=== PATIENT | male | born 1950 | race Caucasian/White ===

== ENCOUNTER 2023-10-25 12:00 | Outpatient (REF) | payer MEDICARE, OTHER, SELFPAY ==
[2023-10-25 17:32] LABS: MANUAL DIFF FLAG NO
[2023-10-25 17:34] LABS: Basophils Percent Auto 0.6 % (0-2); Eosinophils Absolute Auto 0.1 X10*3/uL (0.0-0.4); Hematocrit 43.7 % (42.0-52.0); Hemoglobin 14.8 g/dl (14.0-18.0); Imm Gran Abs Auto 0.01 X10*3/uL (0.00-0.03); Imm Gran Pct Auto 0.2 % (0.0-0.4); Lymphocytes Absolute Auto 1.3 X10*3/uL (1.2-4.9); Lymphocytes Percent Auto 25.6 % (20-40); Mean Corpuscular HGB Conc 33.9 g/dl (31.0-36.0); Mean Corpuscular Hemoglobin 31.8 pg (27.0-33.0); Mean Corpuscular Volume 93.8 fL (80.0-98.0); Mean Platelet Volume 11.5 fL (9.4-12.4); Monocytes Absolute Auto 0.6 X10*3/uL (0.1-1.2); Monocytes Percent Auto 11.3 % (2-11); Neutrophils Percent Auto 60.3 % (45-73); Platelet Count 204 X10*3/uL (160-400); Red Blood Count 4.66 X10*6/uL (4.60-5.80); Red Cell Distribution Width 12.8 % (11.0-16.0)
[2023-10-25 17:52] LABS: Alanine Aminotransferase 14 U/L (0-40); Albumin Level 4.2 g/dL (3.5-5.0); Alkaline Phosphatase 53 U/L (39-117); Anion Gap 13 (12-20); Aspartate Amino Transferase 18 U/L (5-37); Bilirubin Total 0.8 mg/dL (0.0-1.0); Blood Urea Nitrogen 17 mg/dL (9-16); Carbon Dioxide 27 mmol/L (22-29); Chloride 106 mmol/L (96-108); Estimated Glomerular Filt Rate > 60; Glucose Random 96 mg/dL (60-115); Potassium 4.5 mmol/L (3.3-5.1); Sodium 141 mmol/L (135-145); Total Protein 7.2 g/dL (6.5-8.0)
[2023-10-25 18:07] LABS: Thyroid Stimulating Hormone 0.84 uIU/mL (0.32-4.0)
[2023-10-25 18:20] LABS: Erythrocyte Sedimentation Rate 4 MM/HR (0-15)
[2023-10-28 13:58] LABS: Immunoglobulin A 80 mg/dL (70-320)
[2023-10-30 09:22] LABS: Gliadin Deamidated IgA Ab <1.0 U/mL; Gliadin Deamidated IgG Ab <1.0 U/mL; Transglutaminase Ab IgG <1.0 U/mL; Transglutaminase IgA <1.0 U/mL
[2023-10-31 11:54] LABS: Endomysial IgA Antibody Negative (Negative)
== END 2023-10-25 12:01 | disposition home or self-care (01) ==
LOC: HO.MANLDS 12:00
PROVIDERS: Visit Provider Internal Medicine
DX: K58.9 Irritable bowel syndrome, unspecified (principal); K57.30 Diverticulosis of large intestine without perforation or abscess without bleeding
CPT/HCPCS: 36415; 80053; 82784; 84443; 85025; 85652; 86231; 86258; 86364

== ENCOUNTER 2023-12-06 10:35 | Outpatient (REF) | payer MEDICARE, OTHER, SELFPAY ==
[2023-12-06 14:48] LABS: Alanine Aminotransferase 20 U/L (0-40); Alkaline Phosphatase 54 U/L (39-117); Anion Gap 10 (12-20); Aspartate Amino Transferase 17 U/L (5-37); Blood Urea Nitrogen 17 mg/dL (9-16); Calcium 9.5 mg/dL (8.4-10.2); Carbon Dioxide 28 mmol/L (22-29); Chloride 105 mmol/L (96-108); Cholesterol 216 mg/dL (<200); Estimated Glomerular Filt Rate > 60; Glucose Random 103 mg/dL (60-115); HDL Cholesterol 38 mg/dL (>40); LDL Cholesterol Calculated 162 mg/dL (<100); Potassium 4.4 mmol/L (3.3-5.1); Sodium 139 mmol/L (135-145); Total Protein 6.9 g/dL (6.5-8.0); Triglycerides 84 mg/dL (<150)
== END 2023-12-06 10:36 | disposition home or self-care (01) ==
LOC: HO.MANLDS 10:35
PROVIDERS: Visit Provider Physician Assistant
DX: E78.5 Hyperlipidemia, unspecified (principal)
CPT/HCPCS: 36415; 80053; 80061

== ENCOUNTER 2024-01-10 15:45 | Outpatient (REF) | payer MEDICARE, OTHER, SELFPAY ==
[2024-01-10 18:24] LABS: Erythrocyte Sedimentation Rate 6 MM/HR (0-15)
[2024-01-10 18:30] LABS: Alanine Aminotransferase 21 U/L (0-40); Albumin Level 4.1 g/dL (3.5-5.0); Alkaline Phosphatase 63 U/L (39-117); Anion Gap 17 (12-20); Aspartate Amino Transferase 19 U/L (5-37); Bilirubin Total 0.5 mg/dL (0.0-1.0); Blood Urea Nitrogen 21 mg/dL (9-16); C Reactive Protein < 0.10 mg/dL (< or = 0.50); Calcium 9.2 mg/dL (8.4-10.2); Carbon Dioxide 23 mmol/L (22-29); Chloride 107 mmol/L (96-108); Estimated Glomerular Filt Rate > 60; Glucose Random 77 mg/dL (60-115); Potassium 3.9 mmol/L (3.3-5.1); Sodium 143 mmol/L (135-145); Total Protein 7.2 g/dL (6.5-8.0)
[2024-01-15 03:18] LABS: Aldolase 4.5 U/L (<=8.1)
== END 2024-01-10 15:46 | disposition home or self-care (01) ==
LOC: HO.MANLDS 15:45
PROVIDERS: Visit Provider Internal Medicine
DX: E78.5 Hyperlipidemia, unspecified (principal); R10.13 Epigastric pain; T46.5X5D Adverse effect of other antihypertensive drugs, subsequent encounter
CPT/HCPCS: 36415; 80053; 82085; 82550; 85652; 86140

== ENCOUNTER 2024-04-13 09:20 | Outpatient (REF) | payer MEDICARE, OTHER, SELFPAY ==
[2024-04-13 13:39] LABS: Cholesterol 137 mg/dL (<200); HDL Cholesterol 40 mg/dL (>40); LDL Cholesterol Calculated 82 mg/dL (<100); Triglycerides 78 mg/dL (<150)
== END 2024-04-13 09:21 | disposition home or self-care (01) ==
LOC: HO.MANLDS 09:20
PROVIDERS: Visit Provider Internal Medicine
DX: E78.5 Hyperlipidemia, unspecified (principal)
CPT/HCPCS: 36415; 80061

== ENCOUNTER 2024-08-27 11:26 | Outpatient (AMB) | payer MEDICARE, OTHER, SELFPAY ==
--- NOTE | 2024-08-27 11:30 | A.OFFVIS_ITS ---
Intake Visit Reasons: New Pt - B/L neck/back pain Intake Note: Ralph is a 74 year old male right hand dominant male who presents today as a new patient for a evaluation of his B/L neck/back pain.No hx of injury. Patient reports ongoing pain for many years. Patient mentions that he is going to PT at [facility] which is not giving him relief. Patient states that he took a muscle relaxer which made him feel very sleepy. 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 Chronic. Bothers him daily. Can't lay on his back, with headache occipital/temporal area. Points to thoracic par aspinals and rhomboids. Occasionally would go to arms but not consistant. Occassionally bothers legs but denies significant low back pain. No constant numbness on fingers or toes. History of lumbar RFA at [facility] in 2023, with good relief. He also occipital nerve block last year, but didn't help. Had facet injections and also had RFA cervical, [address] [facility]. No trigger point injections yet. No epidural injections. Tried flexeril from PCP, helped a lot but makes him too sleepy. COUNTS INCLUDE 234 BEDS AT THE [facility] Social History (Updated 08/27/24 @ 11:38 by Juaquin Aquino) Alcohol intake: never Patient Tobacco Use Status: Never used Tobacco Current occupational status: retired Current occupation: right hand dominant Review of Systems Const All systems reviewed & are unremarkable except as noted in HPI and below Physical Exam Constitutional: Patient appears to be in no acute distress, well nourished and well developed. Patient was appropriately conversant and oriented. Good historian. MSK: Inspection reveals appropriate head and neck positioning. Tender on left splenius, left upper trapezius and left rhomboids. Also indicates tenderness on thoracic facets and paraspinals. Cervical ROM was full. Spurling's sign negative. Bilateral shoulder, elbow and wrist ROM WNL. No ligamentous laxity or crepitance. No increased effusion. Positive left Molina sign but negative empty can sign. No scapular winging. Strength is 5/5 in all muscle groups tested. No increased tone noted. Neurological: Neurologic examination of the upper and lower extremities was nonfocal with intact sensation, muscle stretch reflexes and without focal motor deficits . Conti?s negative bilaterally. Babinski was down going bilaterally. Clonus was negative. Gait is non-antalgic without loss of balance. Assessment & Plan Assessment & Plan (1) Myofascial pain: Code(s): M79.18 - Myalgia, other site Category: Medical (2) Cervicogenic headache: Code(s): G44.86 - Cervicogenic headache Category: Medical (3) Thoracic facet syndrome: Code(s): M47.894 - Other spondylosis, thoracic region Category: Medical Plan Suspect myofascial pain affecting splenius, trapezius and rhomboids. We talked about trial of trigger point injections here locally, before he goes back to [facility] for further treatment. We talked about pursuing thoracic facet injections at [facility] if trigger point injections do not help. Trigger point injections to be scheduled. He is unfortunately unable to tolerate cyclobenzaprine. Assessment and plan discussed with patient, and patient was agreeable. All questions were answered thoroughly. Total of 45 minutes spent today including chart review, results review, history taking, physical examination, discussion of assessment and plan, and coordinat ion of care. Mikaela Benavides MD, RASHID Board Certified, [place] Board [employer] and Rehabilitation (ABPMR) Board Certified, [place] Board of Electrodiagnostic Medicine (ABEM) Coding Level of Care Code New Pt Level 4 (67989) Diagnoses Myofascial pain M79.18 Cervicogenic headache G44.86 Thoracic facet syndrome M47.894
--- OUTSIDE RECORDS SUMMARY | 2024-08-27 12:36 | XMS_ITS | Data Portability ---
Author Organization [facility], [id number] [place] [address] Assessment No assessment recorded. Plan of Treatment Reminders Order Date Submit Date Provider Last Modified By Organization Details Last Modified Time Details Appointments None recorded. Lab None recorded. Referral None recorded. Procedures None recorded. Surgeries None recorded. Imaging None recorded. Medication Orders Augmentin 875 mg-125 mg tablet 2022 023 JOSE ALEJANDRO [facility] #[id number], [address] [place], [address], 3 17:30:06 Flonase Allergy Relief 50 mcg/actuat ion nasal spray,susp ension 2022 023 [email or web address] [facility][id number], [address] [place], [address], 3 08:25:25 Patient TargetsNo targets recorded. Patient Instructions Encounter Date Encounter Id Patient Instructions Last Modified By Organization Details Last Modified Time 08/20/2023 [id number] Acute Sinusitis: Care Instructions [email or web address] Not available 08/20/2023 17:30:02 Based on your presentation and exam, you are being diagnosed with Sinusitis. Rhinosinusitis is most often viral and will resolve on its own in 7-10 days. Symptoms that last longer than 2 weeks an antibiotic could be considered. Based on your presentation, and antibiotic was written. The following are my recommendations to help your symptoms and to allow your condition to improve: 1. Drink plenty of fluids while you are ill- stay hydrated 2. Rest - don't overexert yourself - this includes sports and any gym routines. 3. I suggest taking an antihistamine - like Claritin, Zyrtec, or Benedryl 4. If you take OTC cold medication I would recommend Marla-Aida Cold/Cough. 5. Mucinex with a lot of water is ok - if you are having trouble clearing your nasal passages of mucous. However, if you start to cough then discontinue - this can increase coughing due to a watery post nasal drip. 6. Saline Nasal [place] is recommended. Since an antibiotic was prescribed you need to complete the full course - this is important so you don't develop any antibiotic resistance to future infections. I advise taking a Probiotic like Florastor since you are on an antibiotic - this will help you re-colonize your body with the good bacteria. Typically, it will take 6 months for you to restore your normal body randee after an antibiotic. Don't hesitate to be seen again if you develop: 1. Fever > 100.5 2. Worsening Headache 3. Stiff Neck 4. Worsening Cough or Shortness of breath 5. Visual Changes. The antibiotic should start to work in 4-5 days. You may not notice immediate response. Thank you for using [facility] today, please feel free to contact our office if you have any questions or concerns. [email or web address] Not available 08/20/2023 17:29:20 Reason for Referral None Reported. Medical Equipment None Reported. Medications Name Sig Start Date Stop Date Status Note LastModified by Organization Details LastModified Time celecoxib 200 mg capsule TAKE 1 CAPSULE BY MOUTH TWICE A DAY active Not Available Not Available No t Available cyclobenzaprin e 10 mg tablet TAKE 1 TABLET BY MOUTH THREE TIMES A DAY FOR 15 DAYS active Not Available Not Available No t Available amoxicillin 500 mg capsule TAKE 1 CAPSULE BY MOUTH EVERY 8 HOURS FOR 10 DAYS active Not Available Not Available No t Available Augmentin 875 mg-125 mg tablet Take 1 tablet twice a day by oral route for 10 days. 2022 active Not Available Not Available Not Avai lable azithromycin 250 mg tablet TAKE 2 TABLETS BY MOUTH TODAY, THEN TAKE 1 TABLET DAILY FOR 4 DAYS DIRECTED active Not Available Not Available No t Available tizanidine 4 mg tablet TAKE 1 TABLET BY MOUTH TWICE A DAY NEEDED active Not Available Not Available No t Available tramadol 50 mg tablet TAKE 1 TABLET BY MOUTH EVERY 8 HOURS NEEDED FOR PAIN active Not Available Not Available No t Available dicyclomine 20 mg tablet TAKE 1 TABLET BY MOUTH FOUR TIMES A DAY NEEDED FOR 7 DAYS active Not Available Not Available No t Available hyoscyamine 0.[address] 1 TABLET UNDER THE TONGUE AND ALLOW TO DISSOLVE THREE TIMES A DAY NEEDED FOR 30 DAYS active Not Available Not Available No t Available diclofenac sodium 75 mg tablet,delayed release TAKE 1 TABLET BY MOUTH TWICE A DAY WITH MEALS FOR 30 DAYS active Not Available Not Available No t Available levofloxacin 500 mg tablet TAKE 1 TABLET BY MOUTH EVERY DAY active Not Available Not Available No t Available zolpidem 10 mg tablet TAKE 1 TABLET BY MOUTH EVERY DAY NEEDED active Not Available Not Available No t Available hydrocortisone 2.5 % topical ointment APPLY TO AFFECTED AREA TWICE A DAY active Not Available Not Available No t Available fluticasone propionate 50 mcg/actuation nasal spray,suspensi on SPRAY 2 SPRAYS INTO EACH NOSTRIL EVERY DAY FOR 30 DAYS 2022 active Not Available Not Available Not Avai lable diazepam 5 mg tablet TAKE 1 TABLET BY MOUTH TWICE A DAY active Not Available Not Available No t Available oxycodone 5 mg tablet TAKE 1 TABLET (5 MG) BY MOUTH EVERY 8 HOURS NEEDED active Not Available Not Available No t Available rosuvastatin 5 mg tablet TAKE 1 TABLET (5 MG TOTAL) BY MOUTH DAILY. active Not Available Not Available No t Available Vitals Date Recorded Body height Body mass index (BMI) Body weight Oxygen saturation Oxygen saturation in Arterial blood by Pulse oximetry Heart rate Respiratory rate Body temperature Systolic blood pressure Diastolic blood pressure Provider Name and Address Organization Details Last Updated DateTime 3 180.34 cm 25.8 kg/m2 76908.5 9 g 99 % 99 % 57 /min 18 /min 98 [degF] 182 mm[Hg] 92 mm[Hg] HARIKA HERNANDEZ [facility] [place], [address], [place] - [facility] 3 17:18:05 Social History None recorded. Functional Status None recorded. Mental Status None recorded. Family History Nothing Reported. Medical History No medical history recorded. Past Encounters Encounter ID Performer Location Encounter Start Date Encounter Closed Date Diagnosis/Indication Diagnosis SNOMED-CT Code Diagnosis ICD10 Code [id number] [address] [address] 02/20/2016 17:01:31 02/20/2016 19:02:50 [id number] [address] [place] [address] 12/19/2016 10:44:34 12/19/2016 12:12:23 [id number] [address] [facility] [place]OLPH Mccord [address] 11/17/2016 18:47:51 11/17/2016 19:22:[id number] [place] [address] 01/09/2018 16:10:21 01/09/2018 16:56:38 [id number] [address] [place] [address] 09/15/2018 11:14:19 09/15/2018 12:19:19 [id number] [address] [facility] [place] [address] 08/31/2018 13:26:41 08/31/2018 15:32:38 [id number] [address] [facility] [place] [address] 09/16/2017 11:32:53 09/16/2017 12:29:03 [id number] [address] [facility] [place] [address] 06/09/2019 14:21:27 06/09/2019 15:06:37 [id number] [address] [facility] [address] 09/18/2016 11:25:55 09/18/2016 12:11:29 [id number] [address] [address] 12/14/2016 11:53:57 12/14/2016 12:44:13 [id number] HARIKA HERNANDEZ [address] [facility] [place] [address] 08/20/2023 16:57:49 08/20/2023 17:31:37 Acute sinusitis [id number] J01.90 Health Concerns Section Related Observation LastModified by Organization Detai ls LastModified Time None Recorded Concern Status LastModified by Organization Details LastModified Time None Recorded Advance Directives Directive None Recorded Payers Encounter Date Sequence Insurance Name Policy Number Policy Echols Covered Member ID Echols Member ID Guarantor Name 01/09/2018 1 [place]: [facility] Ralph Masunmaldonado [id number] Ralph Grajeda Bielunis 01/09/2018 2 COMMONWEALTH INDEMNITY PLAN - UNICARE [id number] Brigida Fonseca Bielunis [id number] Ralph Grajeda Bielunis 08/31/2018 1 [place] [facility] Ralph Masunis [id number] Ralph Grajeda Bielunis 08/31/2018 2 COMMONWE[employer] INDEMNITY PLAN - UNICARE [id number] Brigida oFnseca Bielunis [id number] Ralph Grajeda Bielunis 09/15/2018 1 [place] [facility] Ralph Velásquez [id number] Ralph Grajeda Bielunis 09/15/2018 2 COMMONWEALTH INDEMNITY PLAN - UNICARE [id number] Brigida Fonseca Bielunis [id number] Ralph Grajeda Bielunis 06/09/2019 1 [place] [facility] Ralhp Masunis [id number] Ralph Grajeda Bielunis 06/09/2019 2 COMMONWEALTH INDEMNITY PLAN - [employer]ARE [id number] Brigida Fonseca Bielunis [id number] Ralph Grajeda Bielunis 08/20/2023 1 [place]: [employer] Ralph Masunis [id number] Ralph Grajeda Bielunis 08/20/2023 2 COMMONWEALTH INDEMNITY PLAN - [employer] [id number] Brigida Fonseca Bielunis [id number] Ralph Grajeda Bijoséunis Notes Date Note Type Note Provider Name and Address Organization Details Recorded Time 08/20/2023 text/html 73 y.o male pt presents with sinus congestion and pressure for 3 weeks. Pt has had Sinusitis in the past. He denies fever, sob or chest pain YOVANI ESPINO, PA [address] [place], [address], [place] - [facility] 08/20/2023 17:30:06
== END 2024-08-27 12:35 | disposition home or self-care (01) ==
PROVIDERS: Visit Provider Physical Medicine & Rehabilitation
DX: M79.18 Myalgia, other site (principal); G44.86 Cervicogenic headache; M47.894 Other spondylosis, thoracic region
CPT/HCPCS: 99204

== ENCOUNTER → 2024-08-27 11:26 | Outpatient (BNVA) | payer MEDICARE, OTHER, SELFPAY | PROVIDERS: Visit Provider Physical Medicine & Rehabilitation | DX: M79.18 Myalgia, other site (principal); G44.86 Cervicogenic headache; M47.894 Other spondylosis, thoracic region | CPT/HCPCS: 99202 ==

== ENCOUNTER 2024-11-30 15:48 | Outpatient (REF) | payer MEDICARE, OTHER, SELFPAY ==
[2024-11-30 17:44] LABS: MANUAL DIFF FLAG NO
[2024-11-30 17:48] LABS: Basophils Absolute Auto 0.1 X10*3/uL (0.0-0.2); Basophils Percent Auto 0.9 % (0-2); Eosinophils Absolute Auto 0.3 X10*3/uL (0.0-0.4); Eosinophils Percent Auto 2.7 % (0-4); Hematocrit 34.2 % (42.0-52.0); Hemoglobin 11.2 g/dl (14.0-18.0); Imm Gran Abs Auto 0.08 X10*3/uL (0.00-0.03); Imm Gran Pct Auto 0.9 % (0.0-0.4); Lymphocytes Absolute Auto 1.7 X10*3/uL (1.2-4.9); Lymphocytes Percent Auto 18.3 % (20-40); Mean Corpuscular HGB Conc 32.7 g/dl (31.0-36.0); Mean Corpuscular Hemoglobin 30.6 pg (27.0-33.0); Mean Corpuscular Volume 93.4 fL (80.0-98.0); Mean Platelet Volume 9.6 fL (9.4-12.4); Monocytes Absolute Auto 0.9 X10*3/uL (0.1-1.2); Monocytes Percent Auto 10.1 % (2-11); Neutrophils Absolute Auto 6.2 x10*3/uL (2.0-8.3); Neutrophils Percent Auto 67.1 % (45-73); Platelet Count 610 X10*3/uL (160-400); Red Blood Count 3.66 X10*6/uL (4.60-5.80); Red Cell Distribution Width 13.2 % (11.0-16.0); White Blood Count 9.2 X10*3/uL (4.8-10.8)
--- OUTSIDE RECORDS SUMMARY | 2024-11-30 18:29 | XMS_ITS | Clinical Summary ---
Author Organization [facility] Address [address] [place] [address] Care Team Providers Care License Clerk Name Role Phone Gil Pridelon Primary Care Provider Unav ailable Medications traMADol HCl (Ultram) 50 MG tablet ULTRAM 50MG, NEEDED #0.00, starting 01/07/2007, No Refill. Active. 0 0 01/07/2007 Active Fish Oil (FISH OIL) 1000 MG Cap FISH OIL 1000MG, 1 Every Day #0.00, starting 01/07/2007, No Refill. Active. 0 0 01/07/2007 Active Eszopiclone (Lunesta) 1 MG Tab LUNESTA 1MG, 1 Every Day At Bedtime As Needed #0.00, starting 01/07/2007, No Refill. Active. 0 0 01/07/2007 Active Active Problems Problem Noted Date Diagnosed Date Remarried 02/13/2019 Overview (09/29/2023): Onset: 01/07/2007; Description: Sleep Medicine Migration - Source Name: MARITAL STATUS: Remarried Daily alcohol use 02/13/2019 Overview (09/29/2023): Onset: 01/07/2007; Description: Sleep Medicine Migration - Source Name: ALCOHOL: The patient consumes 1 beverage daily 02/13/2019 Overview (09/29/2023): Onset: 01/07/2007; Description: Sleep Medicine Migration - Source Name: MARITAL STATUS: , living with spouse Never used tobacco 02/13/2019 Overview (09/29/2023): Onset: 01/07/2007; Description: Sleep Medicine Migration - Source Name: TOBACCO USE: Has no smoking history Restless legs syndrome 02/13/2019 Overview (09/29/2023): Onset: 01/07/2007; Description: Sleep Medicine Migration - Source Name: Syndrome, restless legs (333.94); Notes: ASSESSMENT: Atypical symptoms, but I feel that this is a likely diagnosis and trial of Rx recommended. He may have primarily insomnia and anxiety. 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 Overview (09/29/2023): Onset: 01/07/2007; Description: Sleep Medicine Migration - Source Name: Disorders, organic, sleep related bruxism Social History Tobacco Use Types Packs/Day Years Used Date Smoking Tobacco: Never Assessed Sex and Gender Information Value Date Recorded Sex Assigned at Not on file Legal Sex Male 5:32 PM EDT Gender Identity Not on file Sexual Orientation Not on file Last Filed Vital Signs Vital Sign Reading Time Taken Comments Blood Pressure 116/68 01/07/2007 8:30 AM EDT LUE/Sitting LUE/Sitting Pulse - - Temperature - - Respiratory Rate 12 01/07/2007 8:30 AM EDT Oxygen Saturation - - Inhaled Oxygen Concentration - - Weight 86 kg (189 lb 8.1 oz) 01/07/2007 8:30 AM EDT Height 179.7 cm (5' 10.75 ) 01/07/2007 8:30 AM EDT Body Mass Index 26.62 01/07/2007 8:30 AM EDT Plan of Treatment Health Maintenance Due Date Last Done Comments Hepatitis C Screening 1950 DTaP/Tdap/Td (1 - Tdap) 1969 Pneumococcal 50+ years (1 of 1 - PCV) 2001 Zoster (Shingrix) (1 of 2) 2001 COVID-19 Vaccine ( - 2023-2 5 season) 2024 Influenza (#1) 2024 RSV (1 - 1-dose 75+ series) 2026 Abdominal Aorta Imaging Discontinued HPV Vaccine Aged Out No longer eligi ble based on patient's age to complete this topic Hep A Aged Out No longer eligi ble based on patient's age to complete this topic Hep B Aged Out No longer eligi ble based on patient's age to complete this topic Hib Aged Out No longer eligi ble based on patient's age to complete this topic Meningococcal ACWY Aged Out No longer eligible based on patient's age to complete this topic Zoster (Zostavax) Discontinued Care Teams License Clerk Relationship Specialty Start Date End Date Gil Pride PCP - General 04/01/23
--- OUTSIDE RECORDS SUMMARY | 2024-11-30 18:29 | XMS_ITS | Continuity of Care Document ---
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) MDM HIGH MUST MEET 2 OUT OF 3 ELEMENTS: PROBLEMS, DATA OR RISK ELEMENT 1: PROBLEMS 1 OR MORE CHRONIC ILLNESS W/SEVERE EXACERBATION, PROGRESSION MAY REQUIRE HOSPITAL LEVEL CARE OR 1 ACUTE OR CHRONIC ILLNESS OR INJURY THAT POSES A THREAT TO LIFE OR BODILY FUNCTION ELEMENT 2: DATA: MUST MEET 2 OF 3 CATEGORIES CATEGORY 1 REVIEW OF PRIOR EXTERNAL NOTES REVIEW OF THE RESULTS ORDERING OF EACH TEST ASSESSMENT REQUIRING INDEPENDENT HISTORIAN(S) CATEGORY 2: INDEPENDENT INTERPRETATION OF TESTS BY ANOTHER PROVIDER/SPECIALI ST CATEGORY 3: DISCUSSION OF MGT OR TEST INTERPRETATION W/EXTERNAL PHYSICIAN/SPECIAL IST ELEMENT 3: RISK HIGH RISK OF MORBIDITY FROM ADDITIONAL DIAGNOSTIC TESTING OR TREATMENT PROVIDER MUST THOROUGHLY DOCUMENT EACH ELEMENT THAT IS COVERED The patient presented to their appointment today for multiple concerns requiring moderate to high-level decision making and took over 40-45 minutes for an adequate and appropriate history, exam, assessment and treatment plan. This appointment was done with an established patient. Not available 11/30/2024 16:54:51 Plan of Treatment Reminders Order Date Submit Date Provider Last Modified By Organization Details Last Modified Time Details Appointments FOLLOW UP 2024 04:15P M DR BABOTT Not available Not available Not available FOLLOW UP 2024 11:45A M HARIKA RAY Not available Not available Not available Lab None recorded. Referral None recorded. Procedures None recorded. Surgeries None recorded. Imaging CT, abdomen, w/ contrast 2024 025 [facility], [address], [place], [address], 11/30/2024 16:56:04 Medication Orders None recorded. Patient TargetsNo targets recorded. Patient InstructionsNo instructions recorded. Reason for Referral None Reported. Problems Name Problem SNOMED Code Status Onset Date Resolution Date Notes Provider Name and Address Organization Details Recorded Time Headache 15982716 Active 2022 Jennifer galeas [facility] 3 09:01:52 Cervical facet joint pain 702681601 [facility] 09:[facility] Hyperlipi demia 37528465 Active 2022 Jennifer galeas [facility] 3 09:02:14 Fibromyal parisa 281128231 Active 2022 Jennifer galeas [facility] 3 09:02:19 Insomnia 854855843 Active 2022 Jennifer galeas [facility] 3 09:02:24 Prediabet es 430306041 Active 2022 Jennifer galeas [facility] 3 09:02:30 Abdominal bloating 916923573 Active 2022 Jennifer galeas [facility] 3 09:02:38 Irritable bowel syndrome 97199388 Active 2022 Jennifer galeas [facility] 3 09:02:42 Abdominal aortic atheroscl erosis 494269895 Active 2022 Jennifer galeas [facility] 3 09:02:52 Erectile dysfuncti on 648585228 Active 2022 Jennifer galeas [facility] 3 09:03:02 Cielo thyroidit is 04629360 Active 2022 Jennifer galeas [facility] 3 09:03:12 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 222027621905 109 Active 2022 Jenniferjess Tellez null, [facility] 3 09:03:24 Family history of polyp of colon 117802813 Active 2022 Jennifer Tellez null, [facility] 3 09:10:53 Family history of diabetes mellitus 925946832 Active 2022 Jenniferjess Tellez null, [facility] 3 09:11:01 Family history of malignant neoplasm of prostate 452939603 Active 2022 Jenniferjess Tellez null, [facility] 3 09:11:10 Lumbar spondylos is 691517799 Active 2022 Robin Abbott, [address] [place] [address], [phone], [facility], [place] 3 14:52:09 Acute sinusitis 64904615 Active 2022 Robin Abbott, [address] [place] [address], [phone], [facility], [place] 3 14:16:15 Cervico-o ccipital neuralgia 47294378 Active 2022 HARIKA RAY [address] [place] [address], [address], [facility], [place] 3 16:27:39 Vitamin D deficienc y 43803242 Active 2022 Robin Abbott, [address] [place] [address], [address], [facility], [place] 3 11:14:40 Osteoarth ritis 097790738 Active 2022 HARIKA RAY [address] [place] [address], [address], [facility], [place] 3 13:27:19 Diverticu losis of colon 505725354 Active 2023 Robin Abbott DO [address] [place] [address], [phone], [facility], [place] 4 11:47:44 Epigastri c pain 52841225 Active 2023 Robin Abbott DO [address] [place] [address], [address], [facility], [place] 4 15:29:23 Hiatal hernia with gastroeso phageal reflux 954117441 Active 2023 HARIKA RAY [address] [place] [address], [phone], [facility], [place] 4 13:59:50 Male pattern alopecia 92023922 Active 2023 Robin Abbott DO [address] [place] [address], [address], [facility] 4 15:28:02 Myalgia caused by statin 067575024906 12524 Active 2023 Robin Abbott DO [address] [place] [address], [address], [facility], [place] 4 15:34:34 Cough 92123224 Active 2023 Robin Abbott DO [address] [place] [address], [phone], [facility] 4 13:31:04 Gastritis 6587429 Active 2024 HARIKA RAY [address] [place] [address], [address], [facility], [place] 5 15:20:34 Fever 387494528 Active 2024 HARIKA RAY [address] [place] [address], [address], [facility], [place] 5 15:33:01 Anemia 521633133 Active 2024 Robin Abbott DO [address] [place] [address], [address], [facility], [place] 5 08:07:11 Problem Notes None recorded. Medical Equipment None Reported. Allergies Allergen ID Allergen Name Allergen Category Reaction Reaction Severity Criticality Documentation Date Start Date Code Code System Note Provider Name and Address Organization Details Recorded Time 6328 cephalexi n medicatio n Not available Not available Not available 09/18/2022 2231 RxNorm Jennifer Geoff galeas [facility] 3 09:01:36 6329 pravastat in medicatio n Not available Not available Not available 09/18/2022 21322 RxNorm Jennifer galeas [facility] 3 09:01:42 6330 Bactrim medicatio n Not available Not available Not available 09/18/2022 57192 9 RxNorm Jennifer galeas [facility] 3 09:01:46 6988 oxycodone medicatio n Not available Not available Not available 02/18/2023 7804 RxNorm GI upset Rony Sandoval gudelia [facility] 4 15:03:17 Medications Name Sig Start Date Stop Date Status Note LastModified by Organization Details LastModified Time celecoxib 200 mg capsule TAKE 1 CAPSULE BY MOUTH EVERY DAY NEEDED FOR PAIN 11/14 completed Not Available Not Available Not Available cyclobenzap rine 10 mg tablet TAKE 1 TABLET BY MOUTH THREE TIMES A DAY FOR 15 DAYS 10/24 completed Not Available Not Available Not Available amoxicillin 500 mg capsule TAKE 1 CAPSULE BY MOUTH EVERY 8 HOURS FOR 10 DAYS 10/24 completed Not Available Not Available Not Available prednisone 10 mg tablet PLEASE SEE ATTACHED FOR DETAILED DIRECTION S 09/19 completed Not Available Not Available Not Available doxycycline hyclate 100 mg capsule TAKE 1 CAPSULE BY MOUTH TWICE A DAY FOR 10 DAYS 11/24 completed Not Available Not Available Not Available tizanidine 4 mg tablet TAKE 1 TABLET BY MOUTH TWICE A DAY NEEDED 10/24 completed Not Available Not Available Not Available meloxicam 15 mg tablet TAKE 1 TABLET BY MOUTH EVERY DAY 09/19 completed Not Available Not Available Not Available sucralfate 1 gram tablet TAKE 1 TABLET BY MOUTH FOUR TIMES A DAY DIRECTED FOR 15 DAYS active Not Available Not Available No t Available famotidine 40 mg tablet TAKE 1 TABLET BY MOUTH EVERY DAY NEEDED active Not Available Not Available No t Available prednisone 20 mg tablet TAKE 2 TABLETS BY MOUTH EVERY DAY FOR 7 DAYS 08/20 /2024 completed Not Available Not Available Not Available fluorouraci l 5 % topical cream PLEASE SEE ATTACHED FOR DETAILED DIRECTION S 09/19 completed Not Available Not Available Not Available Zithromax Z-Isaac 250 mg tablet TAKE 2 TABLETS (500 MG) BY ORAL ROUTE ONCE DAILY FOR 1 DAY THEN 1 TABLET (250 MG) BY ORAL ROUTE ONCE DAILY FOR 4 DAYS 07/26 completed Not Available Not Available Not Available minoxidil 2.5 mg tablet TAKE 2 TABLETS BY MOUTH EVERY DAY 2023 active Not Available Not Available Not Avai lable tramadol 50 mg tablet TAKE 1 TABLET BY MOUTH EVERY 8 HOURS NEEDED FOR PAIN 04/09 completed Not Available Not Available Not Available triamcinolo ne acetonide 0.1 % topical cream APPLY TO AFFECTED AREA TWICE A DAY 11/26 completed Not Available Not Available Not Available butalbital- acetaminoph en-caffeine 50 mg-325 mg-40 mg tablet Take 1 tablet every 4 hours by oral route as needed for 7 days. 2023 active Not Available Not Available Not Avai lable hydrocortis one 2.5 % topical cream with perineal applicator INSERT INTO THE RECTUM 2 (TWO) TIMES A DAY. DO NOT USE LONGER THAN 7 DAYS IN A ROW. active Not Available Not Available No t Available methocarbam ol 750 mg tablet TAKE 1 TABLET BY MOUTH TWICE A DAY NEEDED FOR MUSCLE SPASMS active Not Available Not Available No t Available dicyclomine 20 mg tablet TAKE 1 TABLET BY MOUTH FOUR TIMES A DAY NEEDED FOR 7 DAYS 11/14 completed Not Available Not Available Not Available doxycycline monohydrate 100 mg capsule TAKE 1 CAPSULE BY MOUTH TWICE A DAY FOR 10 DAYS 09/19 completed Not Available Not Available Not Available pantoprazol e 40 mg tablet,triston yed release TAKE 1 TABLET BY MOUTH EVERY DAY DIRECTED active Not Available Not Available No t Available hyoscyamine 0.125 mg sublingual tablet 04/09 completed Not Available Not Available Not Available omeprazole 20 mg capsule,del ayed release TAKE 1 CAPSULE BY MOUTH EVERY DAY 30 MINUTES BEFORE MORNING MEAL FOR 90 DAYS active Not Available Not Available No t Available diclofenac sodium 75 mg tablet,triston yed release TAKE 1 TABLET BY MOUTH TWICE A DAY WITH MEALS FOR 30 DAYS 11/14 completed Not Available Not Available Not Available levofloxaci n 500 mg tablet Take 1 tablet every day by oral route. 08/05 completed Not Available Not Available Not Available zolpidem 10 mg tablet TAKE 1 TABLET BY MOUTH EVERY DAY NEEDED active Not Available Not Available No t Available albuterol sulfate HFA 90 mcg/actuati on aerosol inhaler INHALE 2 PUFFS EVERY 4 HOURS NEEDED FOR WHEEZING active Not Available Not Available No t Available hydrocortis one 2.5 % topical ointment APPLY TO AFFECTED AREA TWICE A DAY 11/24 completed Not Available Not Available Not Available ketoconazol e 2 % topical cream APPLY TWICE DAILY TO RASH OF THE PENIS UNTIL CLEAR. MAY MIX WITH OTC HYDROCORT ISONE 01/09 completed Not Available Not Available Not Available betamethaso ne dipropionat e 0.05 % topical ointment APPLY TO AFFECTED AREAS TWICE A DAY UP TO 2 WEEKS ON, 1 WEEK OFF NEEDED FOR RASH 09/19 completed Not Available Not Available Not Available phenobarb-h yoscyamn-at ropine-scop 16.2 mg-0.1037 mg-0.0194 mg tablet TAKE 2 TABLETS 3 TIMES A DAY BY ORAL ROUTE NEEDED FOR 10 DAYS. 11/14 completed Not Available Not Available Not Available fluticasone propionate 50 mcg/actuati on nasal spray,suspe nsion SPRAY 2 SPRAYS INTO EACH NOSTRIL EVERY DAY FOR 30 DAYS 10/24 completed Not Available Not Available Not Available doxycycline hyclate 100 mg tablet TAKE 1 TABLET BY MOUTH TWICE A DAY FOR 10 DAYS 09/19 completed Not Available Not Available Not Available diazepam 5 mg tablet TAKE 1 TABLET BY MOUTH TWICE A DAY active Not Available Not Available No t Available finasteride 1 mg tablet TAKE 1 TABLET BY MOUTH EVERY DAY active Not Available Not Available No t Available amoxicillin 875 mg-potassiu m clavulanate 125 mg tablet TAKE 1 TABLET BY MOUTH TWICE A DAY FOR 10 DAYS 10/24 completed Not Available Not Available Not Available oxycodone 5 mg tablet TAKE 1 TABLET BY MOUTH EVERY 8 HOURS NEEDED FOR PAIN 11/24 completed Not Available Not Available Not Available ezetimibe 10 mg tablet TAKE 1 TABLET BY MOUTH EVERY DAY FOR 30 DAYS active Not Available Not Available No t Available rosuvastati n 5 mg tablet TAKE 1 TABLET BY MOUTH EVERY DAY 01/23 completed Not Available Not Available Not Available Linzess 145 mcg capsule TAKE 1 CAPSULE BY MOUTH EVERY DAY active Not Available Not Available No t Available Eliquis 2.5 mg tablet TAKE 1 TABLET (2.5 MG TOTAL) BY MOUTH TWICE A DAY FOR 14 DAYS 11/30 completed Not Available Not Available Not Available Repatha SureClick 140 mg/mL subcutaneou s pen injector INJECT 1 ML (140 MG TOTAL) UNDER THE SKIN EVERY 14 DAYS. active Not Available Not Available No t Available Flowflex COVID-19 Antigen Home Test kit TAKE DIRECTED 09/19 completed Not Available Not Available Not Available Paxlovid 300 mg (150 mg x 2)-100 mg tablets in a dose pack TAKE 3 TABLETS BY MOUTH TWICE A DAY FOR 5 DAYS 09/19 completed Not Available Not Available Not Available Vitals Date Recorded Body height Body mass index (BMI) Body weight Heart rate Oxygen saturation Oxygen saturation in Arterial blood by Pulse oximetry Systolic blood pressure Diastolic blood pressure Provider Name and Address Organization Details Last Updated DateTime 179.07 cm 25 kg/m2 72064.8 5 g 99 /min 98 % 98 % 140 mm[Hg] 60 mm[Hg] Krupa Cobb [facility] 16:16:42 Social History Question Answer Notes LastModified by Organizat ion Details LastModified Time Tobacco Smoking Status Former Smoker Robin Abbott DO [address] [place] [address], [address], [facility], [place] 09/19/2022 14:19:29 What Was The Date Of Your Most Recent Tobacco Screening? 04/14/2024 [email or web address] Information not available 04/14/2024 Do You Or Have You Ever Used Any Other Forms Of Tobacco Or Nicotine? No Information not available 09/19/2022 Sex: Unknown Functional Status None recorded. Mental Status None recorded. Family History Nothing Reported. Medical History No medical history recorded. Past Encounters Encounter ID Performer Location Encounter Start Date Encounter Closed Date Diagnosis/Indication Diagnosis SNOMED-CT Code Diagnosis ICD10 Code Diagnosis Note [id number] HARIKA RAY [facility] [address],[facility] [place] [address] 11/24/2024 13:59:01 11/24/2024 15:54:27 Gastritis 6013722 K29.00 will switch up his medication Fever 754626249 R50.9 will send referral for nurse consult Hiatal her karley with gastroesophageal reflux 445471763 K21.9 meds adjusted [id number] Robin Abbott DO [facility] [address] [place] [address] 11/30/2024 16:03:15 11/30/2024 16:56:28 Abdominal bloating 509143568 R14.0 see below Diverticul osis of colon 163940198 K57.30 we will consider treating this if above unhelpful Epigastric pain 79822241 R10.13 long detailed discussion we will eliminate ALL the otc and rx pain meds this is a must as otc nsaid gastritis is a real possibilit yalso will have him stop the repatha (having a lot of URI and laryngeal mucous) Hyperlipidemia 01981569 E78.5 will need to rechk Anemia 630403999 D64.9 will rechk Depression screening 171 315691 Z13.31 neg;;;; Health Concerns Section Related Observation LastModified by Organization Detai ls LastModified Time None Recorded Concern Status LastModified by Organization Details LastModified Time None Recorded Payers Encounter Date Sequence Insurance Name Policy Number Policy Echols Covered Member ID Echols Member ID Guarantor Name 11/30/2024 2 [facility] [employer] F (MEDICARE SUPPLEMENT) [id number] Ralph Velásquez [id number] Ralph Velásquez 11/30/2024 1 [place] [employer] Ralph Velásquez [id number] Ralph Velásquez Notes Date Note Type Note Provider Name and Address Organization Details Recorded Time 12/01/19 25 text/htm l Abdominal PainReported bypatient.Location:epigastr ic Onset/Timing:better Alleviating Factors:nothing gives relief Associated Symptoms:no fever; no chills; no blood in the urine; no heartburn; no shortness of breath; no nausea; no vomiting; no diarrhea; no constipation; normal stool; no blood in stool; normal appetite Other:denies possible Pain Radiation:no radiationAnemiaReported bypatient.Timing:better Associated Symptoms:no shortness of breath; no chest pain; no abdominal pain; no nausea; no vomiting; no melena; no blood in stool; no weakness; no fatigue; no palpitations; no excessive sweating; normal nails; tolerant of cold; no nonfood cravings; no behavior problems; no symptoms of peripheral neuropathy; normal balance; no jaundice; no pallor; no weight lossCare Management - Esophageal RefluxReported bypatient.Symptomsasymptoma tic; no difficulty swallowing; no pain swallowing; no postprandial pain Severity:improving Associated Symptoms:no frequent coughing; no feeling of fullness/mass in throat; no hoarseness; no food getting stuck; no belching/burping; no nausea; no vomiting; not vomiting blood; no regurgitation; no shortness of breath; no chest pain; no heartburn; no difficulty swallowing; no pain when swallowing; no bad taste; no decreased appetite; no weight loss; no black/tarry stools; no fatigue; no throat painCare Management - HyperlipidemiaReported bypatient.Control:usually well controlled; improving; at goal Complications:no coronary artery disease; no heart attack; no cardiovascular disease; no pancreatitis; no stroke relates having a great deal of epigastric pain and is very uncomfortable and is losing weight and has bee n going on for 3 months relates that he has been taking various pain meds including nsaids and tylenol etc and he says any amount of this sets off severe epigastric painwork up last year including UGI showed a large hiatal herniahas lost about 10 lbs but eating any heavy food he is not tolerating he has lost signif blood with hemorrhoids about a month ago also has a lot of mucous that he has been coughing up feels strongly that this is related to him taking otc nsaids including asa and even tylenol got horribly worse when he took eliquis Robin Abbott, DO [address] [facility] [address], [place], [address], [facility] 11/30/2024 16:56:27
--- OUTSIDE RECORDS SUMMARY | 2024-11-30 18:29 | XMS_ITS | Clinical Summary ---
Author Organization 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 Active calcium citrate/vitamin D2 (JEFFRY-CITRATE ORAL) Take by mouth. Active celecoxib (CeleBREX) 200 mg capsule Take 1 capsule (200 mg total) by mouth 2 (two) times a day. 04/27/2023 Active CHOLECALCIFEROL , VITAMIN D3, ORAL Take by mouth. Active diazePAM (VALIUM) 5 mg tablet Take 1 tablet (5 mg total) by mouth 2 (two) times a day. 09/04/2023 Active linaclotide (LINZESS ORAL) Take 1 capsule by mouth daily. Active evolocumab (Repatha SureClick) 140 mg/mL pen injector injection INJECT 1 ML (140 MG TOTAL) UNDER THE SKIN EVERY 14 DAYS. 02/05/2024 Active RESVERATROL ORAL Take by mouth. Active zolpidem (AMBIEN) 10 mg tablet Take 1 tablet (10 mg total) by mouth daily as needed. 09/30/2023 Active hydrocortisone (ANUSOL-HC) 2.5 % rectal cream Insert into the rectum 2 (two) times a day. Do not use longer than 7 days in a row. 28 g 10/29/2024 Active Active Problems Problem Noted Date Diagnosed Date Prolapsed internal hemorrhoids, grade 2 08/01/20 21 Thoracic spine pain 09/30/2020 Strain of thoracic spine 09/30/2020 Encounters Date Type Department Care Team Description 10/29/2024 1:30 PM EST Office Visit [facility] [address] [place] [address] Brit Ivey PA Rectal bleeding (Primary Dx); Grade III internal hemorrhoids; Constipation, unspecified constipation type from Last 3 Months Immunizations Name Administration Dates Next Due Moderna SARS-CoV-2 COVID-19, mRNA, LNP-S, preservative free 08/21/2021,11/15/2020,10/18/2020 Family History Medical History Relation Name Comments Diabetes Brother Arthritis Mother Relation Name Status Comments Brother Mother Social History Tobacco Use Types Packs/Day Years Used Date Smoking Tobacco: Former Smokeless Tobacco: Never Alcohol Use Standard Drinks/Week Comments No 0 (1 standard drink = 0.6 oz pur e alcohol) Sex and Gender Information Value Date Recorded Sex Assigned at Not on file Legal Sex Male 11:21 AM EST Gender Identity Not on file Sexual Orientation Not on file Obstetrics History Last Filed Vital Signs Vital Sign Reading Time Taken Comments Blood Pressure 98/70 10/29/2024 1:47 PM EST Pulse 74 03/09/2024 1:32 PM EDT Temperature - - Respiratory Rate - - Oxygen Saturation - - Inhaled Oxygen Concentration - - Weight 78 kg (172 lb) 10/29/2024 1:47 PM EST Height 180.3 cm (5' 11 ) 10/29/2024 1:47 PM EST Body Mass Index 23.99 10/29/2024 1:47 PM EST Plan of Treatment Health Maintenance Due Date Last Done Comments DTaP,Tdap,and Td Vaccines (1 - Tdap) 1970 Pneumococcal Vaccine: 50+ Years (1 of 1 - PCV) 2001 Zoster Vaccines (1 of 2) 2001 Abdominal Aortic Aneurysm (AAA) Screen 08/04/2022 Colorectal Cancer Screening: Colonoscopy 08/04/2022 Depression Screening 08/04/2022 Falls Risk Assessment 08/04/2022 Medicare Annual Wellness Visit 08/04/2022 Social Influencers of Health Screening 08/04/2022 COVID-19 Vaccine (4 - 2023-2 5 season) 2024 08/21/2021, 11/15/2020, 10/18/2020 Influenza Vaccine (Season Ended) 2025 RSV Immunization Adult Patients (1 - 1-dose 75+ series) 2026 Cholesterol Screening (Lipid Panel) 04/15/2028 04/15/2023 Hepatitis C Screening Completed 02/05/2018 HIB Vaccines Aged Out No longer eligi ble based on patient's age to complete this topic HPV Vaccines Aged Out No longer eligi ble based on patient's age to complete this topic Hepatitis A Vaccines Aged Out No long er eligible based on patient's age to complete this topic Hepatitis B Vaccines Aged Out No long er eligible based on patient's age to complete this topic IPV Vaccines Aged Out No longer eligi ble based on patient's age to complete this topic MMR Vaccines Aged Out No longer eligi ble based on patient's age to complete this topic Meningococcal ACWY Vaccine Aged Out N o longer eligible based on patient's age to complete this topic Meningococcal B Vaccine Aged Out No l onger eligible based on patient's age to complete this topic RSV Immunization Patients Under 20 months Aged Out No longer eligible b ased on patient's age to complete this topic Varicella Vaccines Aged Out No longer eligible based on patient's age to complete this topic Procedures Procedure Name Priority Date/Time Associated Diagnosis Comments LIPID PANEL Routine 04/15/2023 HEPATITIS C SCREENING Routine 02/05/2018 from Last 3 Months or Most Recently Relevant to Health Maintenance Results * Lipid panel (04/15/2023) LDL/HDL Ratio 0 Comment:no interpretation Triglycerides 0 mg/dL Comment:no interpretation Cholesterol 0 mg/dL Comment:no interpretation HDL 0 mg/dL Comment:no interpretation LDL Cholesterol 0 mg/dL Comment:no interpretation Blood Venous blood specimen / Unknown Historical Provider LAB BLOOD ORDERABLES Poly l Result * Hepatitis C Screening (02/05/2018) Hepatitis C Screening abstracted us Historical Provider MD HEALTH MAINTENANCE Final Result from Last 3 Months or Most Recently Relevant to Health Maintenance Insurance MEDICARE [facility] Care Teams Band Saw Operator Cake Cutting Relationship Specialty Start Date End Date Robin Snow DO [address] [place], [place] PCP - General 07/02/23
--- OUTSIDE RECORDS SUMMARY | 2024-11-30 18:29 | XMS_ITS ---
Author Name [facility] Organization Unknown History of Medication Use Medication Directions Dispensed Refills Start Date End Date Stat calcium citrate/vitamin D2 (JEFFRY-CITRATE ORAL) Take by mouth. ac tive rosuvastatin (CRESTOR) 5 mg tablet Take 1 tablet (5 mg total) by mouth daily. 09/29/2020 5 aborted finasteride (PROPECIA) 1 mg tablet Take 1 tablet (1 mg total) by mouth daily. 02/05/2024 5 aborted celecoxib (CeleBREX) 200 mg capsule Take 1 capsule (200 mg total) by mouth 2 (two) times a day. 04/27/2023 active diclofenac (VOLTAREN) 75 mg EC tablet 10/19/2023 5 aborted minoxidiL (LONITEN) 2.5 mg tablet Take 1 tablet (2.5 mg total) by mouth 2 (two) times a day. 5 aborted diazePAM (VALIUM) 5 mg tablet Take 1 tablet (5 mg total) by mouth 2 (two) times a day. 09/04/2023 active ketoconazole (NIZORAL) 2 % cream APPLY TWICE DAILY TO RASH OF THE PENIS UNTIL CLEAR. MAY MIX WITH OTC HYDROCORTISONE 10/11/2023 aborted hydrocortisone (ANUSOL-HC) 2.5 % rectal cream Insert into the rectum 2 (two) times a day. Do not use longer than 7 days in a row. 10/29/2024 active evolocumab (Repatha SureClick) 140 mg/mL pen injector injection INJECT 1 ML (140 MG TOTAL) UNDER THE SKIN EVERY 14 DAYS. 02/05/2024 active zolpidem (AMBIEN) 10 mg tablet Take 1 tablet (10 mg total) by mouth daily as needed. 09/30/2023 active Problems Problem Status Onset Date Problem Type Date of Resolution Source Constipation, unspecified constipation type active EncounterDiagnosisAct C T_THNEMG Prolapsed internal hemorrhoids, grade 2 active 2021-08-01 ProblemAct [facility]_THN[facility] Thoracic spine pain active 2020-09-30 ProblemAct [facility] Strain of thoracic spine active 2020-09-30 ProblemAct [facility] Grade III internal hemorrhoids active EncounterDiagnosisAct CT_THN EMG Rectal bleeding active EncounterDiagnosisAct [facility]NEM[facility] Immunizations Vaccine Date Source Lot Number Status Moderna SARS-CoV-2 COVID-19, mRNA, LNP-S, preservative free 11/15/2020 [facility] [id number] completed Moderna SARS-CoV-2 COVID-19, mRNA, LNP-S, preservative free 10/18/2020 [facility] [id number] completed Moderna SARS-CoV-2 COVID-19, mRNA, LNP-S, preservative free 08/21/2021 [facility]_THNEMG [id number] completed Encounters Encounter Type Encounter Reason Primary Diagnosis Location Date Ambulatory [facility] 10/29 Care Team Organization Name Specialty Phone Email Start Date End [facility] Primary Care 10/24 [facility] Primary Care 01/2025
--- OUTSIDE RECORDS SUMMARY | 2024-11-30 18:29 | XMS_ITS | Data Portability ---
Author Organization [facility]IKA [facility], [id number] [place] [address] Assessment No assessment recorded. Plan of Treatment Reminders Order Date Submit Date Provider Last Modified By Organization Details Last Modified Time Details Appointments None recorded. Lab None recorded. Referral None recorded. Procedures None recorded. Surgeries None recorded. Imaging None recorded. Medication Orders Augmentin 875 mg-125 mg tablet 2022 023 JOSE ALEJANDRO [id number], [address] [place], [address], 3 17:30:06 Flonase Allergy Relief 50 mcg/actuat ion nasal spray,susp ension 2022 023 [email or web address] [id number], [address] [place], [address], 3 08:25:25 Patient TargetsNo targets recorded. Patient Instructions Encounter Date Encounter Id Patient Instructions Last Modified By Organization Details Last Modified Time 08/20/2023 [id number] Acute Sinusitis: Care Instructions [email or web address] Not available 08/20/2023 17:30:02 Based on your [...] watery post nasal drip. 6. Saline Nasal [place] is recommended. Since an antibiotic was prescribed [...] notice immediate response. Thank you for using [facility] today, please feel free to contact our office if you have any questions or concerns. [email or web address] Not available 08/20/2023 17:29:20 Reason for Referral [...] Updated DateTime 3 180.34 cm 25.8 kg/m2 78716.5 9 g 99 % 99 % 57 /min 18 /min 98 [degF] 182 mm[Hg] 92 mm[Hg] HARIKA HERNANDEZ [facility] [place], [address], [place] - [facility] 3 17:18:05 Social History None recorded. Functional Status None recorded. Mental Status None recorded. Family History Nothing Reported. Medical History No medical history recorded. Past Encounters Encounter ID Performer Location Encounter Start Date Encounter Closed Date Diagnosis/Indication Diagnosis SNOMED-CT Code Diagnosis ICD10 Code Diagnosis Note [id number] [address] [address] 02/20/2016 17:01:31 02/20/2016 19:02:50 [id number] [address] [facility] [place] [address] 12/19/2016 10:44:34 12/19/2016 12:12:23 [id number] [address] [facility] [place] [address] 11/17/2016 18:47:51 11/17/2016 19:22:26 [id number] [place] [address] 01/09/2018 16:10:21 01/09/2018 16:56:38 [id number] [address] [place] [address] 09/15/2018 11:14:19 09/15/2018 12:19:19 [id number] [address] [place] [address] 08/31/2018 13:26:41 08/31/2018 15:32:38 [id number] [address] [place] [address] 09/16/2017 11:32:53 09/16/2017 12:29:03 [id number] [address] [place] [address] 06/09/2019 14:21:27 06/09/2019 15:06:37 [id number] [address] [facility] [place] [address] 09/18/2016 11:25:55 09/18/2016 12:11:29 [id number] [address] [address] 12/14/2016 11:53:57 12/14/2016 12:44:13 [id number] HARIKA HERNANDEZ [address] [place] [address] 08/20/2023 16:57:49 08/20/2023 17:31:37 Acute sinusitis [id number] J01.90 TAKE A PROBIOTIC OR EAT YOGURT WHILE ON ANTIBIOTIC FOLLOW UP WITH PCP THIS WEEK ER IF WORSE OR CHEST PAIN OR SHORTNESS OF BREATH - Use the medication s prescribed . - Decongesta nts if tolerated. - Recommend recheck if fever develops or no improvemen t in 5-7 days. - Use saline nasal spray or neti-pot flushes once to twice a day to loosen mucus in sinuses. -Use a cool mist humidifier in the room that you sleep to add moisture to the air, which should soothe the airways and help loosen any mucus that may be present. -Call 911 or proceed to nearest Emergency Department if you develop shortness of breath, chest pain, severe headache or other symptoms that concern you. Health Concerns Section Related Observation LastModified by Organization Detai ls LastModified Time None Recorded Concern Status LastModified by Organization Details LastModified Time None Recorded Advance Directives Directive None Recorded Payers Encounter Date Sequence Insurance Name Policy Number Policy Echols Covered Member ID Echols Member ID Guarantor Name 01/09/2018 1 [place] [employer] Ralph Velásquez [id number] Ralph Grajeda Bijoséunis 01/09/2018 2 [facility] [id number] Brigida Masunmaldonado [id number] Ralph Grajeda Bielunis 08/31/2018 1 [place] [employer] Ralph Velásquez [id number] Ralph Grajeda Bielunis 08/31/2018 2 [facility] [id number] Brigida Fisherelunis [id number] Ralph Grajeda Bielunis 09/15/2018 1 [place] [employer] Ralph Velásquez [id number] Ralph Grajeda Bielunis 09/15/2018 2 [facility] [id number] Brigida Fonseca Bielunis [id number] Ralph Grajeda Bielunis 06/09/2019 1 [place] [employer] Ralph Velásquez [id number] Ralph Velásquez 06/09/2019 2 [facility] [id number] Brigida Velásquez [id number] Ralph Velásquez 08/20/2023 1 [place] [facility] Ralph Velásquez [id number] Ralph Velásquez 08/20/2023 2 [facility] [id number] Brigida Velásquez [id number] Ralph Velásquez Notes Date Note Type Note Provider Name and Address Organization Details Recorded Time 08/20/2023 text/html 73 y.o male pt presents with sinus congestion and pressure for 3 weeks. Pt has had Sinusitis in the past. He denies fever, sob or chest pain HARIKA HERNANDEZ [address] [place], [place] [address], [address], [place] - [facility] 08/20/2023 17:30:06
--- OUTSIDE RECORDS SUMMARY | 2024-11-30 18:29 | XMS_ITS | Clinical Summary ---
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 0 09/29/2020 Activ e celecoxib (CeleBREX) 200 MG capsule Take 1 capsule (200 mg total) by mouth 2 (two) times a day. 0 04/27/2023 Active diazePAM (VALIUM) tablet 5 mg Take 1 tablet (5 mg total) by mouth 2 (two) times a day. 0 09/04/2023 Active diclofenac (VOLTAREN) 75 MG EC tablet 0 10/19/2023 Active ketoconazole (NIZORAL) 2 % cream APPLY TWICE DAILY TO RASH OF THE PENIS UNTIL CLEAR. MAY MIX WITH OTC HYDROCORTISONE 0 10/11/2023 Active zolpidem (AMBIEN) 10 MG tablet Take 1 tablet (10 mg total) by mouth daily as needed. 0 09/30/2023 Active Ascorbic Acid (VITAMIN C PO) Take by mouth. 0 Active Cholecalciferol (D3 PO) Take by mouth. 0 Active Calcium Citrate (JEFFRY-CITRATE PO) Take by mouth. 0 Acti ve RESVERATROL PO Take by mouth. 0 Active Repatha SureClick 140 MG/ML injection INJECT 1 ML (140 MG TOTAL) UNDER THE SKIN EVERY 14 DAYS. 0 02/05/2024 Active finasteride (PROPECIA) 1 MG tablet Take 1 tablet (1 mg total) by mouth daily. 0 02/05/2024 Activ e minoxidil (LONITEN) 2.5 MG tablet Take 1 tablet (2.5 mg total) by mouth 2 (two) times a day. 0 Active linaCLOtide (LINZESS PO) Take 1 capsule by mouth daily. 0 Active Active Problems Problem Noted Date Diagnosed Date Prolapsed internal hemorrhoids, grade 2 08/01/20 21 Thoracic spine pain 09/30/2020 Strain of thoracic spine 09/30/2020 Family History Medical History Relation Name Comments Diabetes Brother Arthritis Mother Relation Name Status Comments Brother Mother Social History Tobacco Use Types Packs/Day Years Used Date Smoking Tobacco: Former Smokeless Tobacco: Never Tobacco Cessation:Counseling Given: Not Answered Alcohol Use Standard Drinks/Week Comments No 0 (1 standard drink = 0.6 oz pur e alcohol) Sex and Gender Information Value Date Recorded Sex Assigned at Not on file Gender Identity Not on file Sexual Orientation Not on file Job Start Date Occupation Industry Not on file Not on file Not on file Last Filed Vital Signs Vital Sign Reading Time Taken Comments Blood Pressure 118/72 03/09/2024 1:32 PM EDT Pulse 74 03/09/2024 1:32 PM EDT Temperature 36.7 ??C (98.1 ??F) 09/01/2021 2:31 PM ES T Respiratory Rate - - Oxygen Saturation 98% 03/09/2024 1:32 PM EDT Inhaled Oxygen Concentration - - Weight 79.8 kg (176 lb) 03/09/2024 1:32 PM EDT Height 180.3 cm (5' 11 ) 03/09/2024 1:32 PM EDT Body Mass Index 24.55 03/09/2024 1:32 PM EDT Plan of Treatment Health Maintenance Due Date Last Done Comments Depression Screening 1963 Preventative Health Evaluation 1969 Colon Cancer Screening (Colonoscopy) 1996 Fall Risk Assessment 2016 Shingrix-Zoster Vaccine (2 of 2) 03/30/2019 02/02/2019 DTap / Tdap / Td (2 - Td or Tdap) 11/30/2023 11/29/2013 COVID-19 Vaccine (5 - 2024-25 season) 2024 08/21/2021, 08/17/2021, 11/15/2020, Additional history exists Influenza Vaccine (#1) 2024 , 06/17/2020, 06/24/2019, Additional history exists RSV Adult > 60+ Yrs or (1 - 1-dose 75+ series) 2026 Hepatitis C Screening Completed 02/05/2018 Pneumococcal Vaccine Completed 07/18/2020, 07/26/2016, 06/05/2012 Hepatitis B Vaccines Aged Out No long er eligible based on patient's age to complete this topic RSV Ped < 20 months Aged Out No longe r eligible based on patient's age to complete this topic Care Teams Wing Mailer Machine Operator Relationship Specialty Start Date End Date Robin Snow DO [address] [place] [address] PCP - General Internal Medicine 07/02/23
--- OUTSIDE RECORDS SUMMARY | 2024-11-30 18:29 | XMS_ITS | Data Portability ---
Author Organization [facility], [facility] Address [address] [place] [address] Assessment No assessment recorded. Plan of Treatment Reminders Order Date Submit Date Provider Last Modified By Organization Details Last Modified Time Details Appointments None record ed. Lab None record ed. Referral None record ed. Procedures None record ed. Surgeries None record ed. Imaging None record ed. Medication Orders None record ed. Patient TargetsNo targets recorded. Patient InstructionsNo instructions recorded. Reason for Referral None Reported. Procedures Surgical History Date Name Laterality Status Provider Name and Address Organization Details Recorded Time 7 Demetria - Colonoscopy completed Teodoro Augustin MD [address] [place] [address], [id number] 10/17/2016 09:25:56 Imaging Results None recorded. Procedure Notes None recorded. Medical Equipment None Reported. Vitals None Recorded Social History None recorded. Functional Status None recorded. Mental Status None recorded. Family History Nothing Reported. Medical History No medical history recorded. Past Encounters Encounter ID Performer Location Encounter Start Date Encounter Closed Date Diagnosis/Indication Diagnosis SNOMED-CT Code Diagnosis ICD10 Code Diagnosis Note [id number] Teodoro Augustin MD [facility], [address] [address] 10/17/2016 08:17:23 10/17/2016 13:57:30 Health Concerns Section Related Observation LastModified by Organization Detai ls LastModified Time None Recorded Concern Status LastModified by Organization Details LastModified Time None Recorded Advance Directives Directive None Recorded Payers Encounter Date Sequence Insurance Name Policy Number Policy Echols Covered Member ID Echols Member ID Guarantor Name 10/17/2016 2 [facility] - [facility] [id number] Ralph Velásquez [id number] Ralph Velásquez 10/17/2016 1 [place]: [employer] Ralph Velásquez [id number] Ralph Velásquez
[2024-11-30 18:30] LABS: Vitamin B12 > 2000 pg/mL (200-900)
--- OUTSIDE RECORDS SUMMARY | 2024-11-30 18:30 | XMS_ITS | Data Portability ---
Author Organization [facility], Home Service Address [address] [facility] [place] [address] Assessment Encounter Date Assessment Date Assessment LastModified by Organization Details LastModified Time 11/15/2023 11/15/2023 [id number] [place] [id number] (CILNICAL SCIENTIST) MDM MODERATE MUST MEET 2 OUT OF 3 ELEMENTS: PROBLEMS, DATA OR RISK ELEMENT 1: PROBLEMS ADDRESSED 1 OR MORE CHRONIC ILLNESS WITH EXACERBATION OR 2 OR MORE STABLE CHRONIC ILLNESSES OR 1 UNDIAGNOSED NEW PROBLEM OR 1 ACUTE ILLNESS W/SYMPTOMS OR 1 ACUTE COMPLICATED INJURY ELEMENT 2: DATA MUST MEET 1 OF 3 CATEGORIES CATEGORY 1: REVIEW OF PRIOR EXTERNAL NOTES, REVIEW OF RESULTS, ORDERING OF EACH TEST, ASSESSMENT REQUIRING INDEPENDENT HISTORIAN OR CATEGORY 2: INDEPENDENT INTERPRETATION OF TESTS BY ANOTHER PHYSICIAN OR SPECIALIST OR CATEGORY 3: DISCUSSION OF MGT OR TEST INTERPRETATION W/EXTERNAL PHYSICIAN OR SPECIALIST ELEMENT 3: RISK RISK OF COMPLICATIONS AND/OR MORBIDITY OR MORTALITY OF PATIENT MANAGEMENT PROVIDER MUST THOROUGHLY DOCUMENT EACH ELEMENT THAT IS COVERED Not available 11/15/2023 15:29:05 01/10/2024 01/10/2024 [id number] [place] [id number] (CILNICAL SCIENTIST) MDM HIGH MUST MEET 2 OUT OF [...] THOROUGHLY DOCUMENT EACH ELEMENT THAT IS COVERED Not available 01/10/2024 15:37:07 11/24/2024 11/24/2024 Patient agreed and verbally consents to this audio and video Telehealth appt via a secure platform [email or web address] Not available 11/24/2024 15:31:14 11/30/2024 11/30/2024 [address] [place] [address] (CILNICAL SCIENTIST) MDM HIGH MUST MEET 2 OUT OF [...] Last Modified Time Details Appointments FOLLOW UP 15 2024 04:15P M DR ABBOTT Not available Not available Not available FOLLOW UP 15 2024 11:45A M HARIKA RAY Not available Not available Not available Lab lipid panel, serum 2023 024 [facility], [address] [facility], [place], [address], 04/14/2024 11:08:08 CK (creatine kinase), total, serum 2023 024 [facility], [facility], [place], [address], 01/10/2024 15:44:03 erythrocy te sedimenta tion rate by zia n method 2023 024 [facility], [address] [place] [address], [address], 01/10/2024 15:44:03 aldolase, serum 2023 024 [facility], [address] [place] [address], [address], 01/15/2024 11:06:37 C reactive protein, QN, serum or plasma 2023 024 [facility], [address] [place] [address], [address], 01/10/2024 15:44:03 CMP, serum or plasma 2023 024 [facility], [address] [place] [address], [address], 01/10/2024 15:26:00 CMP, serum or plasma 2023 024 [facility], [address] [place] [address], [place], [address], 01/13/2024 11:07:26 Referral home health referral 2024 025 [facility] - Active Patient Orders Only, [address], [place], [address], 11/25/2024 09:22:41 physical therapist referral - please provide instructi on on cervial traction 2023 024 [facility], [address], [place], [address], 04/22/2024 09:04:54 Procedures None recorded. Surgeries None recorded. Imaging CT, abdomen, w/ contrast 2024 025 [facility], [address] [place], [address], 11/30/2024 16:56:04 US, abdomen, complete 2023 024 [email or web address] Not available 11/18/2023 08:42:03 RF, upper gastroint estinal tract, w/ contrast PO 2023 024 hrubner Not available 11/19/2023 14:21:55 Medication Orders pantopraz ole 40 mg tablet,de layed release 2024 025 [facility], [address] [place] [address], [address], 11/24/2024 15:31:21 famotidin e 40 mg tablet 2024 025 [facility], [address] [place] [address], [address], 11/24/2024 15:31:20 sucralfat e 1 gram tablet 2024 025 [facility], [address] [place] [address], [address], 11/24/2024 15:31:21 butalbita l-acetami nophen-ca ffeine 50 mg-325 mg-40 mg tablet 2023 024 [facility], [address] [place] [address], [address], 04/14/2024 11:53:32 minoxidil 2.5 mg tablet 2023 024 [facility], [address] [place] [address], [address], 01/10/2024 15:38:06 Propecia 1 mg tablet 2023 024 [facility]044[facility], [address] [place] [address], [address], 01/11/2024 22:49:40 diazepam 5 mg tablet 2023 024 JOSE ALEJANDRO [facility], [address] [place], [address], 01/10/2024 15:38:07 ezetimibe 10 mg tablet 2023 024 jbigda [facility], [address] [place], [address], 01/17/2024 09:58:37 Patient TargetsNo targets recorded. Patient Instructions Encounter Date Encounter Id Patient Instructions Last Modified By Organization Details Last Modified Time 01/10/2024 [id number] irritable bowel syndrome: care instructions [place] [id number] Not available 01/10/2024 15:21:11 high cholesterol : care instructions [place] [id number] Not available 01/10/2024 15:21:11 04/14/2024 [id number] headache: care instructions [place] [id number] Not available 04/14/2024 11:50:34 Reason for Referral Physical Therapist Referral for Cervico-occipital neuralgia please provide instruction on cervial traction Referring Physician: Robin Abbott, Internal Medicine, Encounter Date: 04/14/2024 Home Health Referral for Fev er has vna through [facility] ortho, needs BW done as he is having a fever after knee replacement Referring Physician: Danitza Briscoe, Internal Medicine, Encounter Date: 11/24/2024 Results Created Date Observation Date Name Description Value Unit Range Abnormal Flag Note LastModifiedBy Organization Detail LastModifiedTime 11/22/1911/21/2023 US, abdom en, compl ete No observ ation record ed. [facility] [address] [place] [address], [address], 11/23/2023 07:50:15 11/29/1911/29/2023 RF, upper gastr ointe lila l tract , w/ contr ast PO No observ ation record ed. [address], [address], 12/01/2023 23:26:07 03/26/20 24 03/26/2024 XR, chest , 2 view No observ ation record ed. [facility] ( [facility]) [address] [facility] [place], [address], 03/26/2024 19:52:27 Result Notes None recorded. Problems Name Problem SNOMED Code Status Onset Date Resolution Date Notes Provider Name and Address Organization Details Recorded Time Headache 47920439 Active 2022 Jennifer galeas [facility] 3 09:01:52 Cervical facet joint pain 304951953 Active 2022 Jennifer galeas [facility] 3 09:02:02 Hyperlipi demia 71458427 Active 2022 Jennifer galeas [facility] 3 09:02:14 Fibromyal parisa 761913845 Active 2022 Jennifer galeas [facility] 3 09:02:19 Insomnia 274697960 Active 2022 Jennifer galeas [facility] 3 09:02:24 Prediabet es 248339406 Active 2022 Jennifer galeas [facility] 3 09:02:30 Abdominal bloating 681452523 Active 2022 Jennifer galeas [facility] 3 09:02:38 Irritable bowel syndrome 59784776 Active 2022 Jennifer galeas [facility] 3 09:02:42 Abdominal aortic atheroscl erosis 368507185 Active 2022 Jennifer galeas [facility] 3 09:02:52 Erectile dysfuncti on 103009460 Active 2022 Jennifer galeas [facility] 3 09:03:02 Cielo thyroidit is 83747963 Active 2022 Jennifer galeas [facility] 3 09:03:12 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 280313937849 109 Active 2022 Jenniferjess Tellez null, [facility] 3 09:03:24 Family history of polyp of colon 044072461 Active 2022 Jennifer Tellez null, [facility] 3 09:10:53 Family history of diabetes mellitus 822878013 Active 2022 Jenniferjess Tellez null, [facility] 3 09:11:01 Family history of malignant neoplasm of prostate 394465547 Active 2022 Jenniferjess Tellez null, [facility] 3 09:11:10 Lumbar spondylos is 784369971 Active 2022 Robin Abbott, [address] [place] [address], [address], [facility] 3 14:52:09 Acute sinusitis 43354236 Active 2022 Robin Abbott DO [address] [place] [address], [address], [facility] 3 14:16:15 Cervico-o ccipital neuralgia 82578438 Active 2022 HARIKA RAY [address] [place] [address], [address], [facility] [place] 3 16:27:39 Vitamin D deficienc y 09492885 Active 2022 Robin Abbott DO [address] [place] [address], [address], [facility] [place] 3 11:14:40 Osteoarth ritis 710141197 Active 2022 HARIKA RAY [address] [place] [address], [address], [facility] [place] 3 13:27:19 Diverticu losis of colon 454976470 Active 2023 Robin Abbott DO [address] [place] [address], [address], [facility] [place] 4 11:47:44 Epigastri c pain 57690942 Active 2023 Robin Abbott DO [address] [place] [address], [address], [facility] [place] 4 15:29:23 Hiatal hernia with gastroeso phageal reflux 876947784 Active 2023 HARIKA RAY [address] [place] [address], [address], [facility] [place] 4 13:59:50 Male pattern alopecia 98670893 Active 2023 Robin Abbott [address], [address], [facility] 4 15:28:02 Myalgia caused by statin 274194369470 89849 Active 2023 Robin Abbott DO [address] [place] [address], [address], [facility] [place] 4 15:34:34 Cough 67216855 Active 2023 Robin Abbott DO [address] [place] [address], [address], [facility] 4 13:31:04 Gastritis 2361347 Active 2024 HARIKA RAY [address] [place] [address], [address], [facility] [place] 5 15:20:34 Fever 170540217 Active 2024 HARIKA RAY [address] [place] [address], [address], [facility] [place] 5 15:33:01 Anemia 432194740 Active 2024 Robin Abbott DO [address] [place] [address], [address], [facility] [place] 5 08:07:11 Problem Notes None recorded. Procedures Surgical History None recorded. Imaging Results Imaging Date Name Status LastModified by Organization Details LastModified Time 11/21/2023 US, abdomen, complete completed [facility] [address] [place] [address], [address], 11/23/2023 07:50:15 11/29/2023 RF, upper gastrointestinal tract, w/ contrast PO completed [facility] [address] [place], [address], 12/01/2023 23:26:07 03/26/2024 XR, chest, 2 view completed [facility] ( [facility]) [address] [place], [address], 03/26/2024 19:52:27 Procedure Notes None recorded. Medical Equipment None Reported. Allergies Allergen ID Allergen Name Allergen Category Reaction Reaction Severity Criticality Documentation Date Start Date Code Code System Note Provider Name and Address Organization Details Recorded Time 6328 cephalexi n medicatio n Not available Not available Not available 09/18/2022 2231 RxNorm Jennifer galeas [facility] 3 09:01:36 6329 pravastat in medicatio n Not available Not available Not available 09/18/2022 78207 RxNorm Jennifer galeas [facility] 3 09:01:42 6330 Bactrim medicatio n Not available Not available Not available 09/18/2022 29409 9 RxNorm Jennifer galeas [facility] 3 09:01:46 6988 oxycodone medicatio n Not available Not available Not available 02/18/2023 7804 RxNorm GI upset Rony galeas [facility] 4 15:03:17 Medications Name Sig Start Date [...] BY MOUTH EVERY DAY FOR 7 DAYS 04/14 completed Not Available Not Available Not Available [...] and Address Organization Details Last Updated DateTime 4 182.88 cm 24.8 kg/m2 56530.4 g 73 /min 98 % 98 % 120 mm[Hg] 70 mm[Hg] [facility] 4 14:38:21 Date Recorded Body height Body mass index (BMI) Body weight Heart rate Respiratory rate Oxygen saturation Oxygen saturation in Arterial blood by Pulse oximetry Systolic blood pressure Diastolic blood pressure Provider Name and Address Organization Details Last Updated DateTime 4 182.88 cm 24.9 kg/m2 39359.8 4 g 68 /min 16 /min 98 % 98 % 122 mm[Hg] 82 mm[Hg] Rony Sandoval [facility] 4 15:02:54 Date Recorded Body height Body mass index (BMI) Body weight Heart rate Oxygen saturation Oxygen saturation in Arterial blood by Pulse oximetry Systolic blood pressure Diastolic blood pressure Provider Name and Address Organization Details Last Updated DateTime 4 179.07 cm 25.1 kg/m2 04497.2 1 g 74 /min 98 % 98 % 134 mm[Hg] 80 mm[Hg] Rony aSndoval [facility] 4 11:11:07 Date Recorded Body height Body mass index (BMI) Body weight Heart rate Oxygen saturation Oxygen saturation in Arterial blood by Pulse oximetry Systolic blood pressure Diastolic blood pressure Provider Name and Address Organization Details Last Updated DateTime 5 179.07 cm 25 kg/m2 37276.8 5 g 99 /min 98 % 98 % 140 mm[Hg] 60 mm[Hg] Krupa Cobb [facility] 5 16:16:42 Social History Question Answer Notes LastModified by Organizat ion Details LastModified Time Tobacco Smoking Status Former Smoker Robin Abbott DO [address] [place] [address], [address] 09/19/2022 14:19:29 What Was The [...] SNOMED-CT Code Diagnosis ICD10 Code Diagnosis Note [id number] Robin Abbott DO [facility] [address] [facility] [address] [address] 09/19/2022 14:01:07 09/19/2022 15:12:55 Irritable bowel syndrome 87652941 K58.9 using diazepam Cervical f acet joint pain 607009012 M54.2 sees [facility] specialist for injections Prediabetes 769354250 R7 3.03 will need labwork Cielo thyroiditis 21 318057 E06.3 will need tsh Hyperlipidemia 58147496 E78.5 will need to rechk [id number] Robin Abbott [facility] [address] [facility] [facility] [place] [address] 11/26/2022 14:41:03 11/26/2022 15:15:18 Prediabetes 774345927 R73.03 doing great no DM< a1c is 5.9 Insomnia 627001829 G47.0 0 [place] [id number] Robin Abbott [facility] [address] [facility] [facility] [place] [address] 04/09/2023 10:30:35 04/09/2023 11:25:09 Active or passive immunization 822462578 Z23 Adult heal th examination 218465091 Z00.00 Lumbar spondylosis 23271 0009 M47.896 stabke radha navarrete is his neck Cielo thyroiditis 21 818080 E06.3 will need tsh Hyperlipidemia 20716750 E78.5 will need to rechk Vitamin D deficiency 347 81619 E55.9 Cervico-oc cipital neuralgia 70810225 M54.81 [id number] Robin Abbott [facility] [address] [facility] [address] 10/25/2023 11:09:46 10/25/2023 15:09:21 Irritable bowel syndrome 75577090 K58.9 bentyl unhelpful we will try donnatol Diverticul osis of colon 333932859 K57.30 we will consider treating this if above unhelpful [id number] Robin Abbott [facility] [address] [facility] [address],[place] [address] 11/15/2023 14:32:43 11/15/2023 15:39:21 Irritable bowel syndrome 42932581 K58.9 bentyl unhelpful we will try donnatol Epigastric pain 98196528 R10.13 stop atorvastat in stop oxycodstop pepcid use omeprazole [id number] Robin Abbott DO [facility] [address] [facility],[place] [address] 01/10/2024 14:50:25 01/10/2024 15:57:54 Irritable bowel syndrome 20517206 K58.9 this was the rosuvastat in Epigastric pain 10608067 R10.13 stop atorvastat in stop oxycodstop pepcid use omeprazole Hiatal her karley with gastroesophageal reflux 743736602 K21.9 discussed re scalp hair look Depression screening 171 031672 Z13.31 neg;;;; Hyperlipidemia 07218986 E78.5 will need to rechk Lumbar spondylosis 86416 0009 M47.896 stabke radha navarrete is his neck Male pattern alopecia 87 260464 L64.9 Myalgia ca used by statin 8082404965 7496069 T46.6X5D will need to order lab [id number] Robin Abbott DO [facility] [address] [facility] [address] 04/14/2024 11:00:13 04/14/2024 11:59:03 Active or passive immunization 704769058 Z23 utd Adult heal th examination 340500829 Z00.01 as noted he will call the [facility] Depression screening 171 508451 Z13.31 neg;;;; Hiatal her karley with gastroesophageal reflux 124214608 K21.9 discussed re scalp hair look Headache 66912270 R51.9 has been stable for the most part but cant get Epigastric pain 31650932 R10.13 recent worseningu se omeprazole and can increase to bid for 10 days and see if this exacerbati on feels better Cervico-oc cipital neuralgia 20628614 M54.81 [id number] HARIKA RAY [facility] [address] [facility] [address],[place] [address] 11/24/2024 13:59:01 11/24/2024 15:54:27 Gastritis 1120141 K29.00 will switch up his medication Fever 601339251 R50.9 will send referral for nurse consult Hiatal her karley with gastroesophageal reflux 589367314 K21.9 meds adjusted [id number] Robin Abbott, [facility] [address] [facility],[place] [address] 11/30/2024 16:03:15 11/30/2024 16:56:28 Abdominal bloating 353695062 R14.0 see below Diverticul osis of colon 063039960 K57.30 we will consider treating this if above unhelpful Epigastric pain 02432838 R10.13 long detailed discussion we will eliminate ALL the otc and rx pain meds this is a must as otc nsaid gastritis is a real possibilit yalso will have him stop the repatha (having a lot of URI and laryngeal mucous) Hyperlipidemia 63035018 E78.5 will need to rechk Anemia 074838124 D64.9 will rechk Depression screening 171 061324 Z13.31 neg;;;; Health Concerns Section Related Observation LastModified by Organization Detai ls LastModified Time None Recorded Concern Status LastModified by Organization Details LastModified Time None Recorded Advance Directives Directive None Recorded Payers Encounter Date Sequence Insurance Name Policy Number Policy Echols Covered Member ID Echols Member ID Guarantor Name 11/15/2023 2 [employer] - SENIOR SERVICES PLAN F (MEDICARE SUPPLEMENT) [id number] Ralph Velásquez [id number] Ralph Masunmaldonado 11/15/2023 1 [place] Ralph Grajeda Phillipjosésobia [id number] Ralph Bielunis 01/10/2024 2 [employer] - SENIOR SERVICES PLAN F (MEDICARE SUPPLEMENT) [id number] Ralph Masunis [id number] Ralph Bielunmaldonado 01/10/2024 1 [place] Ralph Nicci Didier [id number] Ralph Bijoséunmaldonado 04/14/2024 2 [employer] - SENIOR SERVICES PLAN F (MEDICARE SUPPLEMENT) [id number] Ralph Velásquez [id number] Ralph Masunis 04/14/2024 1 [place] Ralph Velásquez [id number] Ralph Bielunis 11/24/2024 2 [employer] - SENIOR SERVICES PLAN F (MEDICARE SUPPLEMENT) [id number] Ralph Velásquez [id number] Ralph Bijoséunis 11/24/2024 1 [place] Ralph Velásquez [id number] Ralph Bielunis 11/30/2024 2 [employer] - SENIOR SERVICES PLAN F (MEDICARE SUPPLEMENT) [id number] Ralph Velásquez [id number] Ralph Bielunis 11/30/2024 1 [place] [facility] SERVICES Ralph Velásquez [id number] Ralph Velásquez Notes Date Note Type Note Provider Name and Address Organization Details Recorded Time 11/15/19 24 text/htm l having a great deal of discomfortpain is located in the epigastric region also xs gashaving prob with eating a brat diethaving soft bowel movements multiple times in the dayno bleeding no black melena Robin Abbott DO [address] [place], [address], [facility] [place] 11/15/2023 15:33:23 01/10/20 24 text/htm l here for rechk doing ok overallhas recently had major workup and found to have a large hiatal hernianow on omeprazole and is feeling bettervoice is bettersp dx pf hiatal hernia is the answer to hsi sx as he is feeling better rosuvastatin has been bothering his stomach and he is feeling better off the med but hsi cholesterol is up snow that he is off the rosuvastatingiven the class Robin Abbott DO [address] [place], [address], [facility] [place] 01/10/2024 15:39:08 04/14/20 24 text/htm l Annual WellnessReported bypatient.Diet and Nutrition:healthy diet Fracture Risk:no history of fractures; no recent explained fracture; no sudden unexplained fractures; no previous musculoskeletal injuries Physical Activity:exercises on a regular basis; recent increase in physical activity; good physical condition Additional Lifestyle Factors:no tobacco use; no alcohol intake; stopped drinking alcohol Depression Risk:never feels sad, empty, or tearful; no loss of interest in activities; no significant changes in weight; no sleep disturbances or insomnia; no agitation; no loss of energy; no feelings of worthlessness or guilt; no thoughts of suicide; no history of depression; no history of mood disorders Hearing:no loss of hearing Vision:no vision problemsNotes:seems better today having some ongoing epigastric discomfort due to his hiatal hernia and gerdtakes omeprazolehas had headaches but cant take the nsaids due to stomach issue Robin Abbott DO [address] [place], [address], [facility] [place] 04/14/2024 11:53:36 11/25/19 25 text/htm l c/o gastritis The patient is participating in this appointment via telemedicine communication with a phone call/video calling service ([employer])The patient consents to use of these platforms in place of an in-person appointment due to either sick symptoms the patient is presenting with or current office closure due to COVID exposure in order to keep our office staff and patients safe the patient reports the the medication worked out well, felt great, got the surgerynoted that he was started on ASA BID to prevent clot formationthe patient takes it in the AM and in the PM started getting the burning and gastritis symptoms againprobs combo of the surgery, meds he was started on, being flat for as long as the surgery took adjusted his diet, avoid citrus, acid, fatty foods, caffeine and sugar switch out medications and given adjusted doses to start home bound due to knee replacementhas PT/nurse coming, will add to request for CBC blood draw also having low grade fever since his replacementrecommended lab work to check his CBC HARIKA RAY [address] [place], [address], [facility] [place] 11/24/2024 15:41:42 12/01/19 25 text/htm l Abdominal PainReported bypatient.Location:epigastr [...] he took eliquis Robin Abbott, DO [address] [facility], [place], [address], [facility] [place] 11/30/2024 16:56:27
--- OUTSIDE RECORDS SUMMARY | 2024-11-30 18:30 | XMS_ITS | Patient Health Record ---
Author Organization [facility] Address [address] [place] [address] Care Team Providers Care Laborer Name Role Phone Tod Pepper Primary Care Provider Reason For Referral No Information Medications Medication SIG (Take, Route, Frequency, Duration) Notes Start Date End Date Status Ultram ER 100 mg Tablet Sustained Release 24 hr 50 Take 1 tablet by mouth every six hours,prn headache for 0 *please review for potential update for e-prescription and drug interaction check* 05/27/2009 Active Plan Of Treatment No Information Insurance Providers Payer Name Payer Address Payer Phone Subscriber Number Group Number Insured Name Patient Relationship to Insured Coverage Start Date Coverage End Date [place] OF [place]/OUT OF [place]AN [address] [place], [place] [id number] Ralph Velásquez Self - patient is the insured
[2024-11-30 19:07] LABS: Alanine Aminotransferase 15 U/L (0-40); Albumin Level 3.7 g/dL (3.5-5.0); Alkaline Phosphatase 61 U/L (39-117); Anion Gap 12 (12-20); Aspartate Amino Transferase 22 U/L (5-37); Bilirubin Total 0.8 mg/dL (0.0-1.0); Blood Urea Nitrogen 20 mg/dL (9-16); Calcium 9.6 mg/dL (8.4-10.2); Carbon Dioxide 24 mmol/L (22-29); Chloride 105 mmol/L (96-108); Estimated Glomerular Filt Rate 58; Glucose Random 112 mg/dL (60-115); Iron 35 mcg/dL (45-160); Percent Iron Saturation 15 % (15-50); Potassium 4.1 mmol/L (3.3-5.1); Sodium 137 mmol/L (135-145); Total Iron Binding Capacity 234 mcg/dL (228-428); Total Protein 7.1 g/dL (6.5-8.0); Unsaturated Iron Binding 199 ug/dL
[2024-11-30 19:22] LABS: Ferritin 269 ng/mL (20-250)
== END 2024-11-30 15:49 | disposition home or self-care (01) ==
LOC: HO.MANLDS 15:48
PROVIDERS: Visit Provider Internal Medicine
DX: D64.9 Anemia, unspecified (principal)
CPT/HCPCS: 36415; 80053; 82607; 82728; 83540; 85025

== ENCOUNTER 2024-12-10 | Outpatient (REF) | payer MEDICARE, OTHER, SELFPAY ==
--- OUTSIDE RECORDS SUMMARY | 2024-12-15 14:54 | XMS_ITS | Clinical Summary ---
Author Organization [facility] Address [address] [place] [address] Care Team Providers Care Sales Program Coordinator Name Role Phone Robin Snow DO Primary Care Provider [phone] Allergies Active Allergy Reactions Criticality Noted Date [...] Office Visit [facility] [address] [place] [address] Brit Ivey PA Rectal bleeding [...] Recently Relevant to Health Maintenance Insurance MEDICARE [facility] Care Teams Sales Program Coordinator Relationship Specialty Start Date End Date Robin Snow DO [address] [facility] [address] [place], [place] PCP - General 07/02/23
--- OUTSIDE RECORDS SUMMARY | 2024-12-15 14:54 | XMS_ITS | Clinical Summary ---
Author Organization [facility] Address [address] [place] [address] Care Team Providers Care Lock And Dam Operator Name Role Phone Gil Pridelon Primary Care [...] this topic Zoster (Zostavax) Discontinued Care Teams Lock And Dam Operator Relationship Specialty Start Date End Date Gil Pride PCP - General 04/01/23
--- OUTSIDE RECORDS SUMMARY | 2024-12-15 14:54 | XMS_ITS | Data Portability ---
Author Organization [facility] Address [address] [place] [address] Assessment Encounter Date Assessment Date Assessment LastModified by Organization Details LastModified Time 11/15/2023 11/15/2023 [address] [place] [address] (DUCT CLEANER) MDM MODERATE MUST MEET 2 OUT OF [...] COVERED Not available 11/15/2023 15:29:05 01/10/2024 01/10/2024 [address] [place] [address] (DUCT CLEANER) MDM HIGH MUST MEET 2 OUT OF [...] [email or web address] Not available 11/24/2024 15:31:14 11/30/2024 11/30/2024 [address] [place] [address] (DUCT CLEANER) MDM HIGH MUST MEET 2 OUT OF [...] Time Details Appointments FOLLOW UP 15 2024 11:45A M HARIKA RAY Not available Not available Not available Lab lipid panel, serum 2023 024 [facility], [address] [place] [address], [place], [address], 04/14/2024 11:08:08 CK (creatine kinase), total, serum 2023 024 [facility], [address] [place] [address], [place], [address], 01/10/2024 15:44:03 erythrocy te sedimenta tion rate by zia cuellar 2023 024 [facility], [address] [place] [address], [place], [address], 01/10/2024 15:44:03 aldolase, serum 2023 024 [facility], [address] [place] [address], [address], 01/15/2024 11:06:37 C reactive protein, QN, serum or plasma 2023 024 [facility], [address] [place] [address], [address], 01/10/2024 15:44:03 CMP, serum or plasma 2023 024 [facility], [address] [place] [address], [address], 01/10/2024 15:26:00 CMP, serum or plasma 2023 024 [facility], [address] [place] [address], [address], 01/13/2024 11:07:26 Referral home health referral 2024 025 [facility] - Active Patient Orders Only, [address], [place], [address], 11/25/2024 09:22:41 physical therapist referral - please provide instructi on on cervial traction 2023 024 [facility], [address], [place], [address], 04/22/2024 09:04:54 Procedures None recorded. Surgeries None recorded. Imaging CT, abdomen, w/ contrast 2024 025 [facility], [address], [place], [address], 12/01/2024 09:20:29 US, abdomen, complete 2023 024 [email or web address] Not available 11/18/2023 08:42:03 RF, upper gastroint estinal tract, w/ contrast PO 2023 024 hrubner Not available 11/19/2023 14:21:55 Medication Orders pantopraz ole 40 mg tablet,de layed release 2024 025 [id number], [address] [place] [address], [address], 11/24/2024 15:31:21 famotidin e 40 mg tablet 2024 025 [facility], [address] [place] [address], [address], 11/24/2024 15:31:20 sucralfat e 1 gram tablet 2024 025 [facility], [address] [place] [address], [address], 11/24/2024 15:31:21 butalbita l-acetami nophen-ca ffeine 50 mg-325 mg-40 mg tablet 2023 024 [facility], [address] [place] [address], [address], 04/14/2024 11:53:32 minoxidil 2.5 mg tablet 2023 024 [facility], [address] [place] [address], [address], 01/10/2024 15:38:06 Propecia 1 mg tablet 2023 024 [facility], [address] [place] [address], [address], 01/11/2024 22:49:40 diazepam 5 mg tablet 2023 024 [facility], [address] [place], [address], 01/10/2024 15:38:07 ezetimibe 10 mg tablet 2023 024 [email or web address], [address] [place], [address], 01/17/2024 09:58:37 Patient TargetsNo targets recorded. Patient Instructions Encounter Date Encounter Id Patient Instructions Last Modified By Organization Details Last Modified Time 01/10/2024 [id number] irritable bowel syndrome: care instructions [place] [address] Not available 01/10/2024 15:21:11 high cholesterol : care instructions [place] [address] Not available 01/10/2024 15:21:11 04/14/2024 [id number] headache: care instructions [place] [address] Not available 04/14/2024 11:50:34 Reason for Referral Physical Therapist Referral for Cervico-occipital neuralgia please provide instruction on cervial traction Referring Physician: Robin Snow, Internal Medicine, Encounter Date: 04/14/2024 Home Health Referral for Fev er has vna through [facility], needs BW done as he is having a fever after knee replacement Referring Physician: Danitza Briscoe, Internal Medicine, Encounter Date: 11/24/2024 Results Created Date Observation Date Name Description Value Unit Range Abnormal Flag Note LastModifiedBy Organization Detail LastModifiedTime 11/22/19 24 11/21/2023 US, abdom en, compl ete No observ ation record ed. [facility] [address] [place] [address], [address], 11/23/2023 07:50:15 11/29/19 24 11/29/2023 RF, upper gastr ointe lila l tract , w/ contr ast PO No observ ation record ed. [address], [address], 12/01/2023 23:26:07 03/26/20 24 03/26/2024 XR, chest , 2 view No observ ation record ed. [facility] ( [facility]) [address] [facility] [place], [address], 03/26/2024 19:52:27 12/11/19 25 12/08/2024 CT, abdom en, w/ contr ast No observ ation record ed. [address], [address], 12/10/2024 15:49:20 Result Notes None recorded. Problems Name Problem SNOMED Code Status Onset Date Resolution Date Notes Provider Name and Address Organization Details Recorded Time Headache 49814167 Active 2022 Jennifer galeas [facility] 3 09:01:52 Cervical facet joint pain 487966910 Active 2022 Jennifer galeas [facility] 3 09:02:02 Hyperlipi demia 35747235 Active 2022 Jennifer galeas [facility] 3 09:02:14 Fibromyal parisa 273439757 Active 2022 Jennifer galeas [facility] 3 09:02:19 Insomnia 158774787 Active 2022 Jennifer galeas [facility] 3 09:02:24 Prediabet es 727346171 Active 2022 Jennifer galeas [facility] 3 09:02:30 Abdominal bloating 537093451 Active 2022 Jennifer galeas [facility] 3 09:02:38 Irritable bowel syndrome 52143520 Active 2022 Jennifer galeas [facility] 3 09:02:42 Abdominal aortic atheroscl erosis 855721273 Active 2022 Jennifer galeas [facility] 3 09:02:52 Erectile dysfuncti on 129116816 Active [address] [facility] 3 09:03:02 Cielo thyroidit is 00972608 Active 2022 Jenniferjess Tellez null, [facility] 3 09:03:12 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 713741467293 109 Active 2022 Jennifer Tellez null, [facility] 3 09:03:24 Family history of polyp of colon 992823343 Active 2022 Jenniferjess Tellez null, [facility] 3 09:10:53 Family history of diabetes mellitus 903220374 Active 2022 Jenniferjess Tellez null, [facility] 3 09:11:01 Family history of malignant neoplasm of prostate 322732737 Active 2022 Jenniferjess Tellez null, [facility] 3 09:11:10 Lumbar spondylos is 574876306 Active 2022 Robin Snow DO [address] [place] [address], [address], [facility] 3 14:52:09 Acute sinusitis 19860395 Active 2022 Robin Snow DO [address] [place] [address], [address], [facility] 3 14:16:15 Cervico-o ccipital neuralgia 47949570 Active 2022 HARIKA RAY [address] [place] [address], [address], [facility] [place] 3 16:27:39 Vitamin D deficienc y 07883983 Active 2022 Robin Snow DO [address] [place] [address], [address], [facility] [place] 3 11:14:40 Osteoarth ritis 797862576 Active 2022 HARIKA RAY [address] [place] [address], [address], [facility] [place] 3 13:27:19 Diverticu losis of colon 626816630 Active 2023 Robin Snow, DO [address] [place] [address], [address], [facility] [place] 4 11:47:44 Epigastri c pain 32283845 Active 2023 Robin Snow, DO [address] [place] [address], [address], [facility] [place] 4 15:29:23 Hiatal hernia with gastroeso phageal reflux 802743466 Active 2023 HARIKA RAY [address] [place] [address], [address], [facility] [place] 4 13:59:50 Male pattern alopecia 84886629 Active 2023 Robin Snow DO [address] [place] [address], [address], [facility] [place] 4 15:28:02 Myalgia caused by statin 418954583457 01064 Active 2023 Robin Snow, DO [address] [place] [address], [address], [facility] [place] 4 15:34:34 Cough 34807531 Active 2023 Robin Snow DO [address] [place] [address], [address], [facility] [place] 4 13:31:04 Gastritis 3947911 Active 2024 HARIKA RAY [address] [place] [address], [address], [facility] [place] 5 15:20:34 Fever 591463373 Active 2024 HARIKA RAY [address] [place] [address], [address], [facility] [place] 5 15:33:01 Anemia 072012513 Active 2024 Robin Snow DO [address] [place] [address], [address], [facility] [place] 5 08:07:11 Problem Notes None recorded. Procedures Surgical History None recorded. Imaging Results Imaging Date Name Status LastModified by Organization Details LastModified Time 11/21/2023 US, abdomen, complete completed [address] [facility] [address] [place] [address], [address], 11/23/2023 07:50:15 11/29/2023 RF, upper gastrointestinal tract, w/ contrast PO completed [address], [address], 12/01/2023 23:26:07 03/26/2024 XR, chest, 2 view completed [address] [facility] ( [facility]) [address] [facility] [place], [address], 03/26/2024 19:52:27 12/08/2024 CT, abdomen, w/ contrast completed [address], [address], 12/10/2024 15:49:20 Procedure Notes None recorded. Medical Equipment None Reported. Allergies Allergen ID Allergen Name Allergen Category Reaction Reaction Severity Criticality Documentation Date Start Date Code Code System Note Provider Name and Address Organization Details Recorded Time 6328 cephalexi n medicatio n Not available Not available Not available 09/18/2022 2231 RxNorm Jennifer galeas [facility] 3 09:01:36 6329 pravastat in medicatio n Not available Not available Not available 09/18/2022 75091 RxNorm Jennifer galeas [facility] 3 09:01:42 6330 Bactrim medicatio n Not available Not available Not available 09/18/2022 38817 9 RxNorm Jennifer [facility]aleas [facility] 3 09:01:46 6988 oxycodone medicatio n Not available Not available Not available 02/18/2023 7804 RxNorm GI patricio galeas [place] [facility] 15:03:17 Medications Name Sig Start Date Stop [...] completed Not Available Not Available Not Available fondaparinu x 2.5 mg/0.5 mL subcutaneou s solution syringe INJECT 0.5 ML (2.5 MG TOTAL) UNDER THE SKIN DAILY FOR 9 DAYS. active Not Available Not Available No t Available minoxidil 2.5 mg tablet TAKE 2 [...] completed Not Available Not Available Not Available enoxaparin 40 mg/0.4 mL subcutaneou s syringe INJECT 0.4 ML (40 MG TOTAL) UNDER THE SKIN DAILY FOR 12 DAYS. active Not Available Not Available No t Available ezetimibe 10 mg tablet TAKE 1 [...] Updated DateTime 4 182.88 cm 24.8 kg/m2 78712.4 g 73 /min 98 % 98 % 120 mm[Hg] 70 mm[Hg] Krupa Cobb [facility] 4 14:38:21 Date Recorded Body height Body mass index (BMI) Body weight Heart rate Respiratory rate Oxygen saturation Oxygen saturation in Arterial blood by Pulse oximetry Systolic blood pressure Diastolic blood pressure Provider Name and Address Organization Details Last Updated DateTime 4 182.88 cm 24.9 kg/m2 29623.8 4 g 68 /min 16 /min 98 % 98 % 122 mm[Hg] 82 mm[Hg] Rony Sandoval [facility] 4 15:02:54 Date Recorded Body height Body mass index (BMI) Body weight Heart rate Oxygen saturation Oxygen saturation in Arterial blood by Pulse oximetry Systolic blood pressure Diastolic blood pressure Provider Name and Address Organization Details Last Updated DateTime 4 179.07 cm 25.1 kg/m2 17110.2 1 g 74 /min 98 % 98 % 134 mm[Hg] 80 mm[Hg] Rony Sandoval [facility] 4 11:11:07 Date Recorded Body height Body mass index (BMI) Body weight Heart rate Oxygen saturation Oxygen saturation in Arterial blood by Pulse oximetry Systolic blood pressure Diastolic blood pressure Provider Name and Address Organization Details Last Updated DateTime 5 179.07 cm 25 kg/m2 71330.8 5 g 99 /min 98 % 98 % 140 mm[Hg] 60 mm[Hg] Krupa Cobb [facility] 5 16:16:42 Social History Question Answer Notes LastModified by Organizat ion Details LastModified Time Tobacco Smoking Status Former Smoker Robin Snow DO [address] [place] [address], [address], [facility] [place] 09/19/2022 [...] SNOMED-CT Code Diagnosis ICD10 Code Diagnosis Note [id number] Robin Snow DO [facility] [address] [place] [address] 09/19/2022 14:01:07 09/19/2022 15:12:55 Irritable bowel syndrome 98922962 K58.9 using diazepam Cervical f acet joint pain 963768105 M54.2 [facility] for injections Prediabetes 573630846 R7 3.03 will need labwork Cielo thyroiditis 21 707787 E06.3 will need tsh Hyperlipidemia 60770437 E78.5 will need to rechk [id number] Robin Snow DO [facility] [address] [facility],[place] [address] 11/26/2022 14:41:03 11/26/2022 15:15:18 Prediabetes 056897914 R73.03 doing great no DM< a1c is 5.9 Insomnia 594931663 G47.0 0 [place] [id number] Robin Snow DO [facility] [address] [place] [address] 04/09/2023 10:30:35 04/09/2023 11:25:09 Active or passive immunization 462125181 Z23 Adult heal th examination 923404394 Z00.00 Lumbar spondylosis 45888 0009 M47.896 stabke big prob is his neck Cielo thyroiditis 21 646594 E06.3 will need tsh Hyperlipidemia 18387521 E78.5 will need to rechk Vitamin D deficiency 347 08290 E55.9 Cervico-oc cipital neuralgia 68753116 M54.81 [id number] Robin Snow [facility] [address] [facility],[place] [address] 10/25/2023 11:09:46 10/25/2023 15:09:21 Irritable bowel syndrome 16310112 K58.9 bentyl unhelpful we will try donnatol Diverticul osis of colon 729332864 K57.30 we will consider treating this if above unhelpful [id number] Robin Snow [facility] [address] [facility],[place] [address] 11/15/2023 14:32:43 11/15/2023 15:39:21 Irritable bowel syndrome 34972686 K58.9 bentyl unhelpful we will try donnatol Epigastric pain 07132477 R10.13 stop atorvastat in stop oxycodstop pepcid use omeprazole [id number] Robin Snow [facility] [address] [facility],[place] [address] 01/10/2024 14:50:25 01/10/2024 15:57:54 Irritable bowel syndrome 22550464 K58.9 this was the rosuvastat in Epigastric pain 64736563 R10.13 stop atorvastat in stop oxycodstop pepcid use omeprazole Hiatal her karley with gastroesophageal reflux 272279414 K21.9 discussed re scalp hair look Depression screening 171 697481 Z13.31 neg;;;; Hyperlipidemia 41911320 E78.5 will need to rechk Lumbar spondylosis 89233 0009 M47.896 annalee navarrete is his neck Male pattern alopecia 87 465797 L64.9 Myalgia ca used by statin 4190424564 5856575 T46.6X5D will need to order lab [id number] Robin Snow [facility] [address] [place] [address] 04/14/2024 11:00:13 04/14/2024 11:59:03 Active or passive immunization 782778888 Z23 utd Adult heal th examination 758579293 Z00.01 as noted he will call the [facility] Depression screening 171 851943 Z13.31 neg;;;; Hiatal her karley with gastroesophageal reflux 465873637 K21.9 discussed re scalp hair look Headache 58168945 R51.9 has been stable for the most part but cant get Epigastric pain 16345705 R10.13 recent worseningu se omeprazole and can increase to bid for 10 days and see if this exacerbati on feels better Cervico-oc cipital neuralgia 41822107 M54.81 [id number] HARIKA RAY [facility] [address] [place] [address] 11/24/2024 13:59:01 11/24/2024 15:54:27 Gastritis 5083362 K29.00 will switch up his medication Fever 437580367 R50.9 will send referral for nurse consult Hiatal her karley with gastroesophageal reflux 980047506 K21.9 meds adjusted [id number] Robin Snow DO [facility] [address] [place] [address] 11/30/2024 16:03:15 12/01/2024 08:12:54 Abdominal bloating 970312027 R14.0 see below Diverticul osis of colon 094920831 K57.30 we will consider treating this if above unhelpful Epigastric pain 09891122 R10.13 long detailed discussion we will eliminate ALL the otc and rx pain meds this is a must as otc nsaid gastritis is a real possibilit yalso will have him stop the repatha (having a lot of URI and laryngeal mucous) Hyperlipidemia 51481106 E78.5 will need to rechk Anemia 589428995 D64.9 will rechk Depression screening 171 602537 Z13.31 neg;;;; Health Concerns Section Related Observation LastModified by Organization Detai ls LastModified Time None Recorded Concern Status LastModified by Organization Details LastModified Time None Recorded Advance Directives Directive None Recorded Payers Encounter Date Sequence Insurance Name Policy Number Policy Echols Covered Member ID Echols Member ID Guarantor Name 11/15/2023 2 [employer] - SENIOR SERVICES PLAN F (MEDICARE SUPPLEMENT) [id number] Ralph Bielunis [id number] Ralph Bielunis 11/15/2023 1 [place] Ralph Nicci Bielunis [id number] Ralph Bielunis 01/10/2024 2 [employer] - SENIOR SERVICES PLAN F (MEDICARE SUPPLEMENT) [id number] Ralph Bielunis [id number] Ralph Bielunis 01/10/2024 1 [place] Ralph C Bielunis [id number] Ralph Bielunis 04/14/2024 2 [employer] - SENIOR SERVICES PLAN F (MEDICARE SUPPLEMENT) [id number] Ralph Bielunis [id number] Ralph Bielunis 04/14/2024 1 [place] Ralph C Bielunis [id number] Ralph Bielunis 11/24/2024 2 [employer] - SENIOR SERVICES PLAN F (MEDICARE SUPPLEMENT) [id number] Ralph Bielunis [id number] Ralph Bielunis 11/24/2024 1 [place] Ralph C Bielunis [id number] Ralph Bielunis 11/30/2024 2 [employer] - SENIOR SERVICES PLAN F (MEDICARE SUPPLEMENT) [id number] Ralph Bielunis [id number] Ralph Bielunis 11/30/2024 1 [place] Ralph C Bielunis [id number] Ralph Bielunis Notes Date Note Type Note Provider Name and Address Organization Details Recorded Time 11/15/19 24 text/htm l having a great deal of discomfortpain is located in the epigastric region also xs gashaving prob with eating a brat diethaving soft bowel movements multiple times in the dayno bleeding no black melena Robin Snow, DO [address] [facility], [place], [address], [facility] 11/15/2023 15:33:23 05/17/20 24 text/htm l here for rechk doing [...] is off the rosuvastatingiven the class Robin Snow, DO [address] [place] [address], [address], [facility] [place] 01/10/2024 [...] the nsaids due to stomach issue Robin Snow DO [address] [place], [address], [facility] [place] 04/14/2024 11:53:36 11/25/19 25 text/htm l c/o gastritis The patient is participating in this appointment via telemedicine communication with a phone call/video calling service ([employer])The patient consents to use of these platforms [...] to check his CBC HARIKA RAY [address] [place], [address], [facility] [place] 11/24/2024 [...] horribly worse when he took eliquis Robin Snow, DO [address] [facility], [place], [address], [facility] 11/30/2024 16:56:27
--- OUTSIDE RECORDS SUMMARY | 2024-12-15 14:54 | XMS_ITS | Data Portability ---
Author Organization [facility], [facility] Address [address] [place] [address] Assessment No assessment recorded. Plan of Treatment [...] Demetria - Colonoscopy completed Teodoro Augustin MD [address] [place] [address], [phone] 10/17/2016 09:25:56 Imaging Results None recorded. Procedure Notes None recorded. Medical Equipment None Reported. Vitals None Recorded Social History None recorded. Functional Status None recorded. Mental Status None recorded. Family History Nothing Reported. Medical History No medical history recorded. Past Encounters Encounter ID Performer Location Encounter Start Date Encounter Closed Date Diagnosis/Indication Diagnosis SNOMED-CT Code Diagnosis ICD10 Code Diagnosis Note [id number] Teodoro Augustin MD [facility], [address] [address] 10/17/2016 08:17:23 10/17/2016 13:57:30 Health Concerns Section Related Observation LastModified by Organization Detai ls LastModified Time None Recorded Concern Status LastModified by Organization Details LastModified Time None Recorded Advance Directives Directive None Recorded Payers Encounter Date Sequence Insurance Name Policy Number Policy Echols Covered Member ID Echols Member ID Guarantor Name 10/17/2016 2 [facility] INDEMNITY PLAN - [facility] [id number] Ralph Velásquez [id number] Ralph Velásquez 10/17/2016 1 MEDICARE [place]: [employer] Ralph Velásquez [id number] Ralph Velásquez
--- OUTSIDE RECORDS SUMMARY | 2024-12-15 14:54 | XMS_ITS | Clinical Summary ---
Author Organization [facility] Address [address] [place] [address] Care Team Providers Care Clinical Cytopathologist Name Role Phone Robin Snow DO Primary Care Provider [phone] Allergies Active Allergy Reactions Criticality Noted Date [...] age to complete this topic Care Teams Clinical Cytopathologist Relationship Specialty Start Date End Date Robin Snow DO [address] [place] [address] PCP - General Internal Medicine 07/02/23
--- OUTSIDE RECORDS SUMMARY | 2024-12-15 14:55 | XMS_ITS | Patient Health Record ---
Author Organization [facility] Address [address] [place] [address] Care Team Providers Care Wetlands Conservation Laborer Name Role Phone Tod Pepper Primary Care Provider [phone] Reason For Referral No Information Medications Medication [...] BS OF [place]/OUT OF PLAN [address] [place], [place] [phone] [id number] Ralph Velásquez Self - patient is the insured
--- OUTSIDE RECORDS SUMMARY | 2024-12-15 14:55 | XMS_ITS | Data Portability ---
Author Organization [facility], [id number] [place] [address] Assessment No assessment recorded. Plan of Treatment Reminders Order Date Submit Date Provider Last Modified By Organization Details Last Modified Time Details Appointments None recorded. Lab None recorded. Referral None recorded. Procedures None recorded. Surgeries None recorded. Imaging None recorded. Medication Orders Augmentin 875 mg-125 mg tablet 2022 023 JOSE ALEJANDRO [facility]arm[facility] #[id number], [address] [place], [address], 3 17:30:06 Flonase Allergy Relief 50 mcg/actuat ion nasal spray,susp ension 2022 023 [email or web address] [facility] #[id number], [address] [place], [address], 3 08:25:25 Patient TargetsNo targets recorded. Patient Instructions Encounter Date Encounter Id Patient Instructions Last Modified By Organization Details Last Modified Time 08/20/2023 [id number] Acute Sinusitis: Care Instructions [email or web address] Not available 08/20/2023 17:30:02 Based on your [...] watery post nasal drip. 6. Saline Nasal [place] is recommended. Since an antibiotic was prescribed [...] notice immediate response. Thank you for using [email or web address] today, please feel free to contact our office if you have any questions or concerns. [email or web address] Not available 08/20/2023 17:29:20 Reason for Referral [...] Updated DateTime 3 180.34 cm 25.8 kg/m2 08970.5 9 g 99 % 99 % 57 /min 18 /min 98 [degF] 182 mm[Hg] 92 mm[Hg] HARIKA HERNANDEZ [facility], [address], [place] - [facility] 3 17:18:05 Social History None recorded. Functional Status None recorded. Mental Status None recorded. Family History Nothing Reported. Medical History No medical history recorded. Past Encounters Encounter ID Performer Location Encounter Start Date Encounter Closed Date Diagnosis/Indication Diagnosis SNOMED-CT Code Diagnosis ICD10 Code Diagnosis Note [id number] [address] [address] 02/20/2016 17:01:31 02/20/2016 19:02:50 [id number] 21005[facility] [facility] [place] [address] 12/19/2016 10:44:34 12/19/2016 12:12:23 [id number] 20995[address]Chi N[address] [facility] [place] [address] 11/17/2016 18:47:51 11/17/2016 19:22:[id number] [place] [address] 01/09/2018 16:10:21 01/09/2018 16:56:38 [id number] [address] [place] [address] 09/15/2018 11:14:19 09/15/2018 12:19:19 [id number] [address] [place] [address] 08/31/2018 13:26:41 08/31/2018 15:32:38 [id number] [address] [place] [address] 09/16/2017 11:32:53 09/16/2017 12:29:03 [id number] [address] [place] [address] 06/09/2019 14:21:27 06/09/2019 15:06:37 [id number] [address] [facility] [place] [address] 09/18/2016 11:25:55 09/18/2016 12:11:29 [id number] [address] [address] 12/14/2016 11:53:57 12/14/2016 12:44:13 [id number] HARIKA HERNANDEZ [address] [place] [address] 08/20/2023 16:57:49 08/20/2023 17:31:37 Acute sinusitis [id number] J01.90 TAKE A PROBIOTIC OR EAT YOGURT [...] Member ID Guarantor Name 01/09/2018 1 MEDICARE [place]: [employer] Ralph Velásquez [id number] Ralph Grajeda Bijoséunis 01/09/2018 2 [facility] [id number] Brigida Masunmaldonado [id number] Ralph Grajeda Bielunis 08/31/2018 1 [place]: [employer] Ralph Velásquez [id number] Ralph Grajeda Bielunis 08/31/2018 2 [facility] [id number] Brigida Fisherelunis [id number] Ralph Grajeda Bielunis 09/15/2018 1 MEDICARE [place]: [employer] Ralph Velásquez [id number] Ralph Grajeda Bielunis 09/15/2018 2 [facility] [id number] Brigida Fonseca Bielunis [id number] Ralph Grajeda Bielunis 06/09/2019 1 MEDICARE [place]: [employer] Ralph Velásquez [id number] Ralph Velásquez 06/09/2019 2 [facility] [id number] Brigida Velásquez [id number] Ralph Velásquez 08/20/2023 1 MEDICARE B-LA: [facility] Ralph Velásquez [id number] Ralph Velásquez 08/20/2023 2 [facility] [id number] Brigida Velásquez [id number] Ralph Velásquez Notes Date Note Type Note Provider Name and Address Organization Details Recorded Time 08/20/2023 text/html 73 y.o male pt presents with sinus congestion and pressure for 3 weeks. Pt has had Sinusitis in the past. He denies fever, sob or chest pain HARIKA HERNANDEZ [address] [place], [place] [address], [address], [place] - [facility] 08/20/2023 17:30:06
== END 2024-12-10 00:01 | disposition home or self-care (01) ==
LOC: HO.MANLNP
PROVIDERS: Visit Provider Internal Medicine
DX: Z13.89 Encounter for screening for other disorder (principal)
CPT/HCPCS: 82274

== ENCOUNTER 2024-12-22 15:33 | Outpatient (REF) | payer MEDICARE, OTHER, SELFPAY ==
[2024-12-22 16:55] LABS: MANUAL DIFF FLAG NO
[2024-12-22 16:58] LABS: Basophils Absolute Auto 0.1 X10*3/uL (0.0-0.2); Basophils Percent Auto 0.9 % (0-2); Eosinophils Absolute Auto 0.4 X10*3/uL (0.0-0.4); Eosinophils Percent Auto 4.4 % (0-4); Hematocrit 36.7 % (42.0-52.0); Hemoglobin 11.9 g/dl (14.0-18.0); Imm Gran Abs Auto 0.03 X10*3/uL (0.00-0.03); Imm Gran Pct Auto 0.4 % (0.0-0.4); Lymphocytes Absolute Auto 2.1 X10*3/uL (1.2-4.9); Lymphocytes Percent Auto 25.9 % (20-40); Mean Corpuscular HGB Conc 32.4 g/dl (31.0-36.0); Mean Corpuscular Hemoglobin 30.4 pg (27.0-33.0); Mean Corpuscular Volume 93.9 fL (80.0-98.0); Mean Platelet Volume 9.9 fL (9.4-12.4); Monocytes Absolute Auto 0.8 X10*3/uL (0.1-1.2); Monocytes Percent Auto 9.9 % (2-11); Neutrophils Absolute Auto 4.7 x10*3/uL (2.0-8.3); Neutrophils Percent Auto 58.5 % (45-73); Platelet Count 269 X10*3/uL (160-400); Red Blood Count 3.91 X10*6/uL (4.60-5.80); Red Cell Distribution Width 13.9 % (11.0-16.0)
[2024-12-22 17:13] LABS: Iron 37 mcg/dL (45-160); Percent Iron Saturation 15 % (15-50); Total Iron Binding Capacity 248 mcg/dL (228-428); Unsaturated Iron Binding 211 ug/dL
[2024-12-22 17:28] LABS: Ferritin 195 ng/mL (20-250)
--- OUTSIDE RECORDS SUMMARY | 2024-12-22 18:12 | XMS_ITS | Data Portability ---
Author Organization [facility], [facility] Address [address] [place] [address] Assessment No assessment recorded. Plan of Treatment [...] Demetria - Colonoscopy completed Teodoro Augustin MD [address] [place] [address], [phone] 10/17/2016 09:25:56 Imaging Results None recorded. Procedure Notes None recorded. Medical Equipment None Reported. Vitals None Recorded Social History None recorded. Functional Status None recorded. Mental Status None recorded. Family History Nothing Reported. Medical History No medical history recorded. Past Encounters Encounter ID Performer Location Encounter Start Date Encounter Closed Date Diagnosis/Indication Diagnosis SNOMED-CT Code Diagnosis ICD10 Code Diagnosis Note [id number] Teodoro Augustin MD [facility], [address] [address] 10/17/2016 08:17:23 10/17/2016 13:57:30 Health Concerns Section Related Observation LastModified by Organization Detai ls LastModified Time None Recorded Concern Status LastModified by Organization Details LastModified Time None Recorded Advance Directives Directive None Recorded Payers Encounter Date Sequence Insurance Name Policy Number Policy Echols Covered Member ID Echols Member ID Guarantor Name 10/17/2016 2 [facility] INDEMNITY PLAN - [facility] [id number] Ralph Velásquez [id number] Ralph Velásquez 10/17/2016 1 MEDICARE B-[place]: [employer] Ralph Velásquez [id number] Ralph Velásquez
--- OUTSIDE RECORDS SUMMARY | 2024-12-22 18:12 | XMS_ITS | Continuity of Care Document ---
Author Organization [facility], [facility] Address [address] [facility] [place] [address] [place] [address] Assessment Encounter Date Assessment Date Assessment LastModified by Organization Details LastModified Time 12/21/2024 12/21/2024 seeing hamp GI will send them notes [email or web address] Not available 12/21/2024 13:12:34 Plan of Treatment Reminders Order Date Submit Date Provider Last Modified By Organization Details Last Modified Time Details Appointments FOLLOW UP 15 2024 01:30P HARIKA PARISH Not available Not available Not available Lab iron + TIBC + ferritin, serum 2024 025 [facility], [address] [place] [address], [place], [address], 12/21/2024 13:05:20 CBC w/ auto diff 2024 025 [facility], [address] [place] [address], [address], 12/21/2024 13:05:20 fecal occult blood, QN, stool 2024 025 [facility], [address] [place] [address], [address], 12/21/2024 13:05:20 Referral None recorded. Procedures None recorded. Surgeries None recorded. Imaging None recorded. Medication Orders hyoscyami ne 0.125 mg sublingua l tablet 2024 025 [facility]/Pharmacy #[id number], [address] [place], [address], 12/21/2024 13:05:04 Slow Fe 137 mg (45 mg iron) tablet,ex tended release 2024 025 [email or web address] [facility]/Pharmacy #[id number], [address] [place], [address], 12/21/2024 16:30:15 Patient TargetsNo targets recorded. Patient InstructionsNo instructions recorded. Reason for Referral None Reported. Results Created Date Observation Date Name Description Value Unit Range Abnormal Flag Note LastModifiedBy Organization Detail LastModifiedTime 12/11/1912/08/2024 CT, abdom en, w/ contr ast No observ ation record ed. [address], [address], 12/10/2024 15:49:20 Result Notes None recorded. Problems Name Problem SNOMED Code Status Onset Date Resolution Date Notes Provider Name and Address Organization Details Recorded Time Headache 80077409 Active 2022 Jennifer gaelas [facility] 3 09:01:52 Cervical facet joint pain 577239549 Active 2022 Jennifer galeas [facility] 3 09:02:02 Hyperlipi demia 33037436 Active 2022 Jennifer galeas [facility] 3 09:02:14 Fibromyal parisa 830345880 Active 2022 Jennifer galeas [facility] 3 09:02:19 Insomnia 416416040 Active 2022 Jnenifer galeas [facility] 3 09:02:24 Prediabet es 992818604 Active 2022 Jennifer galeas [facility] 3 09:02:30 Abdominal bloating 869844279 Active 2022 Jennifer galeas [facility] 3 09:02:38 Irritable bowel syndrome 25452406 Active 2022 Jenniferjess Tellez null, [facility] 3 09:02:42 Abdominal aortic atheroscl erosis 799221781 Active 2022 Jenniferjess Tellez null, [facility] 3 09:02:52 Erectile dysfuncti on 954358070 Active 2022 Jenniferjess Tellez null, [facility] 3 09:03:02 Cielo thyroidit is 22706894 Active 2022 Jenniferjess Tellez null, [facility] 3 09:03:12 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 931714858927 109 Active 2022 Jenniferjess Tellez null, [facility] 3 09:03:24 Family history of polyp of colon 210771935 Active 2022 Jennifer Geoff null, [facility] 3 09:10:53 Family history of diabetes mellitus 634181795 Active 2022 Jennifer Geoff null, [facility] 3 09:11:01 Family history of malignant neoplasm of prostate 113317476 Active 2022 Jenniferjess Tellez null, [facility] 3 09:11:10 Lumbar spondylos is 770637275 Active 2022 Robin Snow, [address] [place] [address], [address], [facility] 3 14:52:09 Acute sinusitis 77176194 Active 2022 Robin Snow DO [address] [place] [address], [address], [place] [facility] 3 14:16:15 Cervico-o ccipital neuralgia 56618137 Active 2022 HARIKA RAY [address] [place] [address], [address], [facility] 3 16:27:39 Vitamin D deficienc y 32163431 Active 2022 Robin Snow DO [address] [place] [address], [address], [facility] 3 11:14:40 Osteoarth ritis 021418469 Active 2022 HARIKA RAY [address] [place] [address], [address], [facility] 3 13:27:19 Diverticu losis of colon 124288087 Active 2023 Robin Snow, DO [address] [place] [address], [address], [facility] 4 11:47:44 Epigastri c pain 44666152 Active 2023 Robin Snow DO [address] [place] [address], [address], [facility] 4 15:29:23 Hiatal hernia with gastroeso phageal reflux 989446096 Active 2023 HARIKA RAY [address] [place] [address], [address], [facility] 4 13:59:50 Male pattern alopecia 26892362 Active 2023 Robin Snow, DO [address] [place] [address], [address], [facility] 4 15:28:02 Myalgia caused by statin 148029784175 71819 Active 2023 Robin Snow, DO [address] [place] [address], [address], [facility] 4 15:34:34 Cough 06739795 Active 2023 Robin Snow DO [address] [place] [address], [address], [facility] 4 13:31:04 Gastritis 5633102 Active 2024 HARIKA RAY [address] [place] [address], [address], [facility] 5 15:20:34 Fever 906803295 Active 2024 HARIKA RAY [address] [place], [address], [facility] 5 15:33:01 Anemia 055024109 Active 2024 Robin Snow DO [address] [place], [address], [facility] 5 08:07:11 Iron deficienc y anemia 31046544 Active 2024 HARIKA RAY [address] [place] [address], [address], [facility] 5 12:48:59 Acute hemorrhag ic gastritis 3325966 Active 2024 HARIKA RAY [address] [place] [address], [address], [facility] 5 13:00:23 Delayed gastric emptying 700300268 Active 2024 HARIKA RAY [address] [place] [address], [address], [facility] 5 13:01:41 Hiatal hernia 94757643 Active 2024 HARIKA RAY [address] [place] [address], [address], [facility] 5 13:01:56 Gastric spasm 998257753 Active 2024 HARIKA RAY [address] [place] [address], [address], [facility] 5 13:02:13 Problem Notes None recorded. Medical Equipment None Reported. Allergies Allergen ID Allergen Name Allergen Category Reaction Reaction Severity Criticality Documentation Date Start Date Code Code System Note Provider Name and Address Organization Details Recorded Time 6328 cephalexi n medicatio n Not available Not available Not available 09/18/2022 2231 [facility] 09:[facility]:36 6329 pravastat in medicatio n Not available Not available Not available 09/18/2022 35659 RxNorm Jennifer galeas [facility] 3 09:01:42 6330 Bactrim medicatio n Not available Not available Not available 09/18/2022 27764 9 RxNorm Jennifer galeas [facility] 3 09:01:46 6988 oxycodone medicatio n Not available Not available Not available 02/18/2023 7804 RxNorm [facility] 4 15:03:17 Medications Name Sig Start [...] No t Available famotidine 40 mg tablet Take 1 tablet(s) every day by oral route as needed 2024 active Not Available Not Available Not Avai lable prednisone 20 mg tablet TAKE 2 TABLETS [...] t Available hyoscyamine 0.[address] 1 tablet twice a day by sublingua l route as needed for 14 days. 2024 active Not Available Not Available Not Avai lable omeprazole 20 mg capsule,del ayed release TAKE 1 CAPSULE BY MOUTH EVERY DAY 30 MINUTES BEFORE MORNING MEAL FOR 90 DAYS 12/21 completed Not Available Not Available Not Available diclofenac sodium 75 mg tablet,triston yed [...] completed Not Available Not Available Not Available Slow Fe 137 mg (45 mg iron) tablet,exte nded release Take 1 tablet every day by oral route as directed for 30 days. 2024 active Not Available Not Available Not Avai lable Vitals Date Recorded Body height Body mass index (BMI) Body weight Heart rate Oxygen saturation Oxygen saturation in Arterial blood by Pulse oximetry Systolic blood pressure Diastolic blood pressure Provider Name and Address Organization Details Last Updated DateTime 5 179.07 cm 23.5 kg/m2 73353.3 3 g 71 /min 98 % 98 % 138 mm[Hg] 82 mm[Hg] Lizeth Rosas [facility] 11:51:27 Social History Question Answer Notes LastModified by Organizat ion Details LastModified Time Tobacco Smoking Status Former Smoker Robin Snow, DO [address] [facility], [place], [address], [facility] 09/19/2022 14:19:29 What Was The [...] SNOMED-CT Code Diagnosis ICD10 Code Diagnosis Note [id number] HARIKA RAY [facility] [address] [facility] [facility],[place] [address] 11/24/2024 13:59:01 11/24/2024 15:54:27 Gastritis 5558875 K29.00 will switch up his medication Fever 740654252 R50.9 will send referral for nurse consult Hiatal her karley with gastroesophageal reflux 232961190 K21.9 meds adjusted [id number] Robin Snow [facility] [address] [facility] [facility] [address],[place] [address] 11/30/2024 16:03:15 12/01/2024 08:12:54 Abdominal bloating 137026935 R14.0 see below Diverticul osis of colon 575386356 K57.30 we will consider treating this if above unhelpful Epigastric pain 13422406 R10.13 long detailed discussion we will eliminate ALL the otc and rx pain meds this is a must as otc nsaid gastritis is a real possibilit yalso will have him stop the repatha (having a lot of URI and laryngeal mucous) Hyperlipidemia 04120960 E78.5 will need to rechk Anemia 212777683 D64.9 will rechk Depression screening 171 508071 Z13.31 neg;;;; [id number] HARIKA RAY [facility] [address],[place] [address] 12/21/2024 11:38:13 12/21/2024 13:58:35 Iron deficiency anemia 80869729 D50.8 will set up with lab work Acute hemo rrhagic gastritis 8416732 K29.01 need endoscope Delayed ga stric emptying 667537135 K30 ? Hiatal hernia 08242776 K 44.9 Gastric spasm 102641578 K31.89 will set up with hyosyamine SLcont off meds until he sees Health Concerns Section Related Observation LastModified by Organization Detai ls LastModified Time None Recorded Concern Status LastModified by Organization Details LastModified Time None Recorded Payers Encounter Date Sequence Insurance Name Policy Number Policy Echols Covered Member ID Echols Member ID Guarantor Name 12/21/2024 1 [place]: [facility] [employer] Ralph Velásquez [id number] Ralph [place] 12/21/2024 2 [facility] [id number] Ralph Velásquez [id number] Ralph Velásquez Notes Date Note Type Note Provider Name a nd Address Organization Details Recorded Time 5 text/html f/u CT discussed results, the patient reports that he is still having the stomach issueepigastricCT showed ?gastritis, also had an undigested meal in his stomach, had only eaten a small snack, ?delayed gastric emptyingalso has the mod to large hiatal hernia has his GI appt on Saturday, def needs a colonoscopythe patient reports that they moved it up can cont on the omeprazolewill fu after he sees HARIKA RAY [address] [place] [address], [place], [address], [facility] 12/21/2024 13:13:40
--- OUTSIDE RECORDS SUMMARY | 2024-12-22 18:12 | XMS_ITS | Data Portability ---
Author Organization HARIKA [facility], [id number] [place] [address] Assessment No assessment recorded. Plan of Treatment Reminders Order Date Submit Date Provider Last Modified By Organization Details Last Modified Time Details Appointments None recorded. Lab None recorded. Referral None recorded. Procedures None recorded. Surgeries None recorded. Imaging None recorded. Medication Orders Augmentin 875 mg-125 mg tablet 2022 023 JOSE ALEJANDRO [facility][id number], [address] [place], [address], 3 17:30:06 Flonase Allergy Relief 50 mcg/actuat ion nasal spray,susp ension 2022 023 [email or web address] [id number], [address] [place], [address], 3 08:25:25 Patient TargetsNo targets recorded. Patient Instructions Encounter Date Encounter Id Patient Instructions Last Modified By Organization Details Last Modified Time 08/20/2023 [id number] Acute Sinusitis: Care Instructions [email or web address] Not available 08/20/2023 17:30:02 Based on your [...] watery post nasal drip. 6. Saline Nasal [place] is recommended. Since an antibiotic was prescribed [...] notice immediate response. Thank you for using [facility] today, please feel free to contact our office if you have any questions or concerns. [email or web address] Not available 08/20/2023 17:29:20 Reason for Referral [...] Updated DateTime 3 180.34 cm 25.8 kg/m2 29570.5 9 g 99 % 99 % 57 /min 18 /min 98 [degF] 182 mm[Hg] 92 mm[Hg] HARIKA HERNANDEZ [facility] [place], [address], [place] - [facility] 3 17:18:05 Social History None recorded. Functional Status None recorded. Mental Status None recorded. Family History Nothing Reported. Medical History No medical history recorded. Past Encounters Encounter ID Performer Location Encounter Start Date Encounter Closed Date Diagnosis/Indication Diagnosis SNOMED-CT Code Diagnosis ICD10 Code Diagnosis Note [id number] [address] [address] 02/20/2016 17:01:31 02/20/2016 19:02:50 [id number] 21005[facility] [facility] [place] [address] 12/19/2016 10:44:34 12/19/2016 12:12:23 [id number] 20995[address] [facility] [place] [address] 11/17/2016 18:47:51 11/17/2016 19:22:26 [id number] [address] [place] [address] 01/09/2018 16:10:21 01/09/2018 16:56:38 [id number] [address] [place] [address] 09/15/2018 11:14:19 09/15/2018 12:19:19 [id number] [address] [place] [address] 08/31/2018 13:26:41 08/31/2018 15:32:38 [id number] [address] [place] [address] 09/16/2017 11:32:53 09/16/2017 12:29:03 [id number] [address] [place] [address] 06/09/2019 14:21:27 06/09/2019 15:06:37 [id number] [address] [facility] [place] [address] 09/18/2016 11:25:55 09/18/2016 12:11:29 [id number] [address] [address] [address] 12/14/2016 11:53:57 12/14/2016 12:44:13 [id number] HARIKA HERNANDEZ [address] [place] [address] 08/20/2023 16:57:49 08/20/2023 17:31:37 Acute sinusitis [id number] J01.90 TAKE A PROBIOTIC OR EAT YOGURT [...] Member ID Guarantor Name 01/09/2018 1 MEDICARE B-CO: [employer] Ralph Velásquez [id number] Ralph Grajeda Bijoséunis 01/09/2018 2 [facility] [id number] Brigida Masunmaldonado [id number] Ralph Grajeda Bielunis 08/31/2018 1 [place]: [employer] Ralph Velásquez [id number] Ralph Grajeda Bielunis 08/31/2018 2 [facility] [id number] Brigida Fisherelunis [id number] Ralph Grajeda Bielunis 09/15/2018 1 MEDICARE B-CO: [employer] Ralph Velásquez [id number] Ralph Grajeda Bielunis 09/15/2018 2 [facility] [id number] Brigida Fonseca Bielunis [id number] Ralph Grajeda Bielunis 06/09/2019 1 MEDICARE B-CO: [employer] Ralph Velásquez [id number] Ralph Velásquez 06/09/2019 2 [facility] [id number] Brigida Velásquez [id number] Ralph Velásquez 08/20/2023 1 MEDICARE B-CO: [facility] Ralph Velásquez [id number] Ralph Velásquez 08/20/2023 2 [facility] [id number] Brigida Velásquez [id number] Ralph Velásquez Notes Date Note Type Note Provider Name and Address Organization Details Recorded Time 08/20/2023 text/html 73 y.o male pt presents with sinus congestion and pressure for 3 weeks. Pt has had Sinusitis in the past. He denies fever, sob or chest pain HARIKA HERNANDEZ [address] [place], [place] [address], [address], [place] - [facility] 08/20/2023 17:30:06
--- OUTSIDE RECORDS SUMMARY | 2024-12-22 18:12 | XMS_ITS | Clinical Summary ---
Author Organization [facility] Address [address] [place] [address] Care Team Providers Care Die Caster Name Role Phone Robin Snow DO Primary Care Provider [phone] Allergies Active Allergy Reactions Criticality Noted Date [...] age to complete this topic Care Teams Die Caster Relationship Specialty Start Date End Date Robin Snow DO [address] [place] [address] PCP - General Internal Medicine 07/02/23
--- OUTSIDE RECORDS SUMMARY | 2024-12-22 18:12 | XMS_ITS | Clinical Summary ---
Author Organization [facility] Address [address] [place] [address] Care Team Providers Care Electrical Prospector Name Role Phone Gil Pridelon Primary Care [...] this topic Zoster (Zostavax) Discontinued Care Teams Electrical Prospector Relationship Specialty Start Date End Date Gil Pride PCP - General 04/01/23
--- OUTSIDE RECORDS SUMMARY | 2024-12-22 18:12 | XMS_ITS | Clinical Summary ---
Author Organization [facility] Address [address] [place] [address] Care Team Providers Care Cardiac Nurse Specialist Name Role Phone Robin Snow DO Primary Care Provider [phone] Allergies Active Allergy Reactions Criticality Noted Date [...] Office Visit [facility] [address] [place] [address] Brit Ivey PA Rectal bleeding [...] Recently Relevant to Health Maintenance Insurance MEDICARE [facility] Care Teams Cardiac Nurse Specialist Relationship Specialty Start Date End Date Robin Snow DO [address] [facility] [address] [place], [place] PCP - General 07/02/23
--- OUTSIDE RECORDS SUMMARY | 2024-12-22 18:13 | XMS_ITS | Data Portability ---
Author Organization [facility] Home Service Address [address] [place] [address] Assessment Encounter Date Assessment Date Assessment LastModified by Organization Details LastModified Time 01/10/2024 01/10/2024 [id number] [place] [id number] (DAIRY HAND) [facility] HIGH MUST MEET 2 OUT OF 3 [...] [email or web address] Not available 11/24/2024 15:31:14 11/30/2024 11/30/2024 [id number] [place] [id number] (DAIRY HAND) [facility] HIGH MUST MEET 2 OUT OF 3 [...] an established patient. Not available 11/30/2024 16:54:51 12/21/2024 12/21/2024 seeing hamp GI will send them notes [email or web address] Not available 12/21/2024 13:12:34 Plan of Treatment Reminders Order Date Submit Date Provider Last Modified By Organization Details Last Modified Time Details Appointments FOLLOW UP 15 2024 01:30P M HARIKA RAY Not available Not available Not available Lab iron + TIBC + ferritin, serum 2024 025 [facility], [address] [place] [address], [id number], 12/21/2024 13:05:20 CBC w/ auto diff 2024 025 [facility], [address] [place] [address], [address], 12/21/2024 13:05:20 fecal occult blood, QN, stool 2024 025 [facility], [address] [place] [address], [address], 12/21/2024 13:05:20 lipid panel, serum 2023 024 [facility], [address] [place] [address], [address], 04/14/2024 11:08:08 CK (creatine kinase), total, serum 2023 024 [facility], [address] [place] [address], [address], 01/10/2024 15:44:03 erythrocy te sedimenta tion rate by zia cuellar 2023 024 [facility], [address] [place] [address], [address], 01/10/2024 15:44:03 aldolase, serum 2023 024 [facility], [address] [place] [address], [address], 01/15/2024 11:06:37 C reactive protein, QN, serum or plasma 2023 024 [facility], [address] [place] [address], [address], 01/10/2024 15:44:03 CMP, serum or plasma 2023 024 [facility], [address] [place] [address], [address], 01/10/2024 15:26:00 CMP, serum or plasma 2023 024 [facility], [address] [place] [address], [address], 01/13/2024 11:07:26 Referral home health referral 2024 025 [facility] - Active Patient Orders Only, [address], [place], [address], 11/25/2024 09:22:41 physical therapist referral - please provide instructi on on cervial traction 2023 024 [facility], [address], [place], [address], 04/22/2024 09:04:54 Procedures None recorded. Surgeries None recorded. Imaging CT, abdomen, w/ contrast 2024 025 [facility], [address] [place], [address], 12/01/2024 09:20:29 Medication Orders hyoscyami ne 0.125 mg sublingua l tablet 2024 025 [facility], [address] [place] [address], [address], 12/21/2024 13:05:04 Slow Fe 137 mg (45 mg iron) tablet,ex tended release 2024 025 [facility] [address] [place] [address], [address], 12/21/2024 16:30:15 pantopraz ole 40 mg tablet,de layed release 2024 025 [facility], [address] [place] [address], [address], 11/24/2024 15:31:21 famotidin e 40 mg tablet 2024 025 [facility], [address] [place] [address], [address], 11/24/2024 15:31:20 sucralfat e 1 gram tablet 2024 025 [facility], [address] [place] [address], [address], 11/24/2024 15:31:21 butalbita l-acetami nophen-ca ffeine 50 mg-325 mg-40 mg tablet 2023 024 [facility], [address] [place] [address], [address], 04/14/2024 11:53:32 minoxidil 2.5 mg tablet 2023 024 [facility], [address] [place] [address], [address], 01/10/2024 15:38:06 Propecia 1 mg tablet 2023 024 [facility], [address] [place], [address], 01/11/2024 22:49:40 diazepam 5 mg tablet 2023 024 JOSE ALEJANDRO [facility], [address] [place], [address], 01/10/2024 15:38:07 ezetimibe 10 mg tablet 2023 024 jbigda [facility], [address] [place], [address], 01/17/2024 09:58:37 Patient TargetsNo targets recorded. Patient Instructions Encounter Date Encounter Id Patient Instructions Last Modified By Organization Details Last Modified Time 01/10/2024 [id number] irritable bowel syndrome: care instructions Not available 01/10/2024 15:21:11 high cholesterol : care instructions Not available 01/10/2024 15:21:11 04/14/2024 [id number] headache: care instructions Not available 04/14/2024 11:50:34 Reason for Referral Physical Therapist Referral for Cervico-occipital neuralgia please provide instruction on cervial traction Referring Physician: Robin Snow, Internal Medicine, Encounter Date: 04/14/2024 Home Health Referral for Fev er has vna through [facility] ortho, needs BW done as he is having a fever after knee replacement Referring Physician: Shreyas Briscoe, Internal Medicine, Encounter Date: 11/24/2024 Results Created Date Observation Date Name Description Value Unit Range Abnormal Flag Note LastModifiedBy Organization Detail LastModifiedTime 03/26/2003/26/2024 XR, chest , 2 view No observ ation record ed. [facility] ( [facility]) [address] [facility] [place], [address], 03/26/2024 19:52:27 12/11/19 25 12/08/2024 CT, abdom en, w/ contr ast No observ ation record ed. [address], [place], [address], 12/10/2024 15:49:20 Result Notes None recorded. Problems Name Problem SNOMED Code Status Onset Date Resolution Date Notes Provider Name and Address Organization Details Recorded Time Headache 05783850 [facility] Cervical facet joint pain 868367380 Active 2022 [facility] 09:02:02 Hyperlipi demia 86839129 Active 2022 [facility] 09:02:14 Fibromyal parisa 192561583 Active 2022 [facility] 09:02:19 Insomnia 719936822 Active 2022 [facility] 09:02:24 Prediabet es 556707134 Active 2022 [facility] 09:02:30 Abdominal bloating 288547137 Active 2022 Jennifer galeas [facility] 3 09:02:38 Irritable bowel syndrome 75936705 Active 2022 [facility] 09:02:42 Abdominal aortic atheroscl erosis 231624847 Active 2022 [facility] 09:02:52 Erectile dysfuncti on 016421122 Active 2022 Jennifer galeas [facility] 3 09:03:02 Cielo thyroidit is 21070700 Active 2022 Jennifer galeas [facility] 3 09:03:12 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 078089055181 109 Active 2022 Jennifer Tellez null, [facility] 3 09:03:24 Family history of polyp of colon 483249380 Active 2022 Jennifer Tellez null, [facility] 3 09:10:53 Family history of diabetes mellitus 493706532 Active 2022 Jennifer Tellez null, [facility] 3 09:11:01 Family history of malignant neoplasm of prostate 845485300 Active 2022 Jennifer Tellez null, [facility] 3 09:11:10 Lumbar spondylos is 375988396 Active 2022 Robin Snow, [address] [place] [address], [address], [facility] 3 14:52:09 Acute sinusitis 89103785 Active 2022 Robin Snow DO [address] [place] [address], [address], [place] [facility] 3 14:16:15 Cervico-o ccipital neuralgia 95245646 Active 2022 HARIKA RAY [address] [place] [address], [address], [facility] 3 16:27:39 Vitamin D deficienc y 57606692 Active 2022 Robin Snow, [address] [place] [address], [address], [place] [facility] 3 11:14:40 Osteoarth ritis 187529365 Active 2022 HARIKA RAY [address] [place] [address], [address], [facility] 3 13:27:19 Diverticu losis of colon 867533542 Active 2023 Robin Snow DO [address] [place] [address], [address], [facility] 4 11:47:44 Epigastri c pain 76497942 Active 2023 Robin Snow, DO [address] [place] [address], [address], [facility] 4 15:29:23 Hiatal hernia with gastroeso phageal reflux 580281117 Active 2023 HARIKA RAY [address] [place] [address], [address], [facility] 4 13:59:50 Male pattern alopecia 92849305 Active 2023 Robin Snow DO [address] [place] [address], [address], [facility] 4 15:28:02 Myalgia caused by statin 960911012289 43519 Active 2023 Robin Snow [address], [address], [facility] 4 15:34:34 Cough 86144602 Active 2023 Robin Snow DO [address] [place] [address], [address], [facility] 4 13:31:04 Gastritis 7546923 Active 2024 HARIKA RAY [address] [place] [address], [address], [facility] 5 15:20:34 Fever 921929429 Active 2024 HARIKA RAY [address] [place] [address], [address], [facility] 5 15:33:01 Anemia 077134051 Active 2024 Robin Snow DO [address] [place] [address], [address], [facility] 5 08:07:11 Iron deficienc y anemia 74345359 Active 2024 HARIKA RAY [address] [place], [address], [facility] 5 12:48:59 Acute hemorrhag ic gastritis 9595838 Active 2024 HARIKA RAY [address] [place], [address], [facility] 5 13:00:23 Delayed gastric emptying 246130968 Active 2024 HARIKA RAY [address] [place], [address], [facility] 5 13:01:41 Hiatal hernia 08742801 Active 2024 HARIKA RAY [address] [place], [address], [facility] 5 13:01:56 Gastric spasm 861110056 Active 2024 HARIKA RAY [address] [place], [address], [facility] 13:02:13 Problem Notes None recorded. Procedures Surgical History None recorded. Imaging Results Imaging Date Name Status LastModified by Organiz ation Details LastModified Time 03/26/2024 XR, chest, 2 view completed [address] ( [facility]) [address] [place] [address] [place], [address], 03/26/2024 19:52:27 12/08/2024 CT, abdomen, w/ contrast completed [address], [address], 12/10/2024 15:49:20 Procedure Notes None recorded. Medical Equipment None Reported. Allergies Allergen ID Allergen Name Allergen Category Reaction Reaction Severity Criticality Documentation Date Start Date Code Code System Note Provider Name and Address Organization Details Recorded Time 6931 cephalexi n medicatio n Not available Not available Not available 09/18/2022 2231 RxNorm Jennifer Tellez [facility] 3 09:01:36 6329 pravastat in medicatio n Not available Not available Not available 09/18/2022 63857 RxNorm Jennifer galeas [facility] 3 09:01:42 6330 Bactrim medicatio n Not available Not available Not available 09/18/2022 72353 9 RxNorm Jennifer galeas [facility] 3 09:01:46 6988 oxycodone medicatio n Not available Not available Not available 02/18/2023 7804 RxNorm GI upset Rony galeas [facility] 4 15:03:17 Medications Name Sig Start Date [...] MOUTH EVERY 8 HOURS NEEDED FOR PAIN 04/01 /2025 completed Not Available Not Available Not Available [...] Updated DateTime 4 182.88 cm 24.9 kg/m2 64699.8 4 g 68 /min 16 /min 98 % 98 % 122 mm[Hg] 82 mm[Hg] Rony Harrison [facility] 4 15:02:54 Date Recorded Body height Body mass index (BMI) Body weight Heart rate Oxygen saturation Oxygen saturation in Arterial blood by Pulse oximetry Systolic blood pressure Diastolic blood pressure Provider Name and Address Organization Details Last Updated DateTime 4 179.07 cm 25.1 kg/m2 24904.2 1 g 74 /min 98 % 98 % 134 mm[Hg] 80 mm[Hg] Rony Lori [facility] 4 11:11:07 Date Recorded Body height Body mass index (BMI) Body weight Heart rate Oxygen saturation Oxygen saturation in Arterial blood by Pulse oximetry Systolic blood pressure Diastolic blood pressure Provider Name and Address Organization Details Last Updated DateTime 5 179.07 cm 25 kg/m2 54765.8 5 g 99 /min 98 % 98 % 140 mm[Hg] 60 mm[Hg] Krupa Cobb [facility] 5 16:16:42 Date Recorded Body height Body mass index (BMI) Body weight Heart rate Oxygen saturation Oxygen saturation in Arterial blood by Pulse oximetry Systolic blood pressure Diastolic blood pressure Provider Name and Address Organization Details Last Updated DateTime 5 179.07 cm 23.5 kg/m2 64884.3 3 g 71 /min 98 % 98 % 138 mm[Hg] 82 mm[Hg] Lizeth Rosas [facility] 5 11:51:27 Social History Question Answer Notes LastModified by Organizat ion Details LastModified Time Tobacco Smoking Status Former Smoker Robin Snow DO [address] [place] [address], [address] 09/19/2022 14:19:29 What Was The [...] SNOMED-CT Code Diagnosis ICD10 Code Diagnosis Note [id number] Robin Snow DO [facility] [address] [facility],[place] [address] 09/19/2022 14:01:07 09/19/2022 15:12:55 Irritable bowel syndrome 59302719 K58.9 using diazepam Cervical f acet joint pain 579845825 M54.2 sees [facility] for injections Prediabetes 014437052 R7 3.03 will need labwork Cielo thyroiditis 21 763842 E06.3 will need tsh Hyperlipidemia 78927511 E78.5 will need to rechk [id number] Robin Snow [facility] [address] [facility],[place] [address] 11/26/2022 14:41:03 11/26/2022 15:15:18 Prediabetes 151876155 R73.03 doing great no DM< a1c is 5.9 Insomnia 649897817 G47.0 0 [place] [id number] Robin Snow [facility] [address] [facility],[place] [address] 04/09/2023 10:30:35 04/09/2023 11:25:09 Active or passive immunization 070198764 Z23 Adult heal th examination 086167149 Z00.00 Lumbar spondylosis 11842 0009 M47.896 stabke radha navarrete is his neck Cielo thyroiditis 21 192069 E06.3 will need tsh Hyperlipidemia 13820020 E78.5 will need to rechk Vitamin D deficiency 347 33583 E55.9 Cervico-oc cipital neuralgia 17173738 M54.81 [id number] Robin Snow [facility] [address] [facility],[place] [address] 10/25/2023 11:09:46 10/25/2023 15:09:21 Irritable bowel syndrome 00413932 K58.9 bentyl unhelpful we will try donnatol Diverticul osis of colon 730590436 K57.30 we will consider treating this if above unhelpful [id number] Robin Snow [facility] [address] [facility] [address],[place] [address] 11/15/2023 14:32:43 11/15/2023 15:39:21 Irritable bowel syndrome 08530308 K58.9 bentyl unhelpful we will try donnatol Epigastric pain 72105894 R10.13 stop atorvastat in stop oxycodstop pepcid use omeprazole [id number] Robin Snow DO [facility] [address] [facility] [place] [address] 01/10/2024 14:50:25 01/10/2024 15:57:54 Irritable bowel syndrome 34810769 K58.9 this was the rosuvastat in Epigastric pain 57667945 R10.13 stop atorvastat in stop oxycodstop pepcid use omeprazole Hiatal her karley with gastroesophageal reflux 658697114 K21.9 discussed re scalp hair look Depression screening 171 710678 Z13.31 neg;;;; Hyperlipidemia 26875679 E78.5 will need to rechk Lumbar spondylosis 78052 0009 M47.896 stabke radha navarrete is his neck Male pattern alopecia 87 463408 L64.9 Myalgia ca used by statin 5301597594 0935169 T46.6X5D will need to order lab [id number] Robin Snow DO [facility] [address] [facility] [place] [address] 04/14/2024 11:00:13 04/14/2024 11:59:03 Active or passive immunization 333004427 Z23 utd Adult heal th examination 308174153 Z00.01 as noted he will call the [facility] Depression screening 171 625988 Z13.31 neg;;;; Hiatal her karley with gastroesophageal reflux 932509482 K21.9 discussed re scalp hair look Headache 44524671 R51.9 has been stable for the most part but cant get Epigastric pain 14195368 R10.13 recent worseningu se omeprazole and can increase to bid for 10 days and see if this exacerbati on feels better Cervico-oc cipital neuralgia 63594638 M54.81 [id number] HARIKA RAY [facility] [address] [facility], [facility] [place] [address] 11/24/2024 13:59:01 11/24/2024 15:54:27 Gastritis 5066942 K29.00 will switch up his medication Fever 670256739 R50.9 will send referral for nurse consult Hiatal her karley with gastroesophageal reflux 837673317 K21.9 meds adjusted [id number] Robin Snow DO [facility] [address] [facility],[place] [address] 11/30/2024 16:03:15 12/01/2024 08:12:54 Abdominal bloating 959386599 R14.0 see below Diverticul osis of colon 646292364 K57.30 we will consider treating this if above unhelpful Epigastric pain 13022461 R10.13 long detailed discussion we will eliminate ALL the otc and rx pain meds this is a must as otc nsaid gastritis is a real possibilit yalso will have him stop the repatha (having a lot of URI and laryngeal mucous) Hyperlipidemia 31057781 E78.5 will need to rechk Anemia 747770188 D64.9 will rechk Depression screening 171 234440 Z13.31 neg;;;; [id number] SHREYAS BRISCOE [facility] [address] [facility],[place] [address] 12/21/2024 11:38:13 12/21/2024 13:58:35 Iron deficiency anemia 61870489 D50.8 will set up with lab work Acute hemo rrhagic gastritis 2963873 K29.01 need endoscope Delayed ga stric emptying 018339285 K30 ? Hiatal hernia 85476977 K 44.9 Gastric spasm 486001834 K31.89 will set up with hyosyamine SLcont off meds until he sees Health Concerns Section Related Observation LastModified by Organization Detai ls LastModified Time None Recorded Concern Status LastModified by Organization Details LastModified Time None Recorded Advance Directives Directive None Recorded Payers Encounter Date Sequence Insurance Name Policy Number Policy Echols Covered Member ID Echols Member ID Guarantor Name 01/10/2024 2 [employer] - SENIOR SERVICES PLAN F (MEDICARE SUPPLEMENT) [id number] Ralph Velásquez [id number] Ralph Velásquez 01/10/2024 1 [place] [facility] Ralph Velásquez [id number] Ralph Velásquez 04/14/2024 2 [employer] - SENIOR SERVICES PLAN F (MEDICARE SUPPLEMENT) [id number] Ralph Velásquez [id number] Ralph Velásquez 04/14/2024 1 [place] Ralph Velásquez [id number] Ralph Masunis 11/24/2024 2 [employer] - SENIOR SERVICES PLAN F (MEDICARE SUPPLEMENT) [id number] Ralph Velásquez [id number] Ralph Masunis 11/24/2024 1 [place] Ralph Velásquez [id number] Ralph Masunis 11/30/2024 2 [employer] - SENIOR SERVICES PLAN F (MEDICARE SUPPLEMENT) [id number] Ralph Velásquez [id number] Ralph Masunis 11/30/2024 1 [place] [facility] Ralph Velásquez [id number] Ralph Masunis 12/21/2024 1 [place] Ralph Velásquez [id number] Ralph Masunis 12/21/2024 2 [facility] [id number] Ralph Velásquez [id number] Ralph Velásquez Notes Date Note Type Note Provider Name and Address Organization Details Recorded Time 01/10/20 24 text/htm l here for rechk [...] the rosuvastatingiven the class Robin Snow, DO [address] [facility], [place], [address], [facility] 01/10/2024 15:39:08 04/14/20 24 text/htm [...] to stomach issue Robin Snow DO [address] [place], [address], [facility] 04/14/2024 11:53:36 11/25/19 25 text/htm l c/o gastritis The patient is participating in this appointment via telemedicine communication with a phone call/video calling service ([employer])The patient consents to use of these platforms [...] to check his CBC HARIKA RAY [address] [place], [address], [facility] 11/24/2024 15:41:42 12/01/19 25 text/htm [...] he took eliquis Robin Snow, DO [address] [facility], [place], [address], [facility] 11/30/2024 16:56:27 12/22/19 25 text/htm l f/u CT discussed results, the patient reports [...] omeprazolewill fu after he sees HARIKA RAY [address] [place] [address], [place], [address], [facility] 12/21/2024 13:13:40
== END 2024-12-22 15:34 | disposition home or self-care (01) ==
LOC: HO.MANLDS 15:33
PROVIDERS: Visit Provider Physician Assistant
DX: D50.8 Other iron deficiency anemias (principal)
CPT/HCPCS: 36415; 82728; 83540; 85025

== ENCOUNTER 2025-06-16 14:36 | Outpatient (REF) | payer MEDICARE, OTHER, SELFPAY ==
[2025-06-16 18:12] LABS: MANUAL DIFF FLAG NO
[2025-06-16 18:43] LABS: Hematocrit 43.9 % (42.0-52.0); Hemoglobin 14.4 g/dl (14.0-18.0); Imm Gran Abs Auto 0.09 X10*3/uL (0.00-0.03); Imm Gran Pct Auto 1.2 % (0.0-0.4); Lymphocytes Absolute Auto 1.6 X10*3/uL (1.2-4.9); Mean Corpuscular HGB Conc 32.8 g/dl (31.0-36.0); Mean Corpuscular Hemoglobin 31.8 pg (27.0-33.0); Mean Corpuscular Volume 96.9 fL (80.0-98.0); NRBC Abs Auto 0.000 X10*3/uL (0.0-0.012); NRBC Pct Auto 0.0 /100WBC (0.0-0.2); Platelet Count 216 X10*3/uL (160-400); Red Blood Count 4.53 X10*6/uL (4.60-5.80); White Blood Count 7.7 X10*3/uL (4.8-10.8)
[2025-06-16 19:24] LABS: Alanine Aminotransferase 40 U/L (0-40); Albumin Level 4.4 g/dL (3.5-5.0); Alkaline Phosphatase 50 U/L (39-117); Anion Gap 16 (12-20); Aspartate Amino Transferase 23 U/L (5-37); Blood Urea Nitrogen 21 mg/dL (9-16); Calcium 9.6 mg/dL (8.4-10.2); Carbon Dioxide 25 mmol/L (22-29); Chloride 104 mmol/L (96-108); Cholesterol 165 mg/dL (<200); Estimated Glomerular Filt Rate > 60; HDL Cholesterol 52 mg/dL (>40); Iron 124 mcg/dL (45-160); Percent Iron Saturation 45 % (15-50); Potassium 4.8 mmol/L (3.3-5.1); Sodium 140 mmol/L (135-145); Total Iron Binding Capacity 278 mcg/dL (228-428); Total Protein 6.8 g/dL (6.5-8.0); Triglycerides 161 mg/dL (<150); Unsaturated Iron Binding 154 ug/dL
[2025-06-16 19:31] LABS: Ferritin 330 ng/mL (20-250); Prostate Specific Antigen 0.42 ng/mL (<0.05-4.0)
[2025-06-16 19:48] LABS: Folate 8.3 ng/mL (> or = 4.0); Vitamin B12 > 2000 pg/mL (200-900)
--- OUTSIDE RECORDS SUMMARY | 2025-06-16 20:48 | XMS_ITS | Data Portability ---
Author Organization [place] [facility] [place] Address [address] [place] [address] Care Team Providers Care Corrective And Manual Arts Therapist Name Role Phone EMANUEL ABBOTT Primary Care Provider EMANUEL ABBOTT Referring Provider [phone] Assessment Encounter Date Assessment Date Assessment LastModified by Organization Details LastModified Time 04/19/2025 04/19/2025 HPI: 75-year-old zkpaj-zyux-fzlzis nt man. With bilateral shoulder pain. 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 He was previously seen at [facility] by Dr. Sabino Zelaya. In terms of pain he rates his left shoulder at best 1.5 out of 10 and at worst 6.5 out of 10 with a SANE score of 85%. On the right shoulder he rates his pain at best 0 out of 10 and at worst 3.5 out of 10 with a SANE score of 90%. ROS as per HPI. PHYSICAL EXAM: Constitutional: Well-developed, well-nourished, healthy appearing. Skin: Warm, dry, and without rashes. Pulmonary: Non-labored respirations on room air without audible wheezes. Musculoskeletal: Patient ambulates with a slow, symmetric, and steady gait. Active range of motion of the RIGHT shoulder is 165,50, T8 and LEFT shoulder is 160,50, T10 On the symptomatic RIGHT shoulder, Neer & Hakwins signs are Negative, Radhika sign is Negative and resisted ER strength is preserved 5/5 On the contralateral LEFT shoulder, Neer & Hakwins signs are Negative, Radhika sign is Negative and resisted ER strength is preserved 5/5. +IR lag No AC, SC, biceps signs, cross body adduction, scars, atrophy, deformity, belly press, lift off, external rotation lag sign, Hornblower's bilaterally. Fingers well perfused and normal. Capillary refill less than 2 seconds. Neurovascular exam, cervical spine exam, trunk and skin are normal. IMPRESSION: with Bilateral shoulder glenohumeral arthritis PLAN: I discussed the treatment options with the Patient includin. Living with the symptoms. 2. Continued non-operative management. 3. Surgical intervention. Nonoperative management be in the form of activity modification, relative rest, judicious use of anti-inflammatory medications as well as cryotherapy and corticosteroid injections. Operative intervention would be in the form of anatomic versus possible reverse shoulder replacement. We reviewed the risks and benefits of surgery including but not limited to the following: Risk of anesthesia, including ; infection; nerve/tendon/vess el injury; deep venous thrombosis (DVT), pulmonary embolism (PE); shoulder stiffness, allograft-related complications including but not limited to failure, disease transmission; hardware-related problems; failure of the graft to heal; failure of the partial rotator cuff repair to heal if performed; hardware-related problems, potential of the procedure to not alleviate the condition, pain, stiffness, scarring, arthritis, reaction, unexpected findings, radha biceps muscle appearance, and the potential need for further surgery in the future. A discussion regarding the risks and benefits of a glenohumeral corticosteroid injection was had with the patient. Risks include but not limited to pain, swelling, bleeding, infection, allergic reaction, elevated blood sugars, incomplete pain relief, tendon injury, bone loss, nerve damage, permanent skin depigmentation, fat atrophy and steroid flare. After reviewing the risks and benefits, patient verbalized understanding of the informed consent and elected to proceed with a corticosteroid injection. Patient tolerated the injection well. Patient may follow-up in 3 months for repeat clinical evaluation continue discussion regarding treatment options. Patient verbalized understanding of this and was agreed with the plan. All questions were answered to the patient's satisfaction. 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 The pathology and expected prognosis were discussed in detail. Treatment options include observation, splinting, injections and sometimes surgery with CMC arthroplasty if conservative treatment fails. They would like to proceed with an injection to both sides today. Details of injection and as well as risks were discussed, including but not limited to infection, bleeding, nerve injury, no improvement, worsening of symptoms, flare reaction, skin depigmentation, and lipodystrophy. I let them know it can take 2 days to 2 weeks to start working and up to 6 weeks to take its full effect. They understand this and gave verbal consent. They tolerated the procedure well. He declined splints today. They can take cgwz-vwm-mwopzff anti-inflammatory medication and try Voltaren gel, ice or heat as needed for pain. They will return to see me as needed if symptoms do not improve or they recur. All of her questions were answered, they are in agreement with the plan. [email or web address] Not available 06/10/2025 17:21:17 Plan of Treatment Reminders Order Date Submit Date Provider Last Modified By Organization Details Last Modified Time Details Appointments FOLLOW UP 2024 04:00P Lorrie Nuñez MD Not available Not available Not available Lab None recorde d. Referral None recorde d. Procedures None recorde d. Surgeries None recorde d. Imaging XR, wrist, 3 or more view 2024 [facility], [address], [address], [place], [address], 06/10/2025 15:25:57 XR, wrist, 3 or more view 2024 [facility], [address], [address], [place], [address], 06/10/2025 15:25:57 Medication Orders lidocai ne (PF) 10 mg/mL (1 %) injecti on solutio n 2024 [id number], [address] [place], [address], 06/10/2025 15:25:57 triamci nolone acetoni de 40 mg/mL suspens ion for injecti on [address] [id number], [address] [place], [address], 06/10/2025 15:25:57 lidocai ne (PF) 10 mg/mL (1 %) injecti on solutio n 2024 Not available 06/09/2025 15:53:31 Marcain e (PF) 0.5 % (5 mg/mL) injecti on solutio n 2024 Not available 06/09/2025 15:53:35 triamci nolone acetoni de 40 mg/mL suspens ion for injecti on 2024 Not available 06/09/2025 15:54:10 Patient TargetsNo targets recorded. Patient Instructions Encounter Date Encounter Id Patient Instructions Last Modified By Organization Details Last Modified Time 04/19/2025 [id number] Imaging: X-ray RIGHT shoulder, independent interpretation of AP and Axillary views by me show: located glenohumeral joint with moderate glenohumeral arthritis, bone on bone, osteophytes, sclerosis, and cysts. The glenoid has Walch A2 wear pattern without significant posterior subluxation. Imaging: X-ray LEFT shoulder, independent interpretation of AP and Axillary views by me show: located glenohumeral joint with moderate to severe glenohumeral arthritis, bone on bone, osteophytes, sclerosis, and cysts. The glenoid has Walch A2 wear pattern without significant posterior subluxation. Not available 04/20/2025 16:42:06 06/09/2025 [id number] You have been provided with a cortisone injection in order to reduce the pain and inflammation that you are experiencing. The injection consists of two medications. Cortisone (an anti-inflammatory that will take 48-72 hours to take effect) and Lidocaine (a numbing agent that will last 2-3 hours). Please note that not everyone will have a lasting response following the injection. PATIENT INSTRUCTIONS Once the Lidocaine wears off, you may have an increase in your pain. I recommend icing the affected area for 20 minutes 3-4 times per day. It is recommended that you refrain from any high level activities using the joint or limb that was injected for approximately 24-48 hours. Normal day-to-day activities are generally not a problem. POSSIBLE SIDE EFFECTS Individuals with dark complexions may experience some skin discoloration locally at the site of the injection. There is the possibility of an increase in discomfort within 48 hours following the injection. This is called catherine escobar . To help minimize the chances of this, please see the post-injection instructions above. There is a less than 1% chance of an infection. If you notice any signs of infection (redness, warmth, drainage, fever greater than 100 degrees) please call our office or contact us through the portal [facility]. [email or web address] Not available 06/10/2025 17:21:22 4 views of bilateral thumbs and wrist were ordered and reviewed today, demonstrates severe thumb CMC arthritis with joint space narrowing, osteophyte formation, subluxation. There is severe erosion of the trapezium. There is maintenance of joint space at the scaphoid trapezoid joints. [email or web address] Not available 06/10/2025 17:21:45 Reason for Referral None Reported. Problems Name Problem SNOMED Code Status Onset Date Resolution Date Notes Provider Name and Address Organization Details Recorded Time Strain of thoracic region 75782406 Active 2020 Strain of thoracic spine Not Available [facility] 5 00:12:12 Pain in thoracic spine 204704214 Active 2020 Thoracic spine pain Not Available [facility] 5 00:12:13 Internal hemorrhoi ds grade II 623305669 Active 2020 Prolapsed internal hemorrhoi ds, grade 2 Not Available [facility] 5 00:12:13 Osteoarth ritis of bilateral glenohume ral joints 71033244253 20711 Active 2024 Micheal Nuñez MD [address], [place], [address] , [place] [facility] 5 16:39:11 Problem Notes None recorded. Procedures Surgical History Date Name Laterality Status Provider Name and Address Organization Details Recorded Time 5 LES finger joint injection completed Juan Francisco Hogan [place] [facility] 06/09/2025 15:50:13 AJR Shoulder GH Inj completed Micheal Nuñez MD [address], [place], [address], [place] [facility] 04/20/2025 16:42:12 Imaging Results None recorded. Procedure Notes None recorded. Medical Equipment None Reported. Allergies Allergen ID Allergen Name Allergen Category Reaction Reaction Severity Criticality Documentation Date Start Date Code Code System Note Provider Name and Address Organization Details Recorded Time 48049 cephalexi n medicatio n Not available Not available Not available 05/18/20252014 2231 RxNorm React ion: Diarr hea, sever ity: Unkno wn Not Available [facility] 5 01:25:13 03966 pravastat in medicatio n Not available Not available Not available 05/18/20252016 83201 RxNorm React ion: Other (See Comme nts), sever ity: Unkno wn;Pr oblem s with memor y Not Available [facility] 5 01:25:13 57979 sulfameth oxazole / trimethop rim medicatio n Not available Not available Not available 05/18/20252016 85235 RxNorm React ion: Rash, sever ity: Unkno wn Not Available [facility] 5 01:25:14 Medications Name Sig Start Date Stop Date Status Note LastModified by Organization Details LastModified Time celecoxib 200 mg capsule Take 1 capsule (200 mg total) by mouth 2 (two) times a day. 06/09 completed Not Available Not Available Not Available amoxicillin 500 mg capsule TAKE 4 CAPSULES ONE HOUR PRIOR TO DENTAL WORK. 06/09 completed Not Available Not Available Not Available prednisone 10 mg tablet PLEASE SEE ATTACHED FOR DETAILED DIRECTION S 06/09 completed Not Available Not Available Not Available doxycycline hyclate 100 mg capsule TAKE 1 CAPSULE BY MOUTH TWICE A DAY FOR 10 DAYS 06/09 completed Not Available Not Available Not Available hydrocodone 5 mg-acetamin ophen 325 mg tablet TAKE 1 TABLET BY MOUTH EVERY 6 HOURS NEEDED FOR PAIN 06/09 completed Not Available Not Available Not Available meloxicam 15 mg tablet Take 1 tablet by mouth daily. 08/01 completed Not Available Not Available Not Available sucralfate 1 gram tablet TAKE 1 TABLET BY MOUTH FOUR TIMES A DAY DIRECTED FOR 15 DAYS 06/09 completed Not Available Not Available Not Available famotidine 40 mg tablet TAKE 1 TABLET BY MOUTH EVERY DAY FOR 30 DAYS 06/09 completed Not Available Not Available Not Available fondaparinu x 2.5 mg/0.5 mL subcutaneou s solution syringe INJECT 0.5 ML (2.5 MG TOTAL) UNDER THE SKIN DAILY FOR 9 DAYS. 06/09 completed Not Available Not Available Not Available minoxidil 2.5 mg tablet Take 1 tablet (2.5 mg total) by mouth 2 (two) times a day. 06/09 completed Not Available Not Available Not Available hydrocortis one 2.5 % topical cream with perineal applicator INSERT INTO THE RECTUM 2 TIMES A DAY FOR 10 DAYS. 06/09 completed Not Available Not Available Not Available methocarbam ol 750 mg tablet TAKE 1 TABLET BY MOUTH TWICE A DAY NEEDED FOR MUSCLE SPASMS 06/09 completed Not Available Not Available Not Available amitriptyli ne 10 mg tablet TAKE 1 TABLET BY MOUTH EVERY DAY AT BEDTIME FOR 30 DAYS 06/09 completed Not Available Not Available Not Available triamcinolo ne acetonide 40 mg/mL suspension for injection Take 80 mg by injection route. 06/09 completed Not Available Not Available Not Available pantoprazol e 40 mg tablet,triston yed release TAKE 1 TABLET BY MOUTH EVERY DAY DIRECTED 06/09 completed Not Available Not Available Not Available methylpredn isolone acetate 40 mg/mL suspension for injection 01/12 completed Not Available Not Available Not Available neomycin-po lymyxin-dex ameth 3.5 mg/mL-10,00 0 unit/mL-0.1 % eye drops INSTILL 1 DROP INTO AFFECTED EYE(S) EVERY 3 TO 4 HOURS 06/09 completed Not Available Not Available Not Available hyoscyamine 0.125 mg sublingual tablet TAKE 1 TABLET TWICE A DAY SUBLINGUA LLY NEEDED FOR 14 DAYS. 06/09 completed Not Available Not Available Not Available omeprazole 20 mg capsule,del ayed release TAKE 1 CAPSULE BY MOUTH EVERY DAY 30 MINUTES BEFORE MORNING MEAL FOR 90 DAYS 2024 active Not Available Not Available Not Avai lable diclofenac sodium 75 mg tablet,triston yed release 06/09 completed Not Available Not Available Not Available zolpidem 10 mg tablet TAKE 1 TABLET BY MOUTH EVERY DAY NEEDED active Not Available Not Available No t Available ketoconazol e 2 % topical cream APPLY TWICE DAILY TO RASH OF THE PENIS UNTIL CLEAR. MAY MIX WITH OTC HYDROCORT ISONE 06/09 completed Not Available Not Available Not Available morphine 15 mg immediate release tablet TAKE 0.5 TABLET BY MOUTH EVERY 4 HOURS NEEDED FOR SEVERE PAIN 06/09 completed Not Available Not Available Not Available ondansetron 4 mg disintegrat ing tablet TAKE 1 TABLET BY MOUTH EVERY 8 HOURS NEEDED FOR NAUSEA 06/09 completed Not Available Not Available Not Available doxycycline hyclate 100 mg tablet TAKE 1 TABLET BY MOUTH TWICE A DAY FOR 7 DAYS 06/09 completed Not Available Not Available Not Available diazepam 5 mg tablet TAKE 1 TABLET BY MOUTH TWICE A DAY PRN active Not Available Not Available No t Available finasteride 1 mg tablet Take 1 tablet (1 mg total) by mouth daily. 06/09 completed Not Available Not Available Not Available oxycodone 5 mg tablet TAKE 1 TABLET BY MOUTH EVERY 8 HOURS NEEDED FOR PAIN. 06/09 completed Not Available Not Available Not Available enoxaparin 40 mg/0.4 mL subcutaneou s syringe INJECT 0.4 ML (40 MG TOTAL) UNDER THE SKIN DAILY FOR 12 DAYS. 06/09 completed Not Available Not Available Not Available rosuvastati n 5 mg tablet Take 1 tablet (5 mg total) by mouth daily. 06/09 completed Not Available Not Available Not Available Marcaine (PF) 0.5 % (5 mg/mL) injection solution Take 4 mL by injection route. 06/09 completed Not Available Not Available Not Available lidocaine (PF) 10 mg/mL (1 %) injection solution Take 2 mL by injection route. 06/09 completed Not Available Not Available Not Available Linzess 145 mcg capsule TAKE 1 CAPSULE BY MOUTH EVERY DAY 06/09 completed Not Available Not Available Not Available Eliquis 2.5 mg tablet TAKE 1 TABLET (2.5 MG TOTAL) BY MOUTH TWICE A DAY FOR 14 DAYS 06/09 completed Not Available Not Available Not Available Repatha SureClick 140 mg/mL subcutaneou s pen injector INJECT 1 ML (140 MG TOTAL) UNDER THE SKIN EVERY 14 DAYS. 06/09 completed Not Available Not Available Not Available Phenohytro 16.2 mg-0.1037 mg-0.0194 mg tablet TAKE 2 TABLETS BY MOUTH 3 TIMES A DAY NEEDED 06/09 completed Not Available Not Available Not Available Slow Fe 137 mg (45 mg iron) tablet,exte nded release TAKE 1 TABLET BY MOUTH EVERY DAY DIRECTED 06/09 completed Not Available Not Available Not Available Vitals Date Recorded Body height Body mass index (BMI) Body weight Provider Name and Address Organization Details Last Updated DateTime 06/09/2025 180.34 cm 23.4 kg/m2 11048.52 g Juan Francisco Hogan [place] [facility], 06/09/2025 15:26:58 Social History None recorded. Functional Status None recorded. Mental Status None recorded. Family History Nothing Reported. Medical History No medical history recorded. Past Encounters Encounter ID Performer Location Encounter Start Date Encounter Closed Date Diagnosis/Indication Diagnosis SNOMED-CT Code Diagnosis ICD10 Code Diagnosis IMO Codes Diagnosis Note [id number] Micheal Nuñ[place] [address] 04/19/2025 15:45:44 04/19/2025 16:54:14 Osteoarthritis of bilateral glenohumeral joints 4385002011 102862 M19.011 M19.012 [id number] Brandie Caceres MD [place] 6[address] 06/09/2025 15:14:25 06/09/2025 16:15:38 Pain of right wrist 5844523746 50908 M25.531 294707 Pain of left wrist 49911 73079 20060 M25.532 462032 Arthritis of bilateral first carpometacarpal joints 4511055492 270023 M18.0 [id number] Health Concerns Section Related Observation LastModified by Organization Detlizette ls LastModified Time None Recorded Concern Status LastModified by Organization Details LastModified Time None Recorded Advance Directives Directive None Recorded Payers Insurance Date Sequence Insurance Name Policy Number Policy Echols Covered Member ID Echols Member ID Guarantor Name 06/06/2025 1 MEDICARE [place]: NGS Ralph Velásquez [id number] Ralph Grajeda Didier 06/08/2025 2 [facility] [id number] Brigida Fonseca Didier [id number] Ralph Grajeda Didier Notes Date Note Type Note Provider Name and Address Organization Details Recorded Time 06/09/2025 text/html ROS as noted in the HPI This is a 75-year-old fnocy-acfy-aimhqeu t male who presents with bilateral, left worse than right thumb pain. He describes the base of the thumb. It is worse with activity such as gripping and pinching objects. It has been present for years and has been progressive. He has tried diclofenac, Aloxi cam without significant relief of symptoms. Brandie Caceres MD [address], [place], [address], [place] [facility] 06/10/2025 17:22:19
--- OUTSIDE RECORDS SUMMARY | 2025-06-16 20:48 | XMS_ITS | Data Portability ---
Author Organization [facility], Telehealth Patient Home Address [address] [place] [address] Assessment Encounter Date Assessment Date Assessment LastModified by Organization Details LastModified Time 11/24/2024 11/24/2024 Patient agreed and verbally consents to this audio and video Telehealth appt via a secure platform [email or web address] Not available 11/24/2024 15:31:14 11/30/2024 11/30/2024 [id number] [place] [id number] (HISTOLOGICAL ILLUSTRATOR) MDM HIGH MUST MEET 2 OUT OF [...] them notes [email or web address] Not available 12/21/2024 13:12:34 06/02/2025 06/02/2025 Patient presente d to office today for their Medicare Annual Wellness Visit. Education was provided on healthy nutrition, including a diet rich in fruits and vegetables, minimizing simple carbohydrates, salt, and saturated fats. Encouraged regular cardiovascular exercise such as walking at least 30 minutes daily, 5 times per week. Emphasized preventive health measures and educated pt on fall prevention and community-based lifestyle interventions to help reduce health risks and promote healthy living. Not available 06/02/2025 12:29:13 Plan of Treatment Reminders Order Date Submit Date Provider Last Modified By Organization Details Last Modified Time Details Appointments FOLLOW UP 15 2024 03:30P M DR ABBOTT Not available Not available Not available FOLLOW UP 15 [address] ABBOTT Not available Not available Not available Lab CBC w/ auto diff 2024 025 [facility], [address] [place] [address], [id number], 06/02/2025 12:37:45 CMP, serum or plasma 2024 025 [facility], [address] [place] [address], [id number], 06/02/2025 12:37:45 lipid panel, blood 2024 025 [facility], [address] [place] [address], [id number], 06/02/2025 12:37:45 hemoglobi n, gastroint estinal, stool 2024 025 [facility], [address] [place] [address], [address], 06/02/2025 12:37:45 iron + TIBC + ferritin, serum 2024 025 [facility], [address] [place] [address], [address], 12/23/2024 13:05:34 CBC w/ auto diff 2024 025 [facility], [address] [facility], [place], [address], 12/23/2024 13:05:34 fecal occult blood, QN, stool 2024 025 [facility], [address] [facility], [place], [address], 12/21/2024 13:05:20 Referral infusion therapy center referral 2024 025 [facility] - Outpatient Imaging Central Scheduling (Not Breast), [address] [place] [address], [address], 01/01/2025 08:37:39 home health referral 2024 025 [facility] Orders Only, [address], [place], [address], 11/25/2024 09:22:41 Procedures None recorded. Surgeries None recorded. Imaging CT, abdomen, w/ contrast 2024 025 [facility], [address] [place] [address], [address], 12/01/2024 09:20:29 Medication Orders fentanyl 50 mcg/hr transderm al patch 2024 025 [facility]/Pharmacy #0447, [address] [place] [address], [id number], 06/14/2025 09:11:11 diazepam 5 mg tablet 2024 025 [facility]/Pharmacy #0447, [address] [place], [address], 12/30/2024 13:44:45 hyoscyami ne 0.125 mg sublingua l tablet 2024 025 [facility]/Pharmacy #0447, [address] [place] [address], [address], 06/02/2025 11:44:00 Slow Fe 137 mg (45 mg iron) tablet,ex tended release 2024 025 [facility] [address] [place], [address], 06/02/2025 11:54:14 pantopraz ole 40 mg tablet,de layed release 2024 025 [facility], [address] [place] [address], [address], 06/02/2025 11:53:28 famotidin e 40 mg tablet 2024 025 [facility], [address] [place] [address], [address], 11/24/2024 15:31:20 sucralfat e 1 gram tablet 2024 025 [facility], [address] [place] [address], [address], 06/02/2025 11:54:31 Patient TargetsNo targets recorded. Patient Instructions Encounter Date Encounter Id Patient Instructions Last Modified By Organization Details Last Modified Time 06/02/2025 [id number] advance care planning: care instructions Not available 06/02/2025 12:36:49 Discussed and explained advance directives such as standard forms to the . Face to face discussion lasted for a duration of ___ minutes. [email or web address] Not available 05/12/2025 09:47:38 Reason for Referral Home Health Referral for Fev er has vna through [facility] ortho, needs BW done as he is having a fever after knee replacement Referring Physician: Danitza Briscoe, Internal Medicine, Encounter Date: 11/24/2024 Infusion Therapy Center Refe rral for Iron deficiency anemia iron infusion, pt cannot tolerate oral pills due to ongoing gastritis issues Referring Physician: Danitza Briscoe, Internal Medicine, Encounter Date: 12/30/2024 Results Created Date Observation Date Name Description Value Unit Range Abnormal Flag Note LastModifiedBy Organization Detail LastModifiedTime 12/11/19 25 12/08/2024 CT, abdom en, w/ contr ast No observ ation record ed. [address], [address], 12/10/2024 15:49:20 02/05/20 25 02/04/2025 CT, abdom en, w/ contr ast No observ ation record ed. [facility] (Emergency Room) [address] [place] [address], [address], 02/04/2025 08:11:37 Result Notes None recorded. Problems Name Problem SNOMED Code Status Onset Date Resolution Date Notes Provider Name and Address Organization Details Recorded Time Headache 05012611 Active 2022 Jennifer galeas [facility] 3 09:01:52 Cervical facet joint pain 939792677 Active 2022 Robin Abbott, DO [address] [place], [address], [facility] 5 23:30:09 Hyperlipi demia 55276178 Active 2022 Jennifer galeas [facility] Internal [facility] 3 09:02:14 Fibromyal parsia 319946911 Active 2022 Jennifer galeas [facility] 3 09:02:19 Insomnia 069383485 Active 2022 Jennifer galeas [facility] Internal [facility] 3 09:02:24 Prediabet es 248471952 Active 2022 Jennifer galeas [facility] 3 09:02:30 Abdominal bloating 292665855 Active 2022 Jennifer galeas [facility] 3 09:02:38 Irritable bowel syndrome 23240777 Active 2022 Jennifer galeas [facility] 3 09:02:42 Abdominal aortic atheroscl erosis 045386669 Active 2022 Jennifer galeas [facility] Internal [facility] 3 09:02:52 Erectile dysfuncti on 830661570 Active 2022 Jennifer Geoff null, [facility] 3 09:03:02 Cielo thyroidit is 39411037 Active 2022 Jennifer Tellez null, [facility] 3 09:03:12 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 491918043107 109 Active 2022 Jennifer Geoff null, [facility] 3 09:03:24 Family history of polyp of colon 404240944 Active 2022 Jennifer Tellez null, [facility] 3 09:10:53 Family history of diabetes mellitus 689644415 Active 2022 Jennifer Tellez null, [facility] 3 09:11:01 Family history of malignant neoplasm of prostate 445416004 Active 2022 Jennifer Tellez null, [facility] 3 09:11:10 Lumbar spondylos is 300569076 Active 2022 Robin Abbott, DO [address] [place] [address], [address], [facility] 3 14:52:09 Acute sinusitis 79482825 Active 2022 Robin Abbott, DO [address] [place] [address], [address], [facility] 3 14:16:15 Cervico-o ccipital neuralgia 70018197 Active 2022 Robin Abbott, DO [address] [place] [address], [address], [facility] 5 23:29:29 Vitamin D deficienc y 16539440 Active 2022 Robin Abbott, DO [address] [place] [address], [address], [facility] 3 11:14:40 Osteoarth ritis 722442640 Active 2022 HARIKA RAY [address] [place] [address], [address], [facility] 3 13:27:19 Diverticu losis of colon 951920925 Active 2023 Robin Abbott, DO [address] [place] [address], [address], [facility] 4 11:47:44 Epigastri c pain 40180470 Active 2023 Robin Abbott, DO [address] [place] [address], [address], [facility] 4 15:29:23 Hiatal hernia with gastroeso phageal reflux 633786005 Active 2023 HARIKA RAY [address] [place] [address], [address], [facility] 4 13:59:50 Male pattern alopecia 62221759 Active 2023 Robin Abbott, DO [address] [place] [address], [address], [facility] 4 15:28:02 Myalgia caused by statin 093474964283 67205 Active 2023 Robin Abbott, DO [address] [place] [address], [address], [facility] 4 15:34:34 Cough 12247736 Active 2023 Robin Abbott, DO [address] [place] [address], [address], [facility] 4 13:31:04 Gastritis 1369373 Active 2024 HARIKA RAY [address] [place] [address], [address], [facility] 5 15:20:34 Fever 020060743 Active 2024 HARIKA RAY [address] [place] [address], [address], [facility] 5 15:33:01 Anemia 083822157 Active 2024 Robin Abbott DO [address] [place] [address], [address], [facility] 5 08:07:11 Iron deficienc y anemia 10418905 Active 2024 HARIKA RAY [address] [place] [address], [address], [facility] 5 12:48:59 Acute hemorrhag ic gastritis 3892859 Active 2024 HARIKA RAY [address] [place] [address], [address], [facility] 5 13:00:23 Delayed gastric emptying 632717547 Active 2024 HARIKA RAY [address] [place] [address], [address], [facility] 5 13:01:41 Hiatal hernia 87544784 Active 2024 HARIKA RAY [address] [place] [address], [address], [facility] 5 13:01:56 Gastric spasm 175285821 Active 2024 HARIKA RAY [address] [place] [address], [address], [facility] 5 13:02:13 Bleeding from nose 178344951 Active 2024 HARIKA RAY [address] [place] [address], [address], [facility] 5 13:38:42 Bacterial conjuncti vitis 148131732 Active 2024 Robin Abbott DO [address] [place] [address], [address], [facility] 5 15:42:00 Gastroeso phageal reflux disease 859965674 Active 2024 HARIKA RAY [address] [place] [address], [address], [facility] 5 14:44:22 Acute thoracic back pain 532336264 Active 2024 HARIKA RAY [address] [place] [address], [address], [facility] 11:56:19 Acute bacterial sinusitis 15327982 Active 2024 HARIKA RAY [address] [place] [address], [address], [facility] 5 11:50:30 Acute contact dermatiti s 415791649 Active 2024 Robin Abbott DO [address] [place] [address], [address], [facility] 5 13:43:30 Chronic intractab le pain 013650857 Active 2024 Robin Abbott DO [address] [place] [address], [address], [facility] 5 12:32:00 Seasonal allergy 287208092 Active 2024 Robin bAbott DO [address] [place] [address], [address], [facility] 5 16:51:52 Problem Notes None recorded. Medical Equipment None Reported. Allergies Allergen ID Allergen Name Allergen Category Reaction Reaction Severity Criticality Documentation Date Start Date Code Code System Note Provider Name and Address Organization Details Recorded Time 6328 cephalexi n medicatio n Not available Not available Not available 09/18/2022 2231 RxNorm Jennifer galeas [facility] 3 09:01:36 6329 pravastat in medicatio n Not available Not available Not available 09/18/2022 39942 RxNorm Jennifer galeas [facility] 3 09:01:42 6330 Bactrim medicatio n Not available Not available Not available 09/18/2022 25227 9 RxNorm Jennifer galeas [facility] 3 09:01:46 6988 oxycodone medicatio n Not available Not available Not available 02/18/2023 7804 RxNorm GI upset Rony Dentserge galeas [facility] 4 15:03:17 Medications Name [...] CAPSULES ONE HOUR PRIOR TO DENTAL WORK. active Not Available Not Available No t Available fentanyl 50 mcg/hr transdermal patch Apply 1 patch every 72 hours by transderm al route for 30 days. 06/14 completed Not Available Not Available Not Available prednisone 10 mg tablet PLEASE SEE ATTACHED FOR DETAILED DIRECTION S active Not Available Not Available No t Available doxycycline hyclate 100 mg capsule TAKE 1 CAPSULE BY MOUTH TWICE A DAY FOR 10 DAYS 11/24 completed Not Available Not Available Not Available Mylanta Maximum Strength 400 mg-400 mg-40 mg/5 mL oral suspension Take 10 mL 3 times a day by oral route as needed for 30 days. 2024 active Not Available Not Available Not Avai lable tizanidine 4 mg tablet TAKE 1 TABLET BY MOUTH TWICE A DAY NEEDED 10/24 completed Not Available Not Available Not Available hydrocodone 5 mg-acetamin ophen 325 mg tablet TAKE 1 TABLET BY MOUTH EVERY 6 HOURS NEEDED FOR PAIN 06/14 completed Not Available Not Available Not Available meloxicam 15 mg tablet TAKE 1 TABLET BY MOUTH EVERY DAY 09/19 completed Not Available Not Available Not Available sucralfate 1 gram tablet TAKE 1 TABLET BY MOUTH FOUR TIMES A DAY DIRECTED FOR 15 DAYS 06/02 completed Not Available Not Available Not Available [...] ORAL ROUTE ONCE DAILY FOR 4 DAYS 06/02 completed Not Available Not Available Not Available fondaparinu x 2.5 mg/0.5 mL subcutaneou s solution syringe INJECT 0.5 ML (2.5 MG TOTAL) UNDER THE SKIN DAILY FOR 9 DAYS. 06/02 completed Not Available Not Available Not Available minoxidil 2.5 mg tablet TAKE 2 TABLETS BY MOUTH EVERY DAY 06/02 completed Not Available Not Available Not Available tramadol 50 mg tablet TAKE 1 [...] oral route as needed for 7 days. 06/02 completed Not Available Not Available Not Available hydrocortis one 2.5 % topical cream with perineal applicator INSERT INTO THE RECTUM 2 TIMES A DAY FOR 10 DAYS. 06/02 completed Not Available Not Available Not Available methocarbam ol 750 mg tablet TAKE 1 TABLET BY MOUTH TWICE A DAY NEEDED FOR MUSCLE SPASMS 06/02 completed Not Available Not Available Not Available dicyclomine 20 mg tablet TAKE 1 TABLET BY MOUTH FOUR TIMES A DAY NEEDED FOR 7 DAYS 11/14 completed Not Available Not Available Not Available amitriptyli ne 10 mg tablet TAKE 1 TABLET BY MOUTH EVERY DAY AT BEDTIME FOR 30 DAYS 06/02 completed Not Available Not Available Not Available doxycycline monohydrate 100 mg capsule TAKE 1 CAPSULE BY MOUTH TWICE A DAY FOR 10 DAYS 09/19 completed Not Available Not Available Not Available flunisolide 25 mcg (0.025 %) nasal spray [place] 2 sprays twice a day by intranasa l route for 30 days. 10/10/ 2025 active Not Available Not Available Not Avai lable pantoprazol e 40 mg tablet,triston yed release TAKE 1 TABLET BY MOUTH EVERY DAY DIRECTED 06/02 completed Not Available Not Available Not Available neomycin-po lymyxin-dex ameth 3.5 mg/mL-10,00 0 unit/mL-0.1 % eye drops INSTILL 1 DROP INTO AFFECTED EYE(S) EVERY 3 TO 4 HOURS 06/02 completed Not Available Not Available Not Available hyoscyamine 0.125 mg sublingual tablet TAKE 1 TABLET TWICE A DAY SUBLINGUA LLY NEEDED FOR 14 DAYS. 06/02 completed Not Available Not Available Not Available [...] PUFFS EVERY 4 HOURS NEEDED FOR WHEEZING 06/02 completed Not Available Not Available Not Available hydrocortis one 2.5 % topical ointment [...] EVERY 4 HOURS NEEDED FOR SEVERE PAIN 06/02 completed Not Available Not Available Not Available betamethaso ne dipropionat e 0.05 % topical ointment APPLY TO AFFECTED AREAS TWICE A DAY UP TO 2 WEEKS ON, 1 WEEK OFF NEEDED FOR RASH 09/19 completed Not Available Not Available Not Available methadone 5 mg tablet Take 1 tablet twice a day by oral route for 7 days. 2024 active Not Available Not Available Not Avai lable ondansetron 4 mg disintegrat ing tablet TAKE 1 TABLET BY MOUTH EVERY 8 HOURS NEEDED FOR NAUSEA 06/02 completed Not Available Not Available Not Available fluticasone propionate 50 mcg/actuati on nasal spray,suspe nsion SPRAY 2 SPRAYS INTO EACH NOSTRIL EVERY DAY FOR 30 DAYS 10/24 completed Not Available Not Available Not Available doxycycline hyclate 100 mg tablet Take 1 tablet twice a day by oral route for 7 days. 05/05 completed Not Available Not Available Not Available diazepam 5 mg tablet TAKE 1 TABLET BY MOUTH TWICE A DAY active Not Available Not Available No t Available finasteride 1 mg tablet TAKE 1 TABLET BY MOUTH EVERY DAY 06/02 completed Not Available Not Available Not Available amoxicillin 875 mg-potassiu m clavulanate 125 mg tablet TAKE 1 TABLET BY MOUTH TWICE A DAY FOR 10 DAYS 10/24 completed Not Available Not Available Not Available oxycodone 5 mg tablet TAKE 1 TABLET BY MOUTH EVERY 8 HOURS NEEDED FOR PAIN. 06/14 completed Not Available Not Available Not Available enoxaparin 40 mg/0.4 mL subcutaneou s syringe INJECT 0.4 ML (40 MG TOTAL) UNDER THE SKIN DAILY FOR 12 DAYS. 06/02 completed Not Available Not Available Not Available ezetimibe 10 mg tablet TAKE 1 TABLET BY MOUTH EVERY DAY FOR 30 DAYS active Not Available Not Available No t Available rosuvastati n 5 mg tablet TAKE 1 TABLET BY MOUTH EVERY DAY 01/23 completed Not Available Not Available Not Available Linzess 145 mcg capsule TAKE 1 CAPSULE BY MOUTH EVERY DAY 06/02 completed Not Available Not Available Not Available Eliquis 2.5 mg tablet TAKE 1 TABLET (2.5 MG TOTAL) BY MOUTH TWICE A DAY FOR 14 DAYS 11/30 completed Not Available Not Available Not Available Repatha SureClick 140 mg/mL subcutaneou s pen injector INJECT 1 ML (140 MG TOTAL) UNDER THE SKIN EVERY 14 DAYS. active Not Available Not Available No t Available Phenohytro 16.2 mg-0.1037 mg-0.0194 mg tablet TAKE 2 TABLETS BY MOUTH 3 TIMES A DAY NEEDED active Not Available Not [...] 1 TABLET BY MOUTH EVERY DAY DIRECTED 06/02 completed Not Available Not Available Not Available Vitals Date Recorded Body height Body mass index (BMI) Body weight Heart rate Oxygen saturation Oxygen saturation in Arterial blood by Pulse oximetry Systolic And Diastolic Provider Name and Address Organization Details Last Updated DateTime 179.07 cm 25 kg/m2 01284.8 5 g 99 /min 98 % 98 % 140/60 mm[Hg] Krupa Cobb [facility] 16:16:42 Date Recorded Body height Body mass index (BMI) Body weight Heart rate Oxygen saturation Oxygen saturation in Arterial blood by Pulse oximetry Systolic And Diastolic Provider Name and Address Organization Details Last Updated DateTime 179.07 cm 23.5 kg/m2 09358.3 3 g 71 /min 98 % 98 % 138/82 mm[Hg] Lizeth Rosas [facility] 11:51:27 Date Recorded Body height Provider Name an d Address Organization Details Last Updated DateTime 12/30/2024 179.07 cm Lizeth Rosas [facility] 12/30/2024 13:27:30 Date Recorded Body height Body mass index (BMI) Body weight Heart rate Oxygen saturation Oxygen saturation in Arterial blood by Pulse oximetry Systolic And Diastolic Provider Name and Address Organization Details Last Updated DateTime 179.07 cm 24.3 kg/m2 55486.4 5 g 97 /min 96 % 96 % 126/84 mm[Hg] Lizeth Rosas [facility] 11:56:40 Social History Question Answer Notes LastModified by Organizat ion Details LastModified Time Tobacco Smoking Status Former Smoker Robin Abbott, DO [address] [place] [address], [place], [address], [facility] 09/19/2022 14:19:29 What Was The Date Of Your Most Recent Tobacco Screening? 06/02/2025 [email or web address] Information not available 06/02/2025 Sex: Unknown Functional Status Question Answer Note LastModified by Organization D etails LastModified Time Do you or have you ever used any other forms of tobacco or nicotine? No Information not available 09/19/2022 Mental Status None recorded. Family History Nothing Reported. Medical History No medical history recorded. Past Encounters Encounter ID Performer Location Encounter Start Date Encounter Closed Date Diagnosis/Indication Diagnosis SNOMED-CT Code Diagnosis ICD10 Code Diagnosis IMO Codes Diagnosis Note [id number] Robin Abbott [facility] [address] [facility], [place] [address] 09/19/2022 14:01:07 09/19/2022 15:12:55 Irritable bowel syndrome 63229238 K58.9 using diazepam Cervical f acet joint pain 528638604 M54.2 [place] [facility] for injections Prediabetes 195755896 R7 3.03 will need labwork Cielo thyroiditis 21 904370 E06.3 will need tsh Hyperlipidemia 63422967 E78.5 will need to rechk [id number] Robin Abbott [facility] [address] [facility], [place] [address] 11/26/2022 14:41:03 11/26/2022 15:15:18 Prediabetes 103105524 R73.03 doing great no DM< a1c is 5.9 Insomnia 461725319 G47.0 0 [place] [id number] Robin Abbott [facility] [address] [facility], [place] [address] 04/09/2023 10:30:35 04/09/2023 11:25:09 Active or passive immunization 691127707 Z23 Adult heal th examination 236559061 Z00.00 Lumbar spondylosis 61504 0009 M47.896 stabke radha navarrete is his neck Cielo thyroiditis 21 888194 E06.3 will need tsh Hyperlipidemia 32402228 E78.5 will need to rechk Vitamin D deficiency 347 61249 E55.9 Cervico-oc cipital neuralgia 39899616 M54.81 [id number] Robin Abbott [facility] [address] [facility] [address] [place] [address] 10/25/2023 11:09:46 10/25/2023 15:09:21 Irritable bowel syndrome 69069541 K58.9 bentyl unhelpful we will try donnatol Diverticul osis of colon 507130768 K57.30 we will consider treating this if above unhelpful [id number] Robin Abbott [facility] [address] [facility] [address] [place] [address] 11/15/2023 14:32:43 11/15/2023 15:39:21 Irritable bowel syndrome 59009596 K58.9 bentyl unhelpful we will try donnatol Epigastric pain 65158395 R10.13 stop atorvastat in stop oxycodstop pepcid use omeprazole [id number] Robin Abbott [facility] [address] [facility] [address] [place], [address] [facility] [place] [address] 01/10/2024 14:50:25 01/10/2024 15:57:54 Irritable bowel syndrome 88883982 K58.9 this was the rosuvastat in Epigastric pain 87045161 R10.13 stop atorvastat in stop oxycodstop pepcid use omeprazole Hiatal her karley with gastroesophageal reflux 324556200 K21.9 discussed re scalp hair look Depression screening 171 440620 Z13.31 neg;;;; Hyperlipidemia 43252396 E78.5 will need to rechk Lumbar spondylosis 45204 0009 M47.896 stabke radha navarrete is his neck Male pattern alopecia 87 026011 L64.9 Myalgia ca used by statin 6874737283 1355253 T46.6X5D will need to order lab [id number] Robin Abbott [facility] [address] [facility] [address] [place] [address] 04/14/2024 11:00:13 04/14/2024 11:59:03 Active or passive immunization 620250733 Z23 hid Adult heal th examination 236368870 Z00.01 as noted he will call the [facility] Depression screening 171 608446 Z13.31 neg;;;; Hiatal her karley with gastroesophageal reflux 785704591 K21.9 discussed re scalp hair look Headache 03758011 R51.9 has been stable for the most part but cant get Epigastric pain 76199719 R10.13 recent worseningu se omeprazole and can increase to bid for 10 days and see if this exacerbati on feels better Cervico-oc cipital neuralgia [id number] M54.81 [id number] Robin Abbott [facility] [address],[facility] [address] 11/24/2024 13:59:01 11/24/2024 15:54:27 Gastritis 5906271 K29.00 will switch up his medication Fever [id number] R50.9 will send referral for nurse consult Hiatal her karley with gastroesophageal reflux [id number] K21.9 meds adjusted [id number] Robin Abbott [facility] [address], [facility] [address] 11/30/2024 16:03:15 12/01/2024 08:12:54 Abdominal bloating [id number] R14.0 see below Diverticul osis of colon 452074994 K57.30 we will consider treating this if above unhelpful Epigastric pain 03305747 R10.13 long detailed discussion we will eliminate ALL the otc and rx pain meds this is a must as otc nsaid gastritis is a real possibilit yalso will have him stop the repatha (having a lot of URI and laryngeal mucous) Hyperlipidemia 49713894 E78.5 will need to rechk Anemia 444213938 D64.9 will rechk Depression screening 171 892072 Z13.31 neg;;;; [id number] Robin Abbott [facility] [address], [place] [address] 12/21/2024 11:38:13 12/21/2024 13:58:35 Iron deficiency anemia 44606533 D50.8 [id number] will set up with lab work Acute hemo rrhagic gastritis 0672138 K29.01 [id number] need endoscope Delayed ga stric emptying [id number] K30 461315 ? Hiatal hernia 26743638 K 44.9 [id number] Gastric spasm 349184041 K31.89 [id number] will set up with hyosyamine SLcont off meds until he sees [id number] Robin Abbott [facility] [address],[place] [address] 12/30/2024 13:07:47 12/30/2024 13:54:31 Iron deficiency anemia 32290945 D50.8 [id number] will set up with lab work Bleeding from nose 59349 6005 R04.0 63388 dry mucous membranes, recommende d Vaseline History of total knee arthroplasty 8512189015 105 Z96.651 [id number] doing good, getting w Lumbar spondylosis 61096 0009 M47.896 [id number] Robin Abbott [facility] [address],[place] [address] 06/02/2025 11:40:35 06/02/2025 12:59:53 Screening for cardiovascular system disease 198449013 Z13.6 Screening for malignant neoplasm of colon 144959992 Z12.11 Depression screening 171 154178 Z13.31 neg;;;; Hyperlipidemia 11858116 E78.5 will need to rechk General ex amination of patient 505841134 Z00.01 [id number] will order lab Chronic in tractable pain 114487074 G89.29 [id number] after long detailed discussion we will try to get him a fentanyl patch while we wait for the ablation Health Concerns Section Related Observation LastModified by Organization Detai ls LastModified Time None Recorded Concern Status LastModified by Organization Details LastModified Time None Recorded Advance Directives Directive None Recorded Payers Insurance Date Sequence Insurance Name Policy Number Policy Echols Covered Member ID Echols Member ID Guarantor Name 01/29/2025 2 [facility] [employer] PL[employer] F (MEDICARE SUPPLEMENT) [id number] Ralph Velásquez [id number] Ralph Velásquez 05/30/2025 1 [place] [employer] Ralph Velásquez [id number] Ralph Velásquez 05/31/2025 2 [facility] (O) [id number] Ralph Velásquez [id number] Ralph Velásquez Notes Date Note Type Note Provider Name and Address Organization Details Recorded Time 11/25/19 25 text/htm l ROS as noted in the HPI c/o gastritis The patient is participating in this appointment via telemedicine communication with a phone call/video calling service (Doxy)The patient consents to use of these platforms [...] work to check his CBC HARIKA RAY [address] [place] [address], [place], [address], [facility] 11/24/2024 15:41:42 12/01/19 25 text/htm l Abdominal PainReported by PatientAbdominal PainFor location, patient reportsepigastric. For onset/timing, patient reportsbetter. For alleviating factors, patient reportsnothing gives relief. For associated symptoms, patient reportsno fever,no chills,no blood in the urine,no heartburn,no shortness of breath,no nausea,no vomiting,no diarrhea,no constipation,normal stool,no blood in stool, andnormal appetite. For other, patient reportsdenies possible . For pain radiation, patient reportsno radiation. AnemiaReported by PatientHPIFor timing, patient reportsbetter. For associated symptoms, patient reportsno shortness of breath,no chest pain,no abdominal pain,no nausea,no vomiting,no melena,no blood in stool,no weakness,no fatigue,no palpitations,no excessive sweating,normal nails,tolerant of cold,no nonfood cravings,no behavior problems,no symptoms of peripheral neuropathy,normal balance,no jaundice,no pallor, andno weight loss. Care Management - Esophageal RefluxReported by PatientInterim HistoryFor symptoms, patient reportsasymptomatic,no difficulty swallowing,no pain swallowing, andno postprandial pain. For severity, patient reportsimproving. For associated symptoms, patient reportsno frequent coughing,no feeling of fullness/mass in throat,no hoarseness,no food getting stuck,no belching/burping,no nausea,no vomiting,not vomiting blood,no regurgitation,no shortness of breath,no chest pain,no heartburn,no difficulty swallowing,no pain when swallowing,no bad taste,no decreased appetite,no weight loss,no black/tarry stools,no fatigue, andno throat pain. Care Management - HyperlipidemiaReported by PatientHPIFor control, patient reportsusually well controlled,improving, andat goal. For complications, patient reportsno coronary artery disease,no heart attack,no cardiovascular disease,no pancreatitis, andno stroke.ROS as noted in the HPI relates having a great deal of epigastric [...] tylenol got horribly worse when he took cas Abbott, DO [address] [facility], [place], [address], [facility] 11/30/2024 16:56:27 12/22/19 25 text/htm l ROS as noted in the HPI f/u CT discussed results, the patient reports [...] omeprazolewill fu after he sees HARIKA RAY [address] [place], [address], [facility] 12/21/2024 13:13:40 12/31/19 25 text/htm l ROS as noted in the HPI 1 week f/u stomach is improvingwill hold the faecal occult stone culture right now afraid about the oral iron supplementthe patient has endo scheduled which he will do the patient will f/u after his endoscope continue will the omeprazole with famotidine until after the endoscope HARIKA RAY [address] [place], [address], [facility] 12/30/2024 13:49:02 06/02/20 25 text/htm l Care Management - HyperlipidemiaReported by PatientHPIFor control, patient reportsusually well controlled,improving, andat goal. For complications, patient reportsno coronary artery disease,no heart attack,no cardiovascular disease,no pancreatitis, andno stroke. Medicare Annual Wellness VisitReported by PatientSocial/Behavioral HistoryFor diet and nutrition, patient reportshealthy diet. For fracture risk, patient reportsno history of fractures,no recent explained fracture,no sudden unexplained fractures, andno previous musculoskeletal injuries. For physical activity, patient reportsexercises on a regular basis,recent increase in physical activity, andgood physical condition.Mental Status:For depression risk, patient reportsnever feels sad, empty, or tearful,no loss of interest in activities,no significant changes in weight,no sleep disturbances or insomnia,no agitation,no loss of energy,no feelings of worthlessness or guilt,no thoughts of suicide,no history of depression, andno history of mood disorders. For orientation, patient reportsno disorientation to time,no disorientation to date, andno disorientation to place. For concentration and memory, patient reportsno decreased concentrating ability,no memory lapses or loss, anddoes not forget words. For speech/motor difficulties, patient reportsno speech difficulties,no difficulty expressing formulated concepts,no difficulty with fine manipulative tasks,no difficulty writing/copying,no slowed reaction time, anddoes not knock things over when trying to pick them up.Functional AbilityFor hearing, patient reportsno loss of hearing. For vision, patient reportsno vision problems. For activities of daily living, patient reportsable to bathe with limited or no assistance,able to contol urination and bowels,able to dress with limited or no assistance,able to feed self with limited or no assistance,able to get out of chair or bed with limited or no assistance,able to groom with limited or no assistance, andable to toilet with limited or no assistance. For instrumental activities of daily living, patient reportsable to do house work with limited or no assistance,able to grocery shop with limited or no assistance,able to manage medications with limited or no assistance,able to manage money with limited or no assistance,able to prepare meals with limited or no assistance, andable to use the phone with limited or no assistance. For falls risk assessment, patient reportsno frequent falls while walking,no fall in the past year,no fall since last visit, andno dizziness/vertigo. 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
--- OUTSIDE RECORDS SUMMARY | 2025-06-16 20:48 | XMS_ITS | Data Portability ---
Author Organization HARIKA [facility], [address] [place] [address] Assessment No assessment recorded. Plan of Treatment Reminders Order Date Submit Date Provider Last Modified By Organization Details Last Modified Time Details Appointments None recorded. Lab None recorded. Referral None recorded. Procedures None recorded. Surgeries None recorded. Imaging None recorded. Medication Orders Augmentin 875 mg-125 mg tablet 2022 023 JOSE ALEJANDRO [facility]Pharmacy #[id number], [address] [place], [address], 3 17:30:06 Flonase Allergy Relief 50 mcg/actuat ion nasal spray,susp ension 2022 023 [email or web address] [facility]/Pharm[facility] #[id number], [address] [place], [address], 3 08:25:25 Patient TargetsNo targets recorded. Patient Instructions Encounter Date Encounter Id Patient Instructions Last Modified By Organization Details Last Modified Time 08/20/2023 [id number] Acute Sinusitis: Care Instructions [email or web address] Not available 08/20/2023 17:30:02 Based on your [...] take OTC cold medication I would recommend Marla-Selzer Cold/Cough. 5. Mucinex with a lot of water is ok - if you are having trouble clearing your nasal passages of mucous. However, if you start to cough then discontinue - this can increase coughing due to a watery post nasal drip. 6. Saline Nasal [place] is recommended. Since an antibiotic was prescribed [...] notice immediate response. Thank you for using [employer] today, please feel free to contact our office if you have any questions or concerns. Not available 08/20/2023 17:29:20 Reason for Referral [...] active Not Available Not Available Not Avai labcorinne azithromycin 250 mg tablet TAKE 2 TABLETS [...] Heart rate Respiratory rate Body temperature Systolic And Diastolic Provider Name and Address Organization Details Last Updated DateTime 3 180.34 cm 25.8 kg/m2 60046.5 9 g 99 % 99 % 57 /min 18 /min 98 [degF] 182/92 mm[Hg] HARIKA HERNANDEZ [facility] [place], [address] Tim, [place] - [facility] 3 17:18:05 Social History None recorded. Functional Status None recorded. Mental Status None recorded. Family History Nothing Reported. Medical History No medical history recorded. Past Encounters Encounter ID Performer Location Encounter Start Date Encounter Closed Date Diagnosis/Indication Diagnosis SNOMED-CT Code Diagnosis ICD10 Code Diagnosis IMO Codes Diagnosis Note [id number] [facility] [address] [place] [address] 02/20/2016 17:01:31 02/20/2016 19:02:50 [id number] [address] [address] [place] [address] 12/19/2016 10:44:34 12/19/2016 12:12:23 [id number] [address] [address] [place] [address] 11/17/2016 18:47:51 11/17/2016 19:22:26 [id number] [address] [place] [address] 01/09/2018 16:10:21 01/09/2018 16:56:38 [id number] 20[address] [place] [address] 09/15/2018 11:14:19 09/15/2018 12:19:19 [id number] 20[address] [place] [address] 08/31/2018 13:26:41 08/31/2018 15:32:38 [id number] [address] [place] [address] 09/16/2017 11:32:53 09/16/2017 12:29:03 [id number] [address] [place] [address] 06/09/2019 14:21:27 06/09/2019 15:06:37 [id number] [address] [facility] [address] [place] [address] 09/18/2016 11:25:55 09/18/2016 12:11:29 [id number] [place] [place] [address] [facility] [address] [place] [address] 12/14/2016 11:53:57 12/14/2016 12:44:13 [id number] HARIKA HERNANDEZ [address] [place] [address] 08/20/2023 16:57:49 08/20/2023 17:31:37 Acute sinusitis [id number] J01.90 TAKE A PROBIOTIC OR EAT YOGURT [...] Member ID Echols Member ID Guarantor Name 10/24/2024 1 [place]: [employer] Ralph Velásquez [id number] Ralph Velásqeuz 10/24/2024 2 [facility] [employer] (INDEMNITY) [id number] Brigida Velásquez [id number] Ralph Velásquez Notes Date Note Type Note Provider Name and Address Organization Details Recorded Time 08/20/2023 text/html 73 y.o male pt presents with sinus congestion and pressure for 3 weeks. Pt has had Sinusitis in the past. He denies fever, sob or chest pain YOVANI ESPINO, PA [address] [place], [address], HARIKA - [facility] 08/20/2023 17:30:06
[2025-06-17 04:09] LABS: ~HepC Num1 0.08 S/CO (0.00-0.79); ~Hepatitis C Antibody Nonreactive (Nonreactive)
[2025-06-17 05:18] LABS: Hemoglobin A1C 138.8132 umol/L; Total Hemoglobin (HGBA1C) 3710.5392 umol/L
== END 2025-06-16 14:37 | disposition home or self-care (01) ==
LOC: HO.MANLDS 14:36
PROVIDERS: Visit Provider Internal Medicine
DX: Z00.01 Encounter for general adult medical examination with abnormal findings (principal); Z12.5 Encounter for screening for malignant neoplasm of prostate; Z13.1 Encounter for screening for diabetes mellitus; Z13.6 Encounter for screening for cardiovascular disorders; D64.9 Anemia, unspecified; G89.29 Other chronic pain
CPT/HCPCS: 36415; 80053; 80061; 82607; 82728; 82746; 83036; 83540; 84153; 85025; 85652; 86803